=== PATIENT | male | born 1955 | race Caucasian/White ===

== ENCOUNTER → 2022-04-29 13:04 | Outpatient (BNVA) | payer OTHER, SELFPAY | PROVIDERS: Visit Provider Internal Medicine | DX: Z13.89 Encounter for screening for other disorder (principal) ==

== ENCOUNTER 2022-05-13 13:20 | Outpatient (REF) | payer OTHER, SELFPAY ==
[2022-05-13 15:20] LABS: MANUAL DIFF FLAG NO
[2022-05-13 16:04] LABS: Basophils Absolute Auto 0.1 X10*3/uL (0.0-0.2); Basophils Percent Auto 0.8 % (0-2); Eosinophils Absolute Auto 0.8 X10*3/uL (0.0-0.4); Eosinophils Percent Auto 10.5 % (0-4); Hematocrit 36.8 % (42.0-52.0); Hemoglobin 11.8 g/dl (14.0-18.0); Imm Gran Abs Auto 0.02 X10*3/uL (0.00-0.03); Imm Gran Pct Auto 0.3 % (0.0-0.4); Lymphocytes Absolute Auto 2.1 X10*3/uL (1.2-4.9); Lymphocytes Percent Auto 27.4 % (20-40); Mean Corpuscular HGB Conc 32.1 g/dl (31.0-36.0); Mean Corpuscular Hemoglobin 28.4 pg (27.0-33.0); Mean Corpuscular Volume 88.7 fL (80.0-98.0); Mean Platelet Volume 10.5 fL (9.4-12.4); Monocytes Absolute Auto 0.5 X10*3/uL (0.1-1.2); Monocytes Percent Auto 6.6 % (2-11); Neutrophils Absolute Auto 4.2 x10*3/uL (2.0-8.3); Neutrophils Percent Auto 54.4 % (45-73); Platelet Count 251 X10*3/uL (160-400); Red Blood Count 4.15 X10*6/uL (4.60-5.80); Red Cell Distribution Width 13.2 % (11.0-16.0); White Blood Count 7.7 X10*3/uL (4.8-10.8)
[2022-05-13 16:34] LABS: Alanine Aminotransferase 18 U/L (0-40); Albumin Level 4.1 g/dL (3.5-5.0); Alkaline Phosphatase 70 U/L (39-117); Anion Gap 10 (12-20); Aspartate Amino Transferase 17 U/L (5-37); Bilirubin Direct < 0.2 mg/dL (0.0-0.5); Bilirubin Total 0.2 mg/dL (0.0-1.0); Blood Urea Nitrogen 20 mg/dL (9-16); Calcium 9.4 mg/dL (8.4-10.2); Carbon Dioxide 27 mmol/L (22-29); Chloride 107 mmol/L (96-108); Estimated Glomerular Filt Rate 55; Glucose Random 144 mg/dL (60-115); Potassium 5.4 mmol/L (3.3-5.1); Sodium 139 mmol/L (135-145); Total Protein 6.9 g/dL (6.5-8.0)
== END 2022-05-13 13:21 | disposition home or self-care (01) ==
LOC: HO.LAB 13:20
PROVIDERS: PCP Internal Medicine; Visit Provider Internal Medicine
DX: M86.9 Osteomyelitis, unspecified (principal)
CPT/HCPCS: 36415; 80048; 80076; 85025

== ENCOUNTER → 2022-05-27 13:46 | Outpatient (BNVA) | payer OTHER, SELFPAY | PROVIDERS: PCP Internal Medicine; Visit Provider Internal Medicine | DX: Z13.89 Encounter for screening for other disorder (principal) ==

== ENCOUNTER → 2022-06-10 15:54 | Outpatient (RCR) | payer OTHER, SELFPAY ==
[2021-06-26 13:32] LABS: Estimated Average Glucose 246 mg/dL; Hemoglobin A1c % 10.2 %
[2021-08-19 14:59] LABS: MANUAL DIFF FLAG NO
[2021-08-19 15:48] LABS: Basophils Absolute Auto 0.1 X10*3/uL (0.0-0.2); Basophils Percent Auto 0.5 % (0-2); Eosinophils Absolute Auto 0.4 X10*3/uL (0.0-0.4); Eosinophils Percent Auto 3.4 % (0-4); Hematocrit 36.9 % (42.0-52.0); Hemoglobin 12.1 g/dl (14.0-18.0); Imm Gran Abs Auto 0.04 X10*3/uL (0.00-0.03); Imm Gran Pct Auto 0.4 % (0.0-0.4); Lymphocytes Absolute Auto 1.9 X10*3/uL (1.2-4.9); Lymphocytes Percent Auto 18.3 % (20-40); Mean Corpuscular HGB Conc 32.8 g/dl (31.0-36.0); Mean Corpuscular Hemoglobin 28.9 pg (27.0-33.0); Mean Corpuscular Volume 88.3 fL (80.0-98.0); Monocytes Absolute Auto 0.8 X10*3/uL (0.1-1.2); Monocytes Percent Auto 7.7 % (2-11); Neutrophils Absolute Auto 7.3 x10*3/uL (2.0-8.3); Neutrophils Percent Auto 69.7 % (45-73); Platelet Count 322 X10*3/uL (160-400); Red Blood Count 4.18 X10*6/uL (4.60-5.80); Red Cell Distribution Width 12.4 % (11.0-16.0); White Blood Count 10.5 X10*3/uL (4.8-10.8)
[2021-08-19 16:07] LABS: Anion Gap 16 (12-20); Blood Urea Nitrogen 30 mg/dL (9-16); C Reactive Protein 5.42 mg/dL (< or = 0.50); Calcium 10.1 mg/dL (8.4-10.2); Carbon Dioxide 26 mmol/L (22-29); Chloride 102 mmol/L (96-108); Estimated Glomerular Filt Rate 56; Glucose Random 70 mg/dL (60-115); Potassium 4.8 mmol/L (3.3-5.1); Sodium 139 mmol/L (135-145)
[2021-08-19 16:09] LABS: Estimated Average Glucose 249 mg/dL; Hemoglobin A1c % 10.3 %
[2021-08-19 16:33] LABS: Erythrocyte Sedimentation Rate 34 MM/HR (0-15)
[2022-04-29 13:27] LABS: Estimated Average Glucose 163 mg/dL; Hemoglobin A1C 174.6732 umol/L; Hemoglobin A1c % 7.3 %
--- NOTE | ~2022-06-10 | XR_ITS ---
EXAMINATION: XR FOOT, LEFT CLINICAL INFORMATION: Left foot nonhealing wound. COMPARISON: 04/16/2021. TECHNIQUE: AP, lateral, and oblique views of the left foot. FINDINGS: Soft tissue wound in the lateral and plantar surface of the mid foot with overlying densities likely associated with overlying bandages. There are questionable very subtle cortical irregularities and lucencies at the base of the fifth metatarsal bone adjacent to the wound. There is redemonstration of increased sclerosis and deformity of the phalanges of the fifth toe, similar to prior and possibly sequela of remote injury. There is new distortion with a lucent line in the distal phalanx of the first toe, suspicious for fracture. Similar degree of osteoarthritis involving the second through fifth tarsometatarsal joints. XR/XR foot LT min 3V IMPRESSION: 1. Questionable subtle cortical irregularities in the base of the fifth metatarsal bone adjacent to a soft tissue wound in which early osteomyelitis cannot be excluded. Correlate clinically and if indicated consider further correlation with an MR. 2. Interval fracture of the distal phalanx of the first toe. 3. Chronic deformity of the phalanges of the fifth toe.
--- NOTE | ~2022-06-10 | XR_ITS ---
EXAMINATION: XR TOES, LEFT CLINICAL INFORMATION: Nonhealing wound. Question osteomyelitis. COMPARISON: None TECHNIQUE: 3 views of the left toes were obtained. Overlying bandage obscures fine bony detail. FINDINGS: Soft tissue swelling of the first toe. Overlying bandage obscures is bony detail, however, there is no evidence of gross cortical destruction involving the distal first phalanx. The first IP joint is unremarkable. Mild degenerative changes of the first MTP joint. Cortical irregularity of the fifth proximal phalanx is suboptimally visualized although suggestive of an old fracture deformity, likely incompletely healed. XR/XR toe LT min 2V IMPRESSION: -No gross radiographic evidence for osteomyelitis of the first toe. If high clinical suspicion persists, further evaluation can be obtained with MRI imaging. -Cortical irregularity of the fifth proximal phalanx is suboptimally visualized although suggestive of an old fracture deformity, likely incompletely healed. Correlation with point tenderness recommended. Additional radiographs of the fifth toe can be obtained as clinically indicated.
== END | disposition home or self-care (01) ==
LOC: HO.WCC 04-16 08:01
PROVIDERS: Physician Assistant; PCP Family Medicine; Visit Provider Surgery
DX: E11.621 Type 2 diabetes mellitus with foot ulcer (principal); L97.512 Non-pressure chronic ulcer of other part of right foot with fat layer exposed; E11.51 Type 2 diabetes mellitus with diabetic peripheral angiopathy without gangrene; E11.42 Type 2 diabetes mellitus with diabetic polyneuropathy; I10 Essential (primary) hypertension; Z79.84 Long term (current) use of oral hypoglycemic drugs; Z72.0 Tobacco use; Z89.421 Acquired absence of other right toe(s); Z95.1 Presence of aortocoronary bypass graft
CPT/HCPCS: 11042; 11043; 11044; 11045; 36415; 73630; 73660; 80048; 83036; 84134; 85025; 85652; 86140; 87070; 87071; 87077; 87186; 87205; 88304; 88305; 88311; 97597; 99212

== ENCOUNTER 2023-04-21 13:53 | Outpatient (AMB) | payer OTHER, SELFPAY ==
--- NOTE | 2023-04-21 13:59 | A.OFFVIS_ITS ---
Intake Vital Signs 3 04/21/23 14:05 Height 5 ft 10 in Weight 205 lb BMI 29.4 Pulse 100 Pulse Source Pulse Oximeter Temp 98.4 F Temp Source Oral Pulse Oximetry (%) 99 Intake Visit Reasons: Ref.Wound C.osteom.X-Ray done in [facility] Allergies No Known Allergies Allergy (Verified 04/21/23 14:26) HPI Ref.Wound C.osteom.X-Ray done in [facility] 2 HPI0 Details He is referred by Wound Center for left third toe OM ,Pseudomonas aeruginosa cause. I had seen him 05/2022 for Acinetobacter OM and received Bactrim DS as not interested in usp IV treatment. He has had treatment with Doxycycline recently and this caused nausea. He has tolerated Levaquin in past and educated on risk of tendon rupture,cardiac events ,Cdiff and will proceed. [facility] Medical History Osteomyelitis Diabetes mellitus Review of Systems Const All systems reviewed & are unremarkable except as noted in HPI and below Physical Exam Vital Signs: Last Vital Signs Temp 98.4 F 04/21/23 14:05 Pulse 100 04/21/23 14:05 Pulse Ox 99 04/21/23 14:05 BMI result Body Mass Index 29.4 Const Other: General: cooperative Orientation/consciousness: patient oriented x3 HEENT Head: Yes normal to inspection Mouth: Normal oral and palatal mucosa present Eyes General: appearance normal, both eyes and all related structures Pupils: Equal, round and reactive pupils present Resp Effort & Inspection: normal respiratory effort Cardio Rate: regular rate Rhythm: regular rhythm GI Palpation (GI): Soft to palpation and nontender General: Yes no CVA tenderness Back/Spine/Pelvis Back: no CVA tenderness Skin General skin exam: no rashes or lesions noted Neuro General: patient oriented x3 Cranial nerves: Yes CN's II-XII intact bilaterally and Yes Equal, round and reactive pupils present Extrem Other: ulcer tip of toe neuropathy Psych Appearance: grossly normal Assessment & Plan Assessment & Plan (1) Osteomyelitis: Comment: He has recent ulcer,same area I had seen him in past for Code(s): M86.9 - Osteomyelitis, unspecified Plan: Levaquin 4-6 weeks. See in one month. Contact us prn need also Medications: New 2 levofloxacin 750 mg PO DAILY 30 tab-caps 1RF 30 days Discontinued 2 sulfamethoxazole-trimethoprim 800-160 mg (Bactrim DS) Discontinued Reason: None 1 tab PO BID 14 days 28 tabs 0RF Coding Level of Care Code New Pt Level 3 (85576) Diagnoses Osteomyelitis M86.9
[2023-04-21 14:05] VITALS: PULSE 100; TEMP 36.9; O2SAT 99; BMI 29.4
== END 2023-04-21 14:58 | disposition home or self-care (01) ==
PROVIDERS: PCP Internal Medicine; Visit Provider Internal Medicine
DX: M86.9 Osteomyelitis, unspecified (principal)
CPT/HCPCS: 99213

== ENCOUNTER → 2023-04-21 13:53 | Outpatient (BNVA) | payer OTHER, SELFPAY | PROVIDERS: PCP Internal Medicine; Visit Provider Internal Medicine ==

== ENCOUNTER 2023-05-19 13:27 | Outpatient (AMB) | payer OTHER, SELFPAY ==
[2023-05-19 13:43] VITALS: PULSE 87; O2SAT 99; BMI 29.8
--- NOTE | 2023-05-19 13:43 | MHC.OFFVIS ---
Intake Vital Signs 05/19/23 13:43 Height 5 ft 10 in Weight 208 lb BMI 29.8 Pulse 87 Pulse Source Pulse Oximeter Pulse Oximetry (%) 99 Intake Visit Reasons: 1 month levaquin follow up Allergies No Known Allergies Allergy (Verified 05/19/23 13:46) HPI 1 month levaquin follow up HPI Details He is doing well and has no complaints [facility] Medical History Osteomyelitis Diabetes mellitus Review of Systems Const All systems reviewed & are unremarkable except as noted in HPI and below Physical Exam Vital Signs: Last Vital Signs Pulse 87 05/19/23 13:43 Pulse Ox 99 05/19/23 13:43 BMI result Body Mass Index 29.8 Const General: cooperative Orientation/consciousness: patient oriented x3 HEENT Head: Yes normal to inspection Mouth: Normal oral and palatal mucosa present Eyes General: appearance normal, both eyes and all related structures Pupils: Equal, round and reactive pupils present Resp Effort & Inspection: normal respiratory effort Cardio Rate: regular rate Rhythm: regular rhythm GI Palpation (GI): Soft to palpation and nontender General: Yes no CVA tenderness Back/Spine/Pelvis Back: no CVA tenderness Skin General skin exam: no rashes or lesions noted Neuro General: patient oriented x3 Cranial nerves: Yes CN's II-XII intact bilaterally and Yes Equal, round and reactive pupils present Extrem General: Yes normal to inspection Psych Appearance: grossly normal Assessment & Plan Assessment & Plan (1) Osteomyelitis: Comment: He has no complaints Code(s): M86.9 - Osteomyelitis, unspecified Plan: Finish antibiotics Coding Level of Care Code Est Pt Level 3 (12047) Diagnoses Osteomyelitis M86.9
== END 2023-05-19 14:21 | disposition home or self-care (01) ==
LOC: HO.HID 13:27
PROVIDERS: PCP Internal Medicine; Visit Provider Internal Medicine
DX: M86.9 Osteomyelitis, unspecified (principal)
CPT/HCPCS: 99213

== ENCOUNTER → 2023-05-19 13:27 | Outpatient (BNVA) | payer OTHER, SELFPAY | PROVIDERS: PCP Internal Medicine; Visit Provider Internal Medicine ==

== ENCOUNTER 2024-01-05 16:17 | Outpatient (AMB) | payer OTHER, SELFPAY ==
--- NOTE | 2024-01-05 15:53 | A.OFFVIS_ITS ---
Intake Visit Reasons: DM on a pump/CONFIRMED Intake Note: NEW Patient presents today to establish treatment for Type Diabetes Mellitus with insulin pump: Last Diabetic eye exam was on: DUE Last Podiatry exam was on: Does not see a Band Tier Most recent HbA1c: DUE Random Glucose- ___ mg/dL, Today Allergies No Known Allergies Allergy (Verified 05/19/23 13:46) [facility] Medical History (Updated 01/05/24 @ 16:03 by MAGNOLIA Ramey) Tubular adenoma of colon Screening for colorectal cancer Reflux esophagitis [place] (myocardial infarction) Obstructive sleep apnea Obesity due to excess calories Migraine LV dysfunction Hypercholesteremia HTN (hypertension) Hearing aid worn Diabetic foot ulcer CAD (coronary artery disease) Abdominal pain Osteomyelitis Diabetes mellitus Surgical History (Updated 01/05/24 @ 16:03 by MAGNOLIA Ramey) History of vasectomy Hx of colonoscopy S/P CABG x 3 Family History (Updated 01/05/24 @ 16:04 by MAGNOLIA Ramey) Father No problems noted. Mother No problems noted. Social History (Updated 01/05/24 @ 16:04 by MAGNOLIA Ramey) Alcohol intake: current Alcohol intake frequency: holidays/special occasions only Patient Tobacco Use Status: Never used Tobacco Coding
--- NOTE | 2024-01-05 15:57 | A.OFFVIS_ITS ---
Vital Signs 01/05/24 16:21 Height 5 ft 10 in Weight 198 lb 6.656 oz BMI 28.5 BP 128/78 Blood Pressure Location Rt brachial Position Sitting Pulse 95 Pulse Source Pulse Oximeter Intake Visit Reasons: DM on a pump/CONFIRMED Intake Note: NEW Patient presents today to establish treatment for Type 2 Diabetes Mellitus with insulin pump: Last Diabetic eye exam was on: Next Month for injections Last Podiatry exam was on: Does not see a Software Engineer Kernel Most recent HbA1c: 8.3%, 01/05/2024 Random Glucose- 193 mg/dL, Today Administrative Services Director Required: No Accompanied by: Self / Same As Patient Allergies No Known Allergies Allergy (Verified 01/05/24 16:33) HPI Comments Details: 68 YO male who is seen in consultation for T2DM at the request of PCP. A1C today in the office 8.3%, A1C 7.3% several months ago. He is on a tandem insulin pump but does not enter carbohydrates into his pump Initially diagnosed with T2DM 1998. Was initially started on treatment with metformin and glyburide Current regimen: T slim X 2 insulin pump Lispro(admelog) Metformin 1000 mg b.i.d. Trulicity 3 mg weekly Farxiga 10 mg daily There is only 5 hours of sensor data as patient just started on a new tandem pump. Started off at 300 and is now down to 210 Pump Settings: Basal 12AM 1.13 units/hour Sensitivity 12 AM 31 Insulin to carb ratio 12 AM 9.5 BG target 12AM 110 mg/dL Reports low sugars none Treats lows with something sweet. Family history of T2DM in maternal grandfather Has eyes checked yearly, last eye exam: October 2023 sees retinal specialist Has retinopathy has amd [place] [facility] [facility] [place] small foot ulcer on left foot great toe, has Charcot arthropathy has had a 2 toes amputated right foot, partial amputation left toe previously was followed by Podiatry a + nephropathy, on LUIS. eGFR 55 03/2022 Has HLD, on statin. Last LDL [] as measured on []. Labs not available today Has CAD. 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 [facility] Medical History (Updated 01/05/24 @ 16:03 by MAGNOLIA Ramey) Tubular adenoma of colon Screening for colorectal cancer Reflux esophagitis [place] (myocardial infarction) Obstructive sleep apnea Obesity due to excess calories Migraine LV dysfunction Hypercholesteremia HTN (hypertension) Hearing aid worn Diabetic foot ulcer CAD (coronary artery disease) Abdominal pain Osteomyelitis Diabetes mellitus Surgical History (Updated 01/05/24 @ 16:03 by MAGNOLIA Ramey) History of vasectomy Hx of colonoscopy S/P CABG x 3 Family History (Updated 01/05/24 @ 16:04 by MAGNOLIA Ramey) Father No problems noted. Mother No problems noted. Social History (Updated 01/05/24 @ 16:04 by MAGNOLIA Ramey) Alcohol intake: current Alcohol intake frequency: holidays/special occasions only Patient Tobacco Use Status: Never used Tobacco Physical Exam Vital Signs: Last Vital Signs Pulse 95 01/05/24 16:21 BP 128/78 01/05/24 16:21 BMI result Body Mass Index 28.5 Absence of Cushingoid features. Absence of acromegalic features. Neck exam reveals nl size thyroid about 15 gms. No thyroid nodules palpable. No carotid bruits present. Lungs CTA. Heart S1 S2, Reg R/R. No M/R/ G. Skin exam reveals absence of vitiligo or acanthosis nigricans. Abdominal exam reveals Soft NT/ND with NA BS. No organomegaly present. Const Other: Absence of Cushingoid features. Absence of acromegalic features. Neck exam reveals nl size thyroid about 15 gms. No thyroid nodules palpable. Heart S1 S2, Reg R/R. No M/R G. Skin exam reveals absence of vitiligo or acanthosis nigricans. No edema. Visual exam of foot performed. Small ulcer covered right great toe, inter digit maceration/fissuring left foot onychomycosisof nail bed, well trimmed, no callouses. charcot foot deformity bilateral with dropped arch, bunions Neck Other: . Extrem Other: Visual exam of foot performed. No ulcerations or open lesions. No onchomycosis, no callouses.Pulses 2 + distally Sensation intact to monofilament exam. Vibratory sensation sensed is intact with 128 Hz tuning fork Results AMB Hemoglobin A1c AMB Hemoglobin A1c 8.3 % Last Edit by MAGNOLIA Ramey on 01/05/24 16:43 Assessment & Plan Assessment & Plan (1) Diabetes mellitus: Code(s): E11.9 - Type 2 diabetes mellitus without complications Category: Medical Plan: 68-year-old type 2 diabetic here today for new consult. He is on a tandem T slim X 2 insulin pump, Farxiga, metformin and Trulicity. A1c in the office today is 8.3%. He has not been entering carbs into his pump and today we rev iewed the fact that 40% of his insulin should be to cover meals. He has agreed to count carbs and to add these to his pump and was shown how before the start of each meal. I will see him back in 2 weeks to review his pump download. He should continue to follow with his dot net architect, retinal specialist, automotive leasing sales representative, vascular MD and forest resource specialist and he will be given a referral to Podiatry. Prescription sent today for Trulicity, Farxiga, metformin, insulin for pump, ketone test strips, glucose tablets. Backup Lantus will not be sent today until we have an idea of how much basal insulin he is using. Orders: Orders AMB Hemoglobin A1c Today E11.9 - Type 2 diabetes mellitus without complications Patient Instructions: The patient was counseled to achieve a target A1C of 7% (154 avg). Fasting blood sugars should be 90-130 in the morning and less than 180 two hours after meals. Reviewed the relationship between poor diabetic control and the development of complications. Briefly reviewed the need for ketone testing with higher sugars. Patient has unfamiliar with content and we will schedule him to see both the Lidia Perez RD and high school french teacher Coding Level of Care Code New Pt Level 5 (63959) Complex EM visit Add On G2211 Diagnoses Diabetes mellitus E11.9 Time Spent (min) 50 Comment Time spent reviewing labs/provider notes, face to face, chart doc
[2024-01-05 16:21] VITALS: BP 128/78; PULSE 95; BMI 28.5
[2024-01-05 16:37] LABS: Glucose, Whole Blood 193 mg/dL (60-115)
== END 2024-01-07 10:31 | disposition home or self-care (01) ==
PROVIDERS: PCP Internal Medicine; Visit Provider Nurse Practitioner Adult Health
DX: E11.9 Type 2 diabetes mellitus without complications (principal); Z79.4 Long term (current) use of insulin
CPT/HCPCS: 99204; G2211

== ENCOUNTER → 2024-01-05 16:17 | Outpatient (BNVA) | payer OTHER, SELFPAY | PROVIDERS: PCP Internal Medicine; Visit Provider Nurse Practitioner Adult Health | DX: E11.9 Type 2 diabetes mellitus without complications (principal); Z96.41 Presence of insulin pump (external) (internal) | CPT/HCPCS: 82947; 83036 ==

== ENCOUNTER 2024-01-26 11:02 | Outpatient (AMB) | payer OTHER, SELFPAY ==
--- NOTE | 2024-01-26 09:18 | A.OFFVIS_ITS ---
Vital Signs 01/26/24 11:06 Height 5 ft 10 in Weight 198 lb 6.656 oz BMI 28.5 BP 134/80 Blood Pressure Location Rt brachial Position Sitting Pulse 85 Pulse Source Pulse Oximeter Intake Visit Reasons: DM/LVM Intake Note: Patient presents today for a follow-up on Type 2 Diabetes Mellitus/ Insulin Pump: Last Diabetic eye exam was on: Next Month for injections Last Podiatry exam was on: Does not see a Intellectual Property Paralegal Most recent HbA1c: 8.3%, 01/05/2024 Random Glucose- 112 mg/dL, Today Fast Food Fry Cook Required: No Accompanied by: Self / Same As Patient Allergies No Known Allergies Allergy (Verified 01/05/24 16:33) HPI Comments Details: 68 YO male who is seen in f/u for T2DM. He was seen as an initial consult several weeks ago at which time he was counseled to start entering carbohydrate grams into his pump which he has started to do. A1C 01/05/24 8.3%, previous A1C 7.3%. He is on a tandem insulin pump. [place] [facility] [place] which he reports is improving. He has been referred also to Dr. Sanchez. Initially diagnosed with T2DM 1998. Was initially started on treatment with metformin and glyburide Current regimen: T slim X 2 insulin pump Lispro(admelog) Metformin 1000 mg b.i.d. Trulicity 3 mg weekly Farxiga 10 mg daily Dexcom average glucose: 178 14 day continuous glucose monitor report reviewed Glucose Managment indicator 7.6 % Days with CGM data [ ] % TIme in ranges: 30% very high (above 250) 11 % high ?(181-250) 56 % in range ?(70-180] 0% low (69-55) 0 % ?very low (below 54) Interpretation [ baseline 20 points over target with postprandial elevations] Pump Settings: Basal 12AM 1.13 units/hour Sensitivity 12 AM 31 Insulin to carb ratio 12 AM 9.5 NEW 8.5 BG target 12AM 110 mg/dL Reports low sugars none Treats lows with something sweet. Family history of T2DM in maternal grandfather Has eyes checked yearly, last eye exam: October 2023 sees retinal specialist Has retinopathy has amd [place] [facility] [place] small foot ulcer on left foot great toe, has Charcot arthropathy has had a 2 toes amputated right foot, partial amputation left toe previously was followed by Podiatry a + nephropathy, on LUIS. eGFR 55 03/2022 Has HLD, on statin. Last LDL [] as measured on []. Labs not available today Has CAD. 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 COUNT INCLUDES THE [facility] Medical History (Updated 01/05/24 @ 16:03 by MAGNOLIA Ramey) Tubular adenoma of colon Screening for colorectal cancer Reflux esophagitis [place] (myocardial infarction) Obstructive sleep apnea Obesity due to excess calories Migraine LV dysfunction Hypercholesteremia HTN (hypertension) Hearing aid worn Diabetic foot ulcer CAD (coronary artery disease) Abdominal pain Osteomyelitis Diabetes mellitus Surgical History (Updated 01/05/24 @ 16:03 by MAGNOLIA Ramey) History of vasectomy Hx of colonoscopy S/P CABG x 3 Family History (Updated 01/05/24 @ 16:04 by MAGNOLIA Ramey) Father No problems noted. Mother No problems noted. Social History (Updated 01/05/24 @ 16:04 by MAGNOLIA Ramey) Alcohol intake: current Alcohol intake frequency: holidays/special occasions only Patient Tobacco Use Status: Never used Tobacco Physical Exam Vital Signs: Last Vital Signs Pulse 85 01/26/24 11:06 BP 134/80 01/26/24 11:06 BMI result Body Mass Index 28.5 Const Other: Absence of Cushingoid features. Absence of acromegalic features. Neck exam reveals nl size thyroid about 15 gms. No thyroid nodules palpable. Heart S1 S2, Reg R/R. No M/R G. Skin exam reveals absence of vitiligo or acanthosis nigricans. Office Procedures Glucose Monitoring Details Details: See [facility] [address] - Glucose monitoring, continuous-physician I&R Procedure code (CPT) selection complete Assessment & Plan Assessment & Plan (1) Diabetes mellitus: Code(s): E11.9 - Type 2 diabetes mellitus without complications Category: Medical Plan: 68-year-old type 2 diabetic on a tandem insulin pump with macro/macrovascular complications of CAD, Charcot foot, retinopathy, nephropathy and neuropathy with recent A1c of 8.3%. GME my on current pump download for the past 2 weeks is 7.6% with some postprandial bumps upward. Insulin carb ratio adjusted to 1: 8.5 to give more pre-prandial insulin and he was advised to bolus 10 minutes before the meals. If his average is not 154 he can reduce the insulin to carb ratio further 1: 7.5. The patient made the setting changed today in the clinic which was confirmed by provider. Would like to get his A1c in the 7% range to prevent progression of diabetic complications and promote better wound healing of his foot ulcer. He has picked up ketone test strips and we again reviewed protocol today for DKA prevention and treatment. I will see him back in 4 weeks to relook at his pump download. The patient had an opportunity to ask questions regarding treatment plan. The patient expressed understanding and agreement with the above treatment plan. The patient is aware they should contact our office by phone for worsening glucose readings or for any low blood sugars which may warrant a change in diabetes medication. Compliance is encouraged with medications and any followup testing/consults which may have been ordered. Orders: Orders AMB Glucose Monitoring Today E11.9 - Type 2 diabetes mellitus without complications Medications: New acetone (urine) test (Ketone Urine Test strips) P.r.n. t.i.d. glucose over 250, nausea, vomiting or illness 25 ea 1RF dapagliflozin propanediol (Farxiga) 10 mg PO DAILY 90 days 90 tabs 3RF dulaglutide (Trulicity) 3 mg (0.5 mL) subcut QWEEK 84 days 6 mL 3RF lisinopril 40 mg PO DAILY 90 days 90 tabs 3RF metformin 1,000 mg PO BID 90 days 180 tabs 3RF glucagon 3 mg/actuation (Baqsimi) 3 mg intranasal ONCE 30 days PRN 2 ea 1RF Unresponsive hypoglycemia may repeat in 15min Patient Instructions: The patient was counseled to achieve a target A1C of 7% (154 avg). Fasting blood sugars should be 90-130 in the morning and less than 180 two hours after meals. Reviewed the relationship between poor diabetic control and the development of complications. Troubleshooting after starting new pod or inserting new insulin set: Occlusion, adhesive tape sensitivity, redness Check BG 2 hours after site change Safety information: Importance of a backup plan, for manual injections, proper prescriptions and emergency supplies ketone strips, and rules for testing for ketones Symptoms of DKA (diabetic ketoacidosis): early: frequent urination, dry mouth, fatigue, feeling ill, severe symptoms: ketones in the urine, abdominal pain, nausea, vomiting and weakness. It is important to hydrate with sugar free liquids every 15-30 minutes and bring the sugars down to normal levels. If you are moderate or severe with ketones or unable to bring glucose to less than 200, go to the emergency room. Wear closed toe shoes, never walk barefooted and inspect the feet daily. For any signs of infection or open wound patient you should notify your PCP or go to urgent care/ER. Coding Level of Care Code Tele Est Pt Level 3 (23908) Diagnoses Diabetes mellitus E11.9 CPT Codes Details - CPT: 48265 - Glucose monitoring, continuous-physician I&R ([id number]) Time Spent (min) 30 Comment Reviewing labs/provider notes, glucose sensor/pump reports, face to face, chart doc
[2024-01-26 11:06] VITALS: BP 134/80; PULSE 85; BMI 28.5
[2024-01-26 11:19] LABS: Glucose, Whole Blood 112 mg/dL (60-115)
== END 2024-01-26 11:33 | disposition home or self-care (01) ==
LOC: HO.ENCR 11:02
PROVIDERS: PCP Internal Medicine; Visit Provider Nurse Practitioner Adult Health
DX: E11.9 Type 2 diabetes mellitus without complications (principal)
CPT/HCPCS: 95251; 99213

== ENCOUNTER → 2024-01-26 11:02 | Outpatient (BNVA) | payer OTHER, SELFPAY | PROVIDERS: PCP Internal Medicine; Visit Provider Nurse Practitioner Adult Health | DX: E11.610 Type 2 diabetes mellitus with diabetic neuropathic arthropathy (principal); E11.319 Type 2 diabetes mellitus with unspecified diabetic retinopathy without macular edema; E11.21 Type 2 diabetes mellitus with diabetic nephropathy; E11.40 Type 2 diabetes mellitus with diabetic neuropathy, unspecified; Z96.41 Presence of insulin pump (external) (internal) | CPT/HCPCS: 82947 ==

== ENCOUNTER 2024-02-16 14:36 | Outpatient (RCR) | payer OTHER, SELFPAY | END 2024-03-14 12:41 | disposition home or self-care (01) | LOC: HO.WCC 14:36 | PROVIDERS: Visit Provider Surgery | DX: E11.621 Type 2 diabetes mellitus with foot ulcer (principal); L97.512 Non-pressure chronic ulcer of other part of right foot with fat layer exposed; Z79.4 Long term (current) use of insulin; Z79.85 Long-term (current) use of injectable non-insulin antidiabetic drugs; Z79.84 Long term (current) use of oral hypoglycemic drugs; Z79.82 Long term (current) use of aspirin; Z79.899 Other long term (current) drug therapy | CPT/HCPCS: 11042; 11043; 11044; 11730; 87070; 87073; 87077; 87186; 87205; 97597; 99212; 99213 ==

== ENCOUNTER 2024-02-23 10:30 | Outpatient (AMB) | payer OTHER, SELFPAY ==
--- NOTE | 2024-02-23 07:50 | A.OFFVIS_ITS ---
Vital Signs 02/23/24 10:36 Height 5 ft 10 in Weight 198 lb 6.656 oz BMI 28.5 BP 120/78 Blood Pressure Location Rt brachial Position Sitting Pulse 79 Pulse Source Pulse Oximeter Intake Visit Reasons: DM/CONF Intake Note: Patient presents today for a follow-up on Type 2 Diabetes Mellitus/ Insulin Pump: Last Diabetic eye exam was on: February for injections Last Podiatry exam was on: Does not see a Brick Handler Most recent HbA1c: 8.3%, 01/05/2024 Random Glucose- 110 mg/dL, Today Junior Analyst Required: No Accompanied by: Self / Same As Patient Allergies No Known Allergies Allergy (Verified 01/05/24 16:33) HPI Comments Details: 68 YO male who is seen in f/u for T2DM on a Tandem insulin pump. A1C 01/05/24 8.3%, previous A1C 7.3%. He was seen as an initial consult 01/05/2024 and he has been working on entering all of his carbohydrates into his pump additionally, his carb ratio was adjusted in January to give him more preprandial insulin. He is followed by wound clinic at [facility] for a foot ulcer which he reports is improving. He has been referred also to Dr. Sanchez. He has a Charcot foot. Initially diagnosed with T2DM 1998. Was initially started on treatment with metformin and glyburide Current regimen: T slim X 2 insulin pump Lispro(admelog) Metformin 1000 mg b.i.d. Trulicity 3 mg weekly Farxiga 10 mg daily Dexcom average glucose: 153 I 14 day continuous glucose monitor report reviewed Glucose Managment indicator [ ] % Days with CGM data 70 % TIme in ranges: 5.9 % very high (above 250) 23 % high ?(181-250) 71 % in range ?(70-180] 0 % low (69-55) 0 % ?very low (below 54) 35 % coefficient of variation desired less than 36% Interpretation [ numbers in excellent control without hypoglycemia] Total daily dose 36 units 65% basal 23 units Bolus 35% 12.6 Pump Settings: Basal 12AM 1.13 units/hour Sensitivity 12 AM 31 Insulin to carb ratio 12 AM 8.5 BG target 12AM 110 mg/dL Reports low sugars none Treats lows with something sweet. Family history of T2DM in maternal grandfather Has eyes checked yearly, last eye exam: October 2023 sees retinal specialist Has retinopathy has amd Followed by Wound Care Clinic at [facility]: Has small foot ulcer on left foot great toe, has Charcot arthropathy has had a 2 toes amputated right foot, partial amputation left toe previously was followed by Podiatry a + nephropathy, on LUIS. eGFR 55 03/2022 Has HLD, on statin. Last LDL [] as measured on []. Labs not available today Has CAD. 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 [facility] Medical History Tubular adenoma of colon Screening for colorectal cancer Reflux esophagitis Old [place] (myocardial infarction) Obstructive sleep apnea Obesity due to excess calories Migraine LV dysfunction Hypercholesteremia HTN (hypertension) Hearing aid worn Diabetic foot ulcer CAD (coronary artery disease) Abdominal pain Osteomyelitis Diabetes mellitus Surgical History History of vasectomy Hx of colonoscopy S/P CABG x 3 Family History Father No problems noted. Mother No problems noted. Social History Alcohol intake: current Alcohol intake frequency: holidays/special occasions only Patient Tobacco Use Status: Never used Tobacco Physical Exam Vital Signs: Last Vital Signs Pulse 79 02/23/24 10:36 BP 120/78 02/23/24 10:36 BMI result Body Mass Index 28.5 Const Other: Absence of Cushingoid features. Absence of acromegalic features. Neck exam reveals nl size thyroid about 15 gms. No thyroid nodules palpable. Heart S1 S2, Reg R/R. No M/R G. Skin exam reveals absence of vitiligo or acanthosis nigricans. Visual exam of foot performed. Charcot foot with several toe amputation No ulcerations or open lesions. mild inter digit or fissuring. nails thickened and yellowing, well trimmed, no callouses. Sensation intact to monofilament exam. Office Procedures Glucose Monitoring Details Details: see [facility] [id number] - Glucose monitoring, continuous-physician I&R Procedure code (CPT) selection complete Results Reviewed Results Reviewed: Laboratory Last Values Glucose (Clinic) 110 mg/dL (60-115) 02/23/24 10:42 Assessment & Plan Assessment & Plan (1) Diabetes mellitus: Code(s): E11.9 - Type 2 diabetes mellitus without complications Category: Medical Plan: 68-year-old type 2 diabetic with Charcot foot, foot ulcer followed by wound clinic, cardiac comorbidities, nephropathy, retinopathy and neuropathy with improved glycemic control. Recent pump download shows an average of 153. He is still struggling to enter his carbs prior to his sugars rising and was encouraged to do so. He is no longer followed by the wound center and has an MRI scheduled as he has a prior history of osteomyelitis and has follow up with Dr. Sanchez The patient had an opportunity to ask questions regarding treatment plan. The patient expressed understanding and agreement with the above treatment plan. The patient is aware they should contact our office by phone for worsening glucose readings or for any low blood sugars which may warrant a change in diabetes medication. Compliance is encouraged with medications and any followup testing/consults which may have been ordered. Orders: Orders AMB Glucose Monitoring Today E11.9 - Type 2 diabetes mellitus without complications Medications: New insulin glargine (Lantus Solostar U-100 Insulin) 25 units (0.25 mL) subcut DAILY PRN 6 mL 1RF prn pump failure Patient Instructions: Symptoms of DKA (diabetic ketoacidosis): early: frequent urination, dry mouth, fatigue, feeling ill, severe symptoms: ketones in the urine, abdominal pain, nausea, vomiting and weakness. It is important to hydrate with sugar free liquids every 15-30 minutes and bring the sugars down to normal levels. If you are moderate or severe with ketones or unable to bring glucose to less than 200, go to the emergency room. Troubleshooting after starting new pod or inserting new insulin set: Occlusion, adhesive tape sensitivity, redness Check BG 2 hours after site change Safety information: Importance of a backup plan, for manual injections, proper prescriptions and emergency supplies ketone strips, and rules for testing for ketones The patient was counseled to always carry a source of sugar and on the rule of 15's: Take 3 glucose tablets and repeat again in 15 minutes if blood sugar is not in normal range. Continue to repeat every 15 minutes until blood sugar is normal. The patient was counseled to achieve a target A1C of 7% (154 avg). Fasting blood sugars should be 90-130 in the morning and less than 180 two hours after meals. Reviewed the relationship between poor diabetic control and the development of complications. Check your feet daily looking for any signs of infection, ulceration and seek medical attention if this occurs. Break in shoes gradually and do not wear open-toed shoes or walk barefooted. Coding Level of Care Code Est Pt Level 4 (58543) Diagnoses Diabetes mellitus E11.9 CPT Codes Details - CPT: 24149 - Glucose monitoring, continuous-physician I&R ([id number]) Time Spent (min) 30 Comment Reviewing labs/provider notes, glucose sensor/pump reports, face to face, chart doc
[2024-02-23 10:36] VITALS: BP 120/78; PULSE 79; BMI 28.5
[2024-02-23 10:47] LABS: Glucose, Whole Blood 110 mg/dL (60-115)
--- OUTSIDE RECORDS SUMMARY | 2024-02-29 17:41 | XMS_ITS | Data Portability ---
Author Organization [facility], [facility] Address [address] [place] [address] Assessment Encounter Date Assessment Date Assessment LastModified by Organization Details LastModified Time 06/30/2023 06/30/2023 Assessment: Right ring trigger finger, initial evaluation Plan: Right ring finger flexor tendon sheath cortisone injection is performed in the usual fashion. Follow-up for this problem be on a as needed basis. He understands the option for surgery if this fails to respond to conservative treatment. nas Not available 06/30/2023 17:05:18 Plan of Treatment Reminders Order Date Submit Date Provider Last Modified By Organization Details Last Modified Time Details Appointments None record ed. Lab None record ed. Referral None record ed. Procedures None record ed. Surgeries None record ed. Imaging None record ed. Medication Orders None record ed. Patient TargetsNo targets recorded. Patient InstructionsNo instructions recorded. Reason for Referral None Reported. Procedures Surgical History Date Name Laterality Status Provider Name and Address Organization Details Recorded Time Trigger Finger Kenalog Injection completed Olivia Carvajal MD [address] [facility] [address], [place], [address], [facility]] [facility] 06/30/2023 17:04:27 Imaging Results None recorded. Procedure Notes None recorded. Medical Equipment None Reported. Allergies No known drug allergies Medications Name Sig Start Date Stop Date Status Note LastModified by Organization Details LastModified Time chlorthalidone 25 mg tablet active Not Available Not Available No t Available sulfamethoxazole 800 mg-trimethoprim 160 mg tablet active Not Available Not Availabl e Not Available dextroamphetamine- amphetamine 30 mg tablet active Not Available Not Available Not Available nifedipine ER 60 mg tablet,extended release 24 hr active Not Available Not Availabl e Not Available nifedipine ER 90 mg tablet,extended release 24 hr active Not Available Not Availabl e Not Available metformin 1,000 mg tablet active Not Available Not Available Not Available dextroamphetamine- amphetamine 15 mg tablet active Not Available Not Available Not Available insulin lispro (U-100) 100 unit/mL subcutaneous solution active Not Available Not Available Not Available levofloxacin 750 mg tablet active Not Available Not Available No t Available lisinopril 40 mg tablet active Not Available Not Available Not Available doxycycline hyclate 100 mg tablet active Not Available Not Available Not Available amoxicillin 875 mg-potassium clavulanate 125 mg tablet active Not Available Not Available Not Available oxycodone 5 mg tablet active Not Available Not Available Not Available rosuvastatin 40 mg tablet active Not Available Not Available Not Available tadalafil 5 mg tablet active Not Available Not Available Not Available metoprolol tartrate 25 mg tablet active Not Available Not Available Not Available Farxiga 10 mg tablet active Not Available Not Available Not Available AutoSoft XC Infusion Set 23 active Not Available Not Avail able Not Available t:slim X2 subcutaneous cartridge active Not Available Not Available No t Available Trulicity 3 mg/0.5 mL subcutaneous pen injector active Not Available Not Available Not Available Vitals Date Recorded Body height Body mass index (BMI) Body weight Provider Name and Address Organization Details Last Updated DateTime 06/30/2023 177.8 cm 29.1 kg/m2 92544.25 g JOLLY HOANG [place] - [place] [facility] 06/30/2023 15:23:01 Social History None recorded. Functional Status None recorded. Mental Status None recorded. Family History Nothing Reported. Medical History No medical history recorded. Past Encounters Encounter ID Performer Location Encounter Start Date Encounter Closed Date Diagnosis/Indication Diagnosis SNOMED-CT Code Diagnosis ICD10 Code [id number] MD Juliet Vyas [address] [place] [address] 06/30/2023 14:38:02 07/26/2023 09:24:09 Trigger finger of right hand [id number] M65.341 Health Concerns Section Related Observation LastModified by Organization Detai ls LastModified Time None Recorded Concern Status LastModified by Organization Details LastModified Time None Recorded Advance Directives Directive None Recorded Payers Encounter Date Sequence Insurance Name Policy Number Policy Russ Covered Member ID Russ Member ID Guarantor Name 06/30/2023 1 [facility] [id number] Eran Wren [id number] Eran Wren Notes Date Note Type Note Provider Name and Address Organization Details Recorded Time 06/30/2023 text/html Patient is a pleasant 68-year-old ujwyp-pygl-ajwrd ant male who has a prior history of right long trigger finger, reports the finger is no longer locking but he does have a bit of a PIP flexion contracture due to the chronicity of the problem, here today mainly to discuss complaints of painful locking in the right ring finger. He has had no cortisone injections to the ring finger in the past. He is very good friends with Jolly. Olivia Carvajal MD [address] [place] [address] [address], [place], [address], [facility] [place] [facility] 06/30/2023 17:05:43
--- OUTSIDE RECORDS SUMMARY | 2024-02-29 17:41 | XMS_ITS | Continuity of Care Document ---
Author Organization [facility] Address [address] [place] [address]- Care Team Providers Care Supervisor Pipe Joints Name Role Phone Ino YI, Traci Primary Care Physici an Encounter [facility] Date(s): 01/24/24 - 02/23/24 [facility] [address] [place], [place] [address] Encounter Type: Triage Allergies, Adverse Reactions, Alerts No Known Allergies Immunizations Given and Recorded Vaccine Date Status Refusal Reason influenza virus vaccine, inactivated 03/26/21 Robbie rded influenza virus vaccine, inactivated 01/14/17 Robbie rded influenza virus vaccine, inactivated 03/28/13 Orbbie rded influenza virus vaccine, inactivated 12/19/11 Robbie rded influenza virus vaccine, inactivated 1 12/31/09 Gi mickie influenza virus vaccine, inactivated 2 09/19/09 Gi mickie influenza virus vaccine, inactivated 3 12/20/08 Gi mickie SARS-CoV-2 (COVID-19) mRNA-1273 vaccine 02/21/21 R ecorded pneumococcal 23-valent vaccine 09/04/14 Given influ virus vac, H1N1, inactive(oldterm) 4 09/19/09 Given Hepatitis B Vaccine (old term) 5 09/19/09 Given Hepatitis B Vaccine (old term) 6 09/19/09 Given Hepatitis B Vaccine (old term) 7 09/19/09 Given Pneumococcal Poly (PPV23) (oldterm) 05/19/07 Given diphtheria-tetanus toxoids (DT) 05/08/00 Given 1Admin Note: given on 12-[facility]-09 at [facility] 2Admin Note: [facility] states done at [facility] dosent Know exact date. 3Admin Note: vis sheet 10/30/08 given 4Admin Note: done at work [facility] not sure of date 2009 5Admin Note: Done at [facility] #3 08/22/09 6Admin Note: Done at [facility] #2 02/17/09 7Admin Note: Done at the work Connection at [facility] Problem List Condition Confirmation Course Effective Dates Status Health Status Informant Abdominal aortic atherosclerosis Confirmed Active CAD (coronary artery disease) Confirmed Active Diabetes mellitus with complication Confirmed Active Diabetic foot ulcers Confirmed Active Diarrhea Confirmed Active Hearing aid worn Confirmed Active S/P CABG x 3 Confirmed Active Hypercholesterolemia Confirmed Active HTN (hypertension) Confirmed Active Insulin pump status Confirmed Active LV dysfunction Confirmed Active Migraine Confirmed Active Obesity due to excess calories Confirmed Active Obstructive sleep apnea Confirmed Active [place] (myocardial infarction) Confirmed Active Reflux esophagitis Confirmed Active Tubular adenoma of colon Confirmed Active Social History Social History Type Response Smoking Status Former smoker, quit more than 30 days ago; Type: Cigarettes; Tobacco use times per day: <1 pack a day; Started at age: 22; Stopped at age: 27; entered on: 10/22/21 Sex Sex Representation Male (finding) Patient Care team information Care Team Personnel Name: Devon Parikh RN Position: [facility] RN Member Role: Primary Care Nurse Name: Noy Harkins RN Position: [facility] RN Member Role: Primary Care Nurse Name: Liliana Elam Position: [facility] Outreach Member Role: Lifetime Consulting Physician Name: Marjorie Chávez Position: [facility] Outreach Member Role: Lifetime Consulting Physician Name: Traci Mckinnon MD Position: [facility] Physician - Primary Care Member Role: PCP Address: [address] [place] [address] [address] [place] [address]- Telecom: Name: Sanchez SAENZ, Van Crisostomo Position: [facility] RN Member Role: Primary Care Nurse Name: Adiel Echeverria MD Position: [facility] Renal MD Member Role: Lifetime Consulting Physician Address: [address] [place] [address] [address] [facility] [place] [address]- Telecom: Name: Olu Romero RN Position: [facility] RN Member Role: Primary Care Nurse Name: Ed Villela Position: [facility] RN Member Role: Primary Care Nurse Care Team Related Persons Name: JUAN LEE Insurance Providers Guarantor name: HAIM LEE Pending [facility] Information #: 1 Payer: [facility] Member Number: NA Policy Number: NA Group Number: NA
--- OUTSIDE RECORDS SUMMARY | 2024-02-29 17:41 | XMS_ITS | Continuity of Care Document ---
Author Organization [facility] Address [address] [place] [address]- Care Team Providers Care Circular Sawyer Helper Name Role Phone Ino YI, Traci Primary Care Physici an Encounter [facility] Date(s): 12/24/23 - 02/11/24 [facility] [address] [place] [id number] Attending Physician: Janett Severino MD Admitting Physician: Janett Severino MD Referring Physician: Traci Mckinnon MD Encounter Type: Pre-OutPatient One Time Allergies, Adverse Reactions, Alerts No Known Allergies Immunizations Given and Recorded Vaccine Date Status Refusal Reason influenza virus vaccine, inactivated 03/26/21 Robbie rded influenza virus vaccine, inactivated 01/14/17 Robbie rded influenza virus vaccine, inactivated 03/28/13 Robbie rded influenza virus vaccine, inactivated 12/19/11 Robbie [...] of date 2009 5Admin Note: Done at [facility]3 08/22/09 6Admin Note: Done at [facility] #2 02/17/09 7Admin Note: Done at the work Connection at [facility] # Problem List Condition Confirmation Course Effective Dates [...] Active Obstructive sleep apnea Confirmed Active Old [place] (myocardial infarction) Confirmed Active Reflux esophagitis Confirmed [...] Team Personnel Name: Devon Parikh RN Position: [facility] RN Member Role: Primary Care Nurse Name: Noy Harkins RN Position: [facility] RN Member Role: Primary Care Nurse Name: Liliana Elam Position: [facility] Outreach Member Role: Lifetime Consulting Physician Name: Traci Mckinnon MD Position: [facility] Physician - Hospital Medicine Member Role: PCP Address: [address] [place] [address] [address] [place] [address]- [place] Telecom: Name: Van Bradford RN Position: [facility] RN Member Role: Primary Care Nurse Name: Adiel Echeverria MD Position: [facility] Renal MD Member Role: Lifetime Consulting Physician Address: [address] [facility] [address] [facility] [place] [address]- [place] Telecom: Name: Olu Romero RN Position: [facility] RN Member Role: Primary Care Nurse Name: Ed Villela Position: S RN Member Role: Primary Care Nurse Care Team Related Persons Name: JUAN LEE Insurance Providers Guarantor name: HAIM ROSA [facility] Information #: 1 Payer: [employer] H[employer] Member Number: [id number] Policy Number: NA Group Number: [id number] Health Plan Information #: 2 Payer: [employer] Member Number: [id number] Policy Number: NA Group Number: NA
--- OUTSIDE RECORDS SUMMARY | 2024-02-29 17:41 | XMS_ITS | Continuity of Care Document ---
Author Organization [facility] Address [address] [place] [address]- Care Team Providers Care Classification Inspector Name Role Phone Ino YI, Traci Primary Care Physici an [place] [facility] Date(s): 01/12/24 - 02/11/24 [facility] [address] [place] [address] Attending Physician: Carrie Rodriguez Admitting Physician: AdmtrCarrie Referring Physician: Admtr ArPriti Encounter Type: Triage Allergies, Adverse Reactions, Alerts [...] Given 1Admin Note: given on 12-30-09 at [facility] 2Admin Note: Pt states done at [employer] [facility] dosent Know exact date. 3Admin Note: vis sheet 10/30/08 given 4Admin Note: done at work [facility] not sure of date 2009 5Admin Note: Done at [facility] #3 08/22/09 6Admin Note: Done at [facility] #2 02/17/09 7Admin Note: Done at the work Connection at [facility] # Problem List Condition Confirmation Course [...] Active Obstructive sleep apnea Confirmed Active Old [place] (myocardial infarction) Confirmed Active Reflux esophagitis Confirmed [...] Team Personnel Name: Devon Parikh RN Position: [facility] RN Member Role: Primary Care Nurse Name: Noy Harkins RN Position: [facility] RN Member Role: Primary Care Nurse Name: Liliana Elam Position: [facility] Outreach Member Role: Lifetime Consulting Physician Name: Traci Mckinnon MD Position: [facility] Physician - Hospital Medicine Member Role: PCP Address: [address] [place] [address] [address] [place] [address]- [place] Telecom: Name: Van Bradford RN Position: [facility] RN Member Role: Primary Care Nurse Name: Adiel Echeverria MD Position: [facility] Renal MD Member Role: Lifetime Consulting Physician Address: [address] [facility] [address] [facility] [place] [address]- [place] Telecom: Name: Olu Romero RN Position: [facility] RN Member Role: Primary Care Nurse Name: Ed Villela Position: S RN Member Role: Primary Care Nurse Care Team Related Persons Name: JUAN LEE Insurance Providers Guarantor name: HAIM LEE [facility] Information #: 1 Payer: [facility] H61 Member Number: NA Policy Number: NA Group Number: NA
--- OUTSIDE RECORDS SUMMARY | 2024-02-29 17:41 | XMS_ITS | Continuity of Care Document ---
Author Organization [facility] [address] [place] [address] Phone [phone] Care Team Providers Care American History Teacher Name Role Phone James Obdulia SANDHU Care Team Information Drum Printer [phone] Rabia Nick M.D. Care Team Information Drum Printer [phone] Problems Active Problems Provider Date Coronary atherosclerosis Raman Camacho M.D. Onset: 05/13/2022 Chronic kidney disease Raman Camacho M.D. O nset: 05/13/2022 Adjust hearing aid settings Manjula Charles Onset: 05/13/2022 Essential hypertension Raman Camacho M.D. O nset: 05/13/2022 Hypercholesterolemia Raman Camacho M.D. Ons et: 05/13/2022 Obese class I Raman Camacho M.D. Onset: 0 05/13/2022 Obstructive sleep apnea syndrome Raman peterson M.D. Onset: 05/13/2022 Coronary artery bypass grafts x 3 Raman galindo M.D. Onset: 05/13/2022 Type 2 diabetes mellitus Raman Camacho M.D. Onset: 07/29/2022 Social History Type Date Description Comments Sex Unknown ETOH Use Occasionally consumes alcoho l Tobacco Use Start: Unknown End: Unknown Patient is a former smoker Allergies and adverse reactions Description No Known Drug Allergies Medications Active Medications SIG Qnty Indications Order ing Provider Date Metoprolol Zqtquxbw06jw Tablets take 1 tablet by mouth twice a day Unknown Sulfamethoxazole/Tr imethoprim RU036-538on Tablets take 1 tablet by mouth twice daily for 14 days 14tabs Lori Taylor MD T:Slim X2 3ML Laszehlkh9TT Cart Misc Rabia Nick M.D. Tfswlliojt57xw Tablets 1 by mouth every day 90tabs Unknown 000 Amphetamine-Dextroa cotrixhlpf81yw Tablets Rabia Nick M.D. Xtixscxjo6np/0.5ML Solution Pen-Inject 1 injection subcutaneously every week 12ml Unknown Fmzpgkzox9uo Tablets one daily as needed Rabia Nick M.D. Bbqmkbb19xp Tablets 1 by mouth every day 90tabs Unknown Insulin Koofjt108Mzvl/ML Solution use in pump 6ml Rabia Nick M.D. Rosuvastatin Mgttbys03cd Tablets 1 by mouth every day Unknown Vital Signs Date Vital Result Comment 05/13/2022 9:34am BP Systolic 152 mmHg BP Diastolic 70 mmHg Heart Rate 72 /min Height 70 inches 5'10 Weight 209.00 lb BMI (Body Mass Index) 30.0 kg/m2 Results Test Acquired Date Facility Test Result H/L Range [place] Laboratory test finding 05/13/2022 Inhouse Glucose Fingerstick 142 Hemoglobin A1c 8.3% Procedures Date Code Description Status 05/13/2022 61092 Glucose Monitoring Interpeta tion And Report Completed Medical Devices Description No Information Available Encounters Type Date Location Provider Dx Diagnosis Office Visit 05/13/2022 9:30a Main Office Raman Camacho M.D. E11.9 Type 2 diabetes mellitus without complications E78.5 Hyperlipidemia, unsp ecified I25.10 Athscl heart disease of [place] coronary artery w/o ang pctrs E11.40 Type 2 diabetes kiersten itus with diabetic neuropathy, unsp Assessments Date Code Description Provider 05/13/2022 E11.9 Type 2 diabetes mellitus without complications Raman Camacho M.D. 05/13/2022 E78.5 Hyperlipidemia Raman haskins M.D. 05/13/2022 I25.10 Coronary atherosclerosis Gladis Camacho M.D. 05/13/2022 E11.40 Diabetic peripheral neuropat hy Raman Camacho M.D. Plan of Treatment No Information Available Functional Status Description No Information Available Mental Status Description No Information Available Referrals Description No Information Available
== END 2024-02-23 10:58 | disposition home or self-care (01) ==
PROVIDERS: PCP Internal Medicine; Visit Provider Nurse Practitioner Adult Health
DX: E11.9 Type 2 diabetes mellitus without complications (principal)
CPT/HCPCS: 95251; 99214

== ENCOUNTER → 2024-02-23 10:30 | Outpatient (BNVA) | payer OTHER, SELFPAY | PROVIDERS: PCP Internal Medicine; Visit Provider Nurse Practitioner Adult Health | DX: E11.610 Type 2 diabetes mellitus with diabetic neuropathic arthropathy (principal); E11.621 Type 2 diabetes mellitus with foot ulcer; L97.529 Non-pressure chronic ulcer of other part of left foot with unspecified severity; Z96.41 Presence of insulin pump (external) (internal); Z79.4 Long term (current) use of insulin; Z89.421 Acquired absence of other right toe(s) | CPT/HCPCS: 82947 ==

== ENCOUNTER 2024-03-01 10:02 | Outpatient (AMB) | payer OTHER, SELFPAY ==
--- NOTE | 2024-03-01 10:43 | A.OFFVIS_ITS ---
Intake Intake Visit Reasons: DM Addresser Required: No Accompanied by: Self / Same As Patient Allergies No Known Allergies Allergy (Verified 01/05/24 16:33) HPI Comprehensive Diabetes Asmnt Most Recent Diabetes Results: No Data to Display [facility] Medical History Tubular adenoma of colon Screening for colorectal cancer Reflux esophagitis [place] (myocardial infarction) Obstructive sleep apnea Obesity due to excess calories Migraine LV dysfunction Hypercholesteremia HTN (hypertension) Hearing aid worn Diabetic foot ulcer CAD (coronary artery disease) Abdominal pain Osteomyelitis Diabetes mellitus Surgical History History of vasectomy Hx of colonoscopy S/P CABG x 3 Family History Father No problems noted. Mother No problems noted. Social History Alcohol intake: current Alcohol intake frequency: holidays/special occasions only Patient Tobacco Use Status: Never used Tobacco Assessment & Plan Assessment & Plan (1) Diabetes mellitus: Code(s): E11.9 - Type 2 diabetes mellitus without complications Plan: Patient presents for pump training for T-Total Boox X2 pump and CGM training today. The following topics were reviewed today: -Pump therapy basic concepts: Basal/bolus, insulin to carb ratio, correction factor, insulin on board -Device settings: Bluetooth/mobile connection (if applicable), correct date and time, sound volume -CGM settings CGM alerts and alarms ??? High Alert: 200 mg/dL ??? Low Alert: 80 mg/dL CGM data: Above Target: 48% At target:52% Below target:0% Patient's average glucose for the past 14 days 178 mg/dL TDD:50 units Set up patient's sleep schedule, instructed patient best practice is to change insulin infusion set every 72 hours, patient has been changing on average every 5 days. Discussed with patient the importance of manually bolusing when experiencing hyperglycemia, letting pump do micro boluses only gives you 60% of recommended bolus Demonstrated to patient how to change sound levels on alerts and alarms, how to correct and give boluses from T connect andres Encourage patient to manually bolus for hypoglycemia, bolus 15 minutes prior to meals, change insulin delivery set every 72 hours Patient is interested in transitioning to Dexcom G7 from Dexcom G6 sensor, message sent to provider to send new prescription for Dexcom G7 sensor Patient understands the basic concepts of pump therapy, how to give insulin for meals and snacks, how to troubleshoot for hyper and hypoglycemia. Setting verified by [facility] Basal rate(s) (units/hour) : 12 AM to 12 AM? 1.31 units / hr Bolus setting Insulin Carbohydrate Ratio (s) 12 AM to 12 AM? 1:8.5 Correction Factor / Sensitivity Factor 12 AM to 12 AM? 1:31 Active Insulin Time:? 5 hours Target(s): 12 AM to 12 AM? 110 mg/dL Patient will follow up with [facility] as instructed Patient will contact [facility] with questions or concerns, patient given IT number to support in any technical issues related to insulin pump Portions of this note were created using voice recognition software, please excuse any words or phrases that may have been misinterpreted. Medications: Discontinued blood-glucose sensor (Dexcom G6 Sensor device) Discontinued Reason: Doctor's Order As directed change every 10 days 9 ea 1RF Patient Instructions: Work on behavior changes discussed at today's visit Follow-up with patient educator in 6 weeks Coding Level of Care Code Est Pt Level 1 (57974) Diagnoses Diabetes mellitus E11.9
--- OUTSIDE RECORDS SUMMARY | 2024-03-02 | XMS_ITS | Data Portability ---
Author Organization [facility] Address [address] [place] [address] Assessment Encounter Date Assessment Date Assessment LastModified [...] Kenalog Injection completed Olivia Carvajal MD [address] [facility] [address], [place], [address], [facility] 06/30/2023 17:04:27 Imaging Results [...] Updated DateTime 06/30/2023 177.8 cm 29.1 kg/m2 66329.25 g JOLLY HOANG [place] - [facility] 06/30/2023 15:23:01 Social History None recorded. Functional Status None recorded. Mental Status None recorded. Family History Nothing Reported. Medical History No medical history recorded. Past Encounters Encounter ID Performer Location Encounter Start Date Encounter Closed Date Diagnosis/Indication Diagnosis SNOMED-CT Code Diagnosis ICD10 Code [id number] MD Juliet Vyas [address] [place] [address] 06/30/2023 14:38:02 07/26/2023 09:24:09 Trigger finger of right hand [id number] M65.341 Health Concerns Section Related Observation LastModified by Organization Detai ls LastModified Time None Recorded Concern Status LastModified by Organization Details LastModified Time None Recorded Advance Directives Directive None Recorded Payers Encounter Date Sequence Insurance Name Policy Number Policy Russ Covered Member ID Russ Member ID Guarantor Name 06/30/2023 1 [facility] [id number] Eran Wren [id number] Eran Wren Notes Date Note Type Note Provider Name and Address Organization Details Recorded Time 06/30/2023 text/html Patient is a pleasant 68-year-old sxsom-kvkb-qiicp ant male who has a prior history [...] good friends with Jolly. Olivia Carvajal MD [address] [place] [address] [address], [place], [address], [facility] 06/30/2023 17:05:43
--- OUTSIDE RECORDS SUMMARY | 2024-03-02 | XMS_ITS | Continuity of Care Document ---
Author Organization [facility] [address] [place] [address] Phone [phone] Care Team Providers Care Clinical Nurse Specialist Name Role Phone James Obdulia SANDHU Care Team Information Director Retail Brand Development [phone] Rabia Nick M.D. Care Team Information Director Retail Brand Development [phone] Problems Active Problems Provider Date Coronary atherosclerosis [...] Qnty Indications Order ing Provider Date Metoprolol Axovpdxs59bh Tablets take 1 tablet by mouth twice a day Unknown Sulfamethoxazole/Tr imethoprim NC465-320bp Tablets take 1 tablet by mouth twice daily for 14 days 14tabs Lori Taylor MD T:Slim X2 3ML Sybapakpy9XC Cart Misc Rabia Nick M.D. Woygqjcqoc24wo Tablets 1 by mouth every day 90tabs Unknown 000 Amphetamine-Dextroa aizaatplyk67iz Tablets Rabia Nick M.D. Xxkspjolo9qz/0.5ML Solution Pen-Inject 1 injection subcutaneously every week 12ml Unknown Jlwciilay3ie Tablets one daily as needed Rabia Nick M.D. Hpfmoaw68nj Tablets 1 by mouth every day 90tabs Unknown Insulin Iwxidw158Suys/ML Solution use in pump 6ml Rabia Nick M.D. Rosuvastatin Amuntuj03vb Tablets 1 by mouth every day Unknown [...] 8.3% Procedures Date Code Description Status 05/13/2022 91031 Glucose Monitoring Interpeta tion And Report Completed Medical Devices Description No Information Available Encounters Type Date Location Provider Dx Diagnosis Office Visit 05/13/2022 9:30a Main Office Raman Camacho M.D. E11.9 Type 2 diabetes mellitus without complications E78.5 Hyperlipidemia, unsp ecified I25.10 Athscl heart disease of [place] coronary artery w/o ang pctrs E11.40 Type [...]
== END 2024-03-01 10:49 | disposition home or self-care (01) ==
PROVIDERS: PCP Internal Medicine; Visit Provider Registered Nurse Diabetes Educator
DX: E11.9 Type 2 diabetes mellitus without complications (principal)

== ENCOUNTER → 2024-03-01 10:02 | Outpatient (BNVA) | payer OTHER, SELFPAY | PROVIDERS: PCP Internal Medicine; Visit Provider Registered Nurse Diabetes Educator | DX: E11.9 Type 2 diabetes mellitus without complications (principal); Z79.4 Long term (current) use of insulin; Z96.41 Presence of insulin pump (external) (internal); Z71.3 Dietary counseling and surveillance; Z46.81 Encounter for fitting and adjustment of insulin pump | CPT/HCPCS: 97802; 99211 ==

== ENCOUNTER → 2024-03-01 10:02 | Outpatient (AMB) | payer OTHER, SELFPAY ==
[2024-03-01 09:49] VITALS: BMI 28.4
--- NOTE | 2024-03-01 11:09 | A.OFFVIS_ITS ---
VS Expanded 03/01/24 09:49 Height 5 ft 10 in Weight 198 lb 2.3 oz BMI 28.4 Intake Visit Reasons: T2DM/Confirmed Allergies No Known Allergies Allergy (Verified 01/05/24 16:33) Nutrition Presentation Details: Pt presents for MNT for T2DM Pt is currently on Admelog via Tslim x2 insulin pump therapy with G7 sensor. Pt reports doing well, has questions regarding estimation of consumption of carbohydrates when eating out food frequency fruits: 2-3/d ve serving/d dairy 3-5 /day fish 0-1/wk starches> 25 /d fluids: water, juices, sodas etoh/smoking -- physical activity: daily life activities BS Monitoring Most Recent Diabetes Results: No Data to Display DGT-Mkhzbdi-Kw.Jeor Equation Height: 5 ft 10 in Weight: 198 lb Resting Metabolic Rate: 1688.74 Calculated Activity Level: Mild Activity Calories Needed to Maintain Weight: 2322.02 Diagnosis Nutrition problem #1: food nutri know defi As related to (etiology) #1: diagnosis As evidenced by (sign/symptom) #1: knowledge deficit of diet (needs review on estimation of carbs and relationship of fat to BG) PFSH Medical History Tubular adenoma of colon Screening for colorectal cancer Reflux esophagitis [place] (myocardial infarction) Obstructive sleep apnea Obesity due to excess calories Migraine LV dysfunction Hypercholesteremia HTN (hypertension) Hearing aid worn Diabetic foot ulcer CAD (coronary artery disease) Abdominal pain Osteomyelitis Diabetes mellitus Surgical History History of vasectomy Hx of colonoscopy S/P CABG x 3 Family History Father No problems noted. Mother No problems noted. Social History Alcohol intake: current Alcohol intake frequency: holidays/special occasions only Patient Tobacco Use Status: Never used Tobacco Assessment & Plan Assessment & Plan (1) Diabetes mellitus: Code(s): E11.9 - Type 2 diabetes mellitus without complications Category: Medical Plan: Wt: 90 Kg ( 03/14 ) Est kcal needs as per MSJ: 2300 (40% carb, 30% protein/fat) Est fluid needs as per 25-30 ml/d: 2700 Est prot per day as per 1 g/kg bw: 90 Recommend fiber intake : 8-10 g per day and gradually increase to 25-28 g per day for women and 35-38 g for men or as tolerated Recommend sodium intake per day : less than 2300 mg Educated patient on: ( R = reviewed V = verbalizes understanding N/R = needs review N/A = not applicable * Food sources of carbohydrate, adequate serving sizes and its role in various health conditions: R V * Differences between complex carbohydrates a simple carbohydrates, role of fiber in diet: R V * Lean protein sources of foods: R V * Differences between types of fats and role in diet (mono on saturated fat fatty acids, saturated fatty acids, trans fats): R V N/R * Food sources of sodium in salt and healthy modifications for heart health in kidney health: R V R/V * Vitamins and minerals: R V N/R * Healthy plate method concept: R V * Physical activity: Benefits a precaution: R V N/R * Hypoglycemia protocol (rule of 15): R V N/R * Dietary prevention of Hyperglycemia: R Medications: Discontinued blood-glucose sensor (Dexcom G6 Sensor device) Discontinued Reason: Doctor's Order As directed change every 10 days 9 ea 1RF Patient Instructions: Choose lower fat food option when eating out (baked vs fried as example, removing batters, gravies/sauces on the side as example) Use list of foods and carbs to help you with estimation of carb intake Recommend 80 -100 g carb per meal , 3 meals/day following healthy plate method Coding Level of Care Code Nutr Indiv Intake (49906) Diagnoses Diabetes mellitus E11.9 Time Spent (min) 30
--- OUTSIDE RECORDS SUMMARY | 2024-03-02 | XMS_ITS | Continuity of Care Document ---
Author Organization [facility] [address] [place] [address] Phone [phone] Care Team Providers Care Patient Educator Name Role Phone James Obdulia SANDHU Care Team Information Business Center Attendant [phone] Rabia Nick M.D. Care Team Information Business Center Attendant [phone] Problems Active Problems Provider Date Coronary atherosclerosis [...] Qnty Indications Order ing Provider Date Metoprolol Kmhiwyuh59dg Tablets take 1 tablet by mouth twice a day Unknown Sulfamethoxazole/Tr imethoprim NT366-786di Tablets take 1 tablet by mouth twice daily for 14 days 14tabs Lori Taylor MD T:Slim X2 3ML Euxxlwmsd3KL Cart Misc Rabia Nick M.D. Yskbhgbxgb95ee Tablets 1 by mouth every day 90tabs Unknown 000 Amphetamine-Dextroa vzpdfxaavy57zx Tablets Rabia Nick M.D. Xyexaands9so/0.5ML Solution Pen-Inject 1 injection subcutaneously every week 12ml Unknown Vztcyfwor8pe Tablets one daily as needed Rabia Nick M.D. Iszpofj83gd Tablets 1 by mouth every day 90tabs Unknown Insulin Euzpad731Myby/ML Solution use in pump 6ml Rabia Nick M.D. Rosuvastatin Vyanpab94tb Tablets 1 by mouth every day Unknown [...] 8.3% Procedures Date Code Description Status 05/13/2022 00715 Glucose Monitoring Interpeta tion And Report Completed Medical Devices Description No Information Available Encounters Type Date Location Provider Dx Diagnosis Office Visit 05/13/2022 9:30a Main Office Raman Camacho M.D. E11.9 Type 2 diabetes mellitus without complications E78.5 Hyperlipidemia, unsp ecified I25.10 Athscl heart disease of [place] coronary artery w/o ang pctrs E11.40 Type [...]
[2024-03-06 09:56] VITALS: BMI 28.4
== END ==
PROVIDERS: PCP Internal Medicine; Visit Provider Dietitian, Registered
DX: E11.9 Type 2 diabetes mellitus without complications (principal)

== ENCOUNTER 2024-07-19 08:22 | Outpatient (AMB) | payer OTHER, SELFPAY ==
[2024-07-19 08:28] VITALS: BP 120/72; PULSE 81; O2SAT 96; BMI 28.7
--- NOTE | 2024-07-19 08:28 | A.OFFVIS_ITS ---
Vital Signs 07/19/24 08:28 Height 5 ft 10 in Weight 200 lb BMI 28.7 BP 120/72 Blood Pressure Location Rt brachial Position Sitting Pulse 81 Pulse Source Pulse Oximeter Pulse Oximetry (%) 96 Oxygen Delivery Method Room Air Intake Visit Reasons: T2DM Intake Note: Patient presents today for a follow-up on Type 2 Diabetes Mellitus/Insulin Pump: Last Diabetic eye exam was on: February, Eye Injections Last Podiatry exam was on: Does not see a Shingle Carrier Most recent HbA1c: 7.5%, 07/19/2024 Random Glucose- 96 mg/dL, Today Junior Net Developer Required: No Accompanied by: Self / Same As Patient Allergies No Known Allergies Allergy (Verified 07/19/24 08:29) HPI Comments Details: 69 YO male who is seen in f/u for T2DM on a Tandem t slim insulin pump. A1C 01/05/24 8.3%, previous A1C 7.3%. He was seen as an initial consult 01/05/2024 and he has been working on entering all of his carbohydrates into his pump additionally, his carb ratio was adjusted in January to give him more preprandial insulin. He is followed by wound clinic at [facility] for a foot ulcer which he reports is improving. He has been referred also to Dr. Sanchez. He has a Charcot foot. A1C today in the office:7.5%. Was diagnosed with osteomyelitis in March and had great toe and second toe right side amputation. Was on antibiotics. Followed by vascular. Was at [facility]. When he was in the hospital they were not giving him Lantus for the 1st 9 days and he was off his pump. He was seen by vascular last week and has follow up both vascular and Podiatry Initially diagnosed with T2DM 1998. Was initially started on treatment with metformin andl glyburide Current regimen: T slim X 2 insulin pump Lispro(admelog) Metformin 1000 mg b.i.d. Trulicity 3 mg weekly Farxiga 10 mg daily Dexcom average glucose:148 14 day continuous glucose monitor report reviewed Days with CGM data [80 ] % TIme in ranges: 6 % very high (above 250) 15 % high ?(181-250) 76 % in range ?(70-180] 3 % low (69-55) 0 % ?very low (below 54) [nterpretation: Last 2 weeks average is 148 prior to that it was 160. I suspect he is not entering in all of his carbs as he is entering in an only 65. He works as a pharmacist in during the daytime often has trouble entering his carbs prior to the meal. Pump Settings: Basal 12AM 1.13 units/hour Sensitivity 12 AM 31 Insulin to carb ratio 12 AM 8.5 BG target 12AM 110 mg/dL Reports low sugars none Treats lows with something sweet. Family history of T2DM in maternal grandfather Has eyes checked yearly, last eye exam: October 2023 sees retinal specialist Has retinopathy has amd Followed by Wound Care Clinic at [facility]: Has small foot ulcer on left foot great toe, has Charcot arthropathy has had 5 amputated right foot, partial amputation left toe previously was followed by Podiatry Now sees Dr. Sanchez. Sees regulalry + nephropathy, on LUIS. eGFR 55 03/2022 Has HLD, on statin. Last LDL [] as measured on []. Labs not available today ordered Has CAD. Status post CABG x3 history of prior SC, LVD Sees cardiology at [facility] Has marginal sleep apnea does not use cpap He is followed by a guzzler builder at [facility] in a vascular specialist at [facility] Diet:eats healthy Weight:down 35 pounds per patient Exercise: none with exception at work on feet all day works as pharmacist Seen by Usha CHAUDHRY in February. ON LICENSE OF [facility] Medical History Tubular adenoma of colon Screening for colorectal cancer Reflux esophagitis Old SC (myocardial infarction) Obstructive sleep apnea Obesity due to excess calories Migraine LV dysfunction Hypercholesteremia HTN (hypertension) Hearing aid worn Diabetic foot ulcer CAD (coronary artery disease) Abdominal pain Osteomyelitis Diabetes mellitus Surgical History History of vasectomy Hx of colonoscopy S/P CABG x 3 Family History Father No problems noted. Mother No problems noted. Social History Alcohol intake: current Alcohol intake frequency: holidays/special occasions only Patient Tobacco Use Status: Never used Tobacco Physical Exam Vital Signs: Oxygen Delivery Method Room Air 07/19/24 08:28 Const Other: Absence of Cushingoid features. Absence of acromegalic features. Neck exam reveals nl size thyroid about 15 gms. No thyroid nodules palpable. Heart S1 S2, Reg R/R. No M/R G. Skin exam reveals absence of vitiligo or acanthosis nigricans. Visual exam of foot performed. No ulcerations or open lesions. fissuring between several toes left , no callouses. Charcot foot. Right foot all toes amputated. There is a small amount of purulent drainage was slight odor. Left foot 2nd nail bed removed. Results AMB Hemoglobin A1c AMB Hemoglobin A1c 7.5 % Last Edit by MAGNOLIA Ramey on 07/19/24 08:57 Assessment & Plan Assessment & Plan (1) Diabetes mellitus: Code(s): E11.9 - Type 2 diabetes mellitus without complications Category: Medical Plan 69-year-old type 2 diabetic with CAD followed by Cardiology, status post right great and 2nd toe amputation in March with osteomyelitis followed by both vascular and Dr. Sanchez, retinopathy and nephropathy. A1c today 7.5%. No pump setting changes were made today and he was asked to enter all carbs and to attempt to try to get those in 15-20 minutes before the meal so he is not chasing higher glucose. He was asked to contact vascular and to get in as soon as possible so that they may look at his wound. He has follow up with Podiatry. He was asked if he is hospitalized again to request an endocrinology consult inpatient. The patient had an opportunity to ask questions regarding treatment plan. The patient expressed understanding and agreement with the above treatment plan. The patient is aware they should contact our office by phone for worsening glucose readings or for any low blood sugars which may warrant a change in diabetes medication. Compliance is encouraged with medications and any followup testing/consults which may have been ordered. Orders: Orders Creatinine Urine Today E11.9 - Type 2 diabetes mellitus without complications Comprehensive Met. Panel Today E11.9 - Type 2 diabetes mellitus without complications Lipid Panel Today E11.9 - Type 2 diabetes mellitus without complications Microalbumin, Random (w Creat) Today E11.9 - Type 2 diabetes mellitus without complications AMB Hemoglobin A1c Today E11.9 - Type 2 diabetes mellitus without complications Medications: Discontinued levofloxacin Discontinued Reason: Doctor's Order 750 mg PO DAILY 30 days 30 tab-caps 1RF Patient Instructions: The patient was counseled to achieve a target A1C of 7% (154 avg). Fasting blood sugars should be 90-130 in the morning and less than 180 two hours after meals. Reviewed the relationship between poor diabetic control and the development of complications. Check your feet daily looking for any signs of infection, drainage, redness, ulceration and seek medical attention if this occurs. Break in shoes gradually and do not wear open-toed shoes or walk stocking footed or barefooted. Symptoms of DKA (diabetic ketoacidosis): early: frequent urination, dry mouth, fatigue, feeling ill, severe symptoms: ketones in the urine, abdominal pain, nausea, vomiting and weakness. It is important to hydrate with sugar free liquids every 15-30 minutes and bring the sugars down to normal levels. If you are moderate or severe with ketones or unable to bring glucose to less than 200, go to the emergency room. Troubleshooting after starting new pod or inserting new insulin set: Occlusion, adhesive tape sensitivity, redness Check BG 2 hours after site change Safety information: Importance of a backup plan, for manual injections, proper prescriptions and emergency supplies ketone strips, and rules for testing for ketones DKA handout reviewed. Patient does have ketone test strips. Coding Level of Care Code Est Pt Level 4 (94526) Complex EM visit Add On G2211 Diagnoses Diabetes mellitus E11.9 Time Spent (min) 30 Comment Reviewing labs/provider notes, glucose sensor/pump reports, face to face, chart doc
--- OUTSIDE RECORDS SUMMARY | 2024-07-19 08:36 | XMS_ITS | Continuity of Care Document ---
Author Organization [facility] [address] [place] [address] Phone [phone] Care Team Providers Care Hostler Helper Name Role Phone James Obdulia SANDHU Care Team Information Residential Sales Associate [phone] Rabia Nick M.D. Care Team Information Residential Sales Associate [phone] Problems Active Problems Provider Date Coronary atherosclerosis [...] Qnty Indications Order ing Provider Date Metoprolol [id number] Tablets take 1 tablet by mouth twice a day Unknown Sulfamethoxazole/Tr imethoprim [id number] Tablets take 1 tablet by mouth twice daily for 14 days 14tabs Lori Taylor MD T:Slim X2 3ML [id number] Cart Misc Rabia Nick M.D. Cxjqyhbdly75bq Tablets 1 by mouth every day 90tabs Unknown 000 Amphetamine-Dextroa spbwxputhg60mf Tablets Rabia Nick M.D. Wqhduwnih2hz/0.5ML Solution Pen-Inject 1 injection subcutaneously every week 12ml Unknown Kjioxjfjf8yt Tablets one daily as needed Rabia Nick M.D. Qohmmbf64ng Tablets 1 by mouth every day 90tabs Unknown Insulin Jhtgzn165Qwba/ML Solution use in pump 6ml Rabia Nick M.D. Rosuvastatin Eexlopu45uz Tablets 1 by mouth every day Unknown Vital Signs Date Vital Result Comment 05/13/2022 9:34am BP Systolic 152 mmHg BP Diastolic 70 mmHg Heart Rate 72 /min Height 70 inches 5'10 Weight 209.00 lb BMI (Body Mass Index) 30.0 kg/m2 Results Test Acquired Date Facility Test Result H/L Range N ote Glucose Fingerstick 05/13/2022 Inhouse Glucose Fingerstick 142 Hemoglobin A1c 05/13/2022 Inhouse Hemoglobin A1c 8.3% Procedures Date Code Description Status 05/13/2022 51022 Glucose Monitoring Interpeta tion And Report Completed Medical Devices Description No Information Available Encounters Type Date Location Provider Dx Diagnosis Office Visit 05/13/2022 9:30a Main Office Raman Camacho M.D. E11.9 Type 2 diabetes mellitus without complications E78.5 Hyperlipidemia, unsp ecified I25.10 [facility] heart disease [place] coronary artery w/o ang pctrs E11.40 Type [...]
--- OUTSIDE RECORDS SUMMARY | 2024-07-19 08:36 | XMS_ITS | Clinical Summary ---
Author Organization 175 [facility] Address [address] [place] [address] Phone Care Team Providers Care Starch Crab Name Role Phone Traci Mckinnon MD Primary Care Provide r Allergies Active Allergy Reactions Criticality Noted Date Comments Sulfamethoxazole-Trimethop rim Other 06/15/2024 Sts when takes penis gets red and itchy Medications aspirin 81 mg EC tablet Take 1 tablet (81 mg total) by mouth 1 (one) time each day. Active glucose blood (Easy Touch Test Strip) test strip 1 Strip by Does not apply route 4 times daily. 10/31/19 16 Active insulin glargine (LANTUS SoloStar) 100 unit/mL (3 mL) injection pen 25 Units 1 (one) time each day if needed (hyperglycemia or pump failure). 05/04/19 20 Active insulin lispro (HumaLOG KwikPen Insulin) 200 unit/mL (3 mL) CONCENTRATED injection pen 05/04/19 20 Active pen needle, diabetic 31 gauge x 3/16 needle Insulin Pen Needle (EASY TOUCH PEN NEEDLES) 31G X 5 MM Misc Use 4x a day w/ insulin 12/06/19 19 Active insulin syringe-needle U-100 0.5 mL 30 gauge x 1/2 syringe Insulin Syringe-Needle U-100 (B-D INS SYR ULTRAFINE .5CC/30G) 30G X 1/2 0.5 ML MISC 1 Syringe by Does not apply route daily. 10/05/19 14 Active metFORMIN (GLUCOPHAGE) 1,000 mg tablet Take 1 tablet (1,000 mg total) by mouth 2 (two) times a day with meals. 06/19/19 21 Active rosuvastatin (CRESTOR) 40 mg tablet Take 1 tablet (40 mg total) by mouth 1 (one) time each day. 02/07/20 19 Active sildenafiL (VIAGRA) 100 mg tablet 1 tablet as needed 30-60 minutes before intercourse. Max is 100mg in 24 hours. 05/04/19 Active metoprolol tartrate (LOPRESSOR) 25 mg tablet Take 1 tablet (25 mg total) by mouth 2 (two) times a day. 60 each 04/19/19 Active oxyCODONE (ROXICODONE) 5 mg immediate release tablet Take 1 tablet (5 mg total) by mouth every 6 (six) hours if needed for severe pain. Take 1/2 tablet(2.5 mg total) by mouth every 6 hours if needed for moderate pain Max Daily Amount: 20 mg 15 tablet 04/19/19 Active Additional Information Patient not taking.Reported on 06/15/2024 polyethylene glycol (Golytely) 236-22.74-6.74 -5.86 gram solution Take 4L by mouth once for one dose. May substitue any PEG. Starting at 6PM the night before your procedure drink 1 8oz glasses at your own pace until you complete half of the gallon. Finish 2nd half of the gallon 5 hours before your procedure. 4000 mL 05/17/19 Active bisacodyL (DULCOLAX) 5 mg EC tablet Take 2 tablets by mouth right before beginning bowel prep. See instructions provided by the office 2 tablet 05/17/19 Active Additional Information Patient not taking.Reported on 06/15/2024 insulin lispro (HumaLOG) 100 UNIT/ML patient supplied pump 1 EA by continuous sub-Q infusn (via wearable injector) route continuously. Active dapagliflozin propanediol (Farxiga) 10 mg tablet Take 1 tablet (10 mg total) by mouth 1 (one) time each day. Active NIFEdipine XL (PROCARDIA XL) 60 mg 24 hr tablet Take 2 tablets (120 mg total) by mouth 1 (one) time each day before breakfast. Do not crush, chew, or split. Active amphetamine-dext roamphetamine XR (ADDERALL XR) 30 mg 24 hr capsule Take 1 capsule (30 mg total) by mouth 2 (two) times a day if needed. Do not crush or chew. Active famotidine (PEPCID) 20 mg tablet Take 1 tablet (20 mg total) by mouth 1 (one) time each day if needed for heartburn. Active diphenhydrAMINE (BENADRYL) 25 mg capsule Take 1 capsule (25 mg total) by mouth every 6 (six) hours if needed for allergies. Active lisinopril (PRINIVIL,ZESTRI L) 40 mg tablet Take 1 tablet (40 mg total) by mouth 1 (one) time each day. Active amoxicillin-clav ulanate (AUGMENTIN) 875-125 mg per tablet Take 1 tablet by mouth 2 (two) times a day for 7 days. 14 each 06/20/19 25 025 Active Problems Patient Care Coordination No te Formatting of this note migh t be different from the original. No accepting VNA services, Option care for IV abx. Problem Noted Date Diagnosed Date Diabetic foot infection ([facility] V24, [facility] V2 8) 06/15/2024 Osteomyelitis ([facility] V24, [facility] V28) 025 Osteomyelitis of great toe o f right foot ([facility] V24, [facility] V28) 04/10/2024 Type 2 diabetes mellitus wit h diabetic neuropathy, with long-term current use of insulin ([facility] V24, [facility] V28) 01/27/2024 CAD (coronary artery disease) 03/01/2017 Overview (01/27/2024): CABG 2014 Obesity (BMI 30.0-34.9) 03/01/2017 Diabetic ulcer of left fifth toe ([facility] V24, [facility] V28) 02/16/2017 Osteomyelitis of toe of left foot ([facility] V24, [facility] V28) 12/14/2016 Old RI (myocardial infarction) 10/05/2014 Overview (01/27/2024): nstemi Type II diabetes mellitus wi th renal manifestations ([facility] V24, [facility] V28) 11/26/2011 Hyperlipidemia 04/02/2011 Hypertension 04/02/2011 Encounters Date Type Department Care Team Description 07/13/2024 8:30 AM EDT Office Visit Vascular Surgery - [address] [phone] Abimbola Zacarias PA Amputation of left great toe ([facility] V24) (Primary Dx); History of transmetatarsal amputation of right foot ([facility] V24, [facility] V28); Skin ulcer of second toe of left foot with fat layer exposed ([facility] V24, [facility] V28) 06/21/2024 Telephone Vascular Surgery [address] [phone] Otto Trejo MD Provider Call Back; Wound Care 06/16/2024 11:05 AM EDT - 06/16/2024 12:05 PM EDT Surgery [facility] OR [address] [place] [phone] Otto Trejo MD RIGHT 2ND & 3RD TOE AMPUTATION 06/16/2024 10:32 AM EDT Anesthesia Event [facility] OR [address] [place] [phone] Richardson Chandra MD Pierce, Trudy A, CRNA 06/15/2024 3:18 PM EDT - 06/19/2024 6:01 PM EDT Hospital Encounter [facility] [address] [place] [phone] Guido Arce MD Flores, Carlos M, MD Japaridze, Anna, MD Kela, Kashyap Devendrabhai, MD Alam, Aroosa, MD Diabetic foot infection ([facility] V24, [facility] V28) (Primary Dx); Gangrene ([facility] V24, [facility] V28) Discharge Disposition: Home or Self Care 06/15/2024 1:00 PM EDT Office Visit Vascular Surgery [address] [phone] Abimbola Zacarias PA Diabetic foot infection ([facility] V24, [facility] V28) (Primary Dx); Other acute osteomyelitis of right foot ([facility] V24, [facility] V28) 05/31/2024 1:14 PM EDT Anesthesia Event [facility] [address] [place] [phone] Shahzad Wills MD 05/31/2024 12:20 PM EDT - 05/31/2024 11:59 PM EDT Hospital Encounter [facility] [address] [place] [phone] Katrina Dewitt MD Steele, Matthew G, CRNA Chang, Daniel J, MD Chronic diarrhea Discharge Disposition: Home or Self Care 05/15/2024 Billing Patient Not Present Vascular Surgery [facility] [address] [facility] [address] [place] [phone] Otto Trejo MD Type 2 diabetes mellitus with diabetic neuropathy, unspecified whether jail insulin use ([facility] V24, [facility] V28) (Primary Dx); Type 2 diabetes mellitus with foot ulcer, unspecified whether jail insulin use ([facility] V24, [facility] V28); Acquired absence of right great toe ([facility] V24); Other acute osteomyelitis, other site ([facility] V24, [facility] V28); Athscl heart disease of [place] coronary artery w/o ang pctrs; Obstructive sleep apnea (adult) (pediatric) 05/11/2024 8:30 AM EST Office Visit Vascular Surgery - [place] [address] [facility] [address] [place] [phone] Teresa Vazquez MD Osteomyelitis of great toe of right foot ([facility] V24, [facility] V28) (Primary Dx) 05/10/2024 4:00 PM EST Office Visit Infectious Disease - [place] [address] [facility] [address] [place] [phone] Pennie Barksdale MD Diabetic foot infection ([facility] V24, [facility] V28) (Primary Dx); Other acute osteomyelitis of foot, unspecified laterality ([facility] V24, [facility] V28) 05/05/2024 Telephone Vascular Surgery - [place] [address] [facility] [address] [place] [phone] Otto Trejo MD Forms/questionnaires 04/26/2024 [place] V[facility] Surgery - [place] [address] [facility] [address] [place] [phone] Teresa Vazquez MD Letter for School/Work 04/25/2024 [place] Vascular Surgery [facility] [address] [facility] [address] [place] [phone] Otto Trejo MD Return to Work from Last 3 Months Immunizations Name Administration Dates Next Due Influenza trivalent, with pr eservative (Fluzone; Afluria) 6mo and older 01/14/2017,03/28/2013,12/19/2011 Surgical History Surgery Date Site/Laterality Comments APPENDECTOMY 1971 PROCEDURE: HISTORICAL APPENDECTOMY BACK SURGERY 1990 PROCEDURE: HISTORICAL BACK SURGERY; COMMENT: L4-5 fusion CARDIAC SURGERY PROCEDURE:CARDIAC SURGERY;COMMENT:double bypass COLONOSCOPY ESOPHAGOGASTRODUODENOSCOPY Medical History Medical History Date Comments Osteomyelitis of toe of left foot ([facility] V24, [facility] V28) 12/14/2016 DX:Osteomyelitis of toe of left foot ([facility]) Diabetic ulcer of left fifth toe ([facility] V24, [facility] V28) 02/16/2017 DX:Diabetic ulcer of left f ifth toe ([facility]) Type 2 diabetes mellitus wit h diabetic neuropathy, with long-term current use of insulin ([facility] V24, [facility] V28) 02/22/2017 DX:Type 2 diabet es mellitus with diabetic neuropathy, with long-term current use of insulin ([facility]) Diabetes mellitus ([facility] V 24, [facility] V28) DX:Diabetes mellitus ([facility]) Hypertension DX:Hypertension GERD (gastroesophageal reflux disease) Chronic kidney disease Family History Medical History Relation Name Comments Heart attack Father Lung cancer Mother Relation Name Status Comments Father Mother Social History Tobacco Use Types Packs/Day Years Used Date Smoking Tobacco: Former Cigarettes Q uit: 03/22/1982 Smokeless Tobacco: Never Alcohol Use Standard Drinks/Week Comments Yes 0 (1 standard drink = 0.6 oz pur e alcohol) Interpersonal Safety Answer Date Record ed Physical Abuse 05/31/2024 Verbal Abuse 05/31/2024 Sex and Gender Information Value Date Recorded Sex Assigned at Male 04/10/2024 8:57 PM EST Legal Sex Male 9:56 AM EST Gender Identity Male 04/10/2024 8:57 PM EST Sexual Orientation Straight 04/10/2024 8: 57 PM EST Obstetrics History Last Filed Vital Signs Vital Sign Reading Time Taken Comments Blood Pressure 123/65 07/13/2024 8:23 AM EDT Pulse 74 07/13/2024 8:23 AM EDT Temperature 36.6 ??C (97.9 ??F) 06/19/2024 7:24 AM ED T Respiratory Rate 18 06/19/2024 7:24 AM EDT Oxygen Saturation 96% 06/19/2024 7:24 AM EDT Inhaled Oxygen Concentration - - Weight 100 kg (220 lb 6.4 oz) 07/13/2024 8:23 AM EDT Height 177.8 cm (5' 10 ) 07/13/2024 8:23 AM EDT Body Mass Index 31.62 07/13/2024 8:23 AM EDT Plan of Treatment Health Maintenance Due Date Last Done Comments Diabetes: Annual Foot Exam 06/11/1967 Diabetes: Annual Retina Eye Exam 06/11/1967 Zoster Vaccines (1 of 2) 06/11/2007 Hepatitis B Vaccines (2 of 3 - 19+ 3-dose series) 10/17/2009 09/19/2009 Pneumococcal Vaccine: 50+ Years (2 of 2 - PCV) 09/05/2015 09/04/2014, 05/19/2007 RSV Immunization Adult Patients (1 - Risk 60-74 years 1-dose series) 2017 COVID-19 Vaccine (2 - Moderna risk series) 03/21/2021 02/21/2021 Abdominal Aortic Aneurysm (AAA) Screen 01/26/2024 Cholesterol Screening (Lipid Panel) 01/26/2024 11/30/2018 Colorectal Cancer Screening: Stool Based Tests (FOBT/FIT) 01/26/2024 Depression Screening 01/26/2024 Social Influencers of Health Screening 01/26/2024 Influenza Vaccine (Season Ended) 2024 03/26/2021, 01/14/2017, 03/28/2013, Additional history exists Diabetes: Blood Sugar Control Test (HGBA1C) 12/16/2024 06/15/2024, 11/18/2022, 11/27/2020, Additional history exists Diabetes: Annual Urine Albumin-Creatinine Ratio (uACR) 03/02/2025 03/02/2024, 11/27/2020, 11/30/2018 Diabetes: Annual GFR (Glomerular Filtration Rate) 06/19/2025 06/19/2024, 06/18/2024, 06/16/2024, Additional history exists Falls Risk Assessment 06/19/2025 06/19/2024 Hypertension/CHF/CAD Annual BMP Blood Test 06/19/2025 06/19/2024, 06/18/2024, 06/16/2024, Additional history exists DTaP,Tdap,and Td Vaccines (3 - Td or Tdap) 12/16/2028 12/16/2018, 05/08/2000 Hepatitis C Screening Completed 12/16/2018, 017 Colorectal Cancer Screening: Colonoscopy Discontinued 05/31/2024 HIB Vaccines Aged Out No longer eligi ble based on patient's age to complete this topic HPV Vaccines Aged Out No longer eligi ble based on patient's age to complete this topic Hepatitis A Vaccines Aged Out No long er eligible based on patient's age to complete this topic IPV Vaccines Aged Out No longer eligi ble based on patient's age to complete this topic MMR Vaccines Aged Out No longer eligi ble based on patient's age to complete this topic Meningococcal ACWY Vaccine Aged Out N o longer eligible based on patient's age to complete this topic Meningococcal B Vaccine Aged Out No l onger eligible based on patient's age to complete this topic RSV Immunization Patients Under 20 months Aged Out No longer eligible based on patient's age to complete this topic Varicella Vaccines Aged Out No longer eligible based on patient's age to complete this topic Procedures Procedure Name Priority Date/Time Associated Diagnosis Comments POCT GLUCOSE BLOOD Routine 06/19/2024 4: 07 PM EDT POCT GLUCOSE BLOOD Routine 06/19/2024 11 :16 AM EDT POCT GLUCOSE BLOOD Routine 06/19/2024 8: 00 AM EDT CBC WITH AUTO DIFFERENTIAL Routine 06/19/2024 6:31 AM EDT CBC AND DIFFERENTIAL Routine 06/19/2024 6:31 AM EDT BASIC METABOLIC PANEL Routine 06/19/2024 6:31 AM EDT POCT GLUCOSE BLOOD Routine 06/18/2024 4: 45 PM EDT MRSA PCR Routine 06/18/2024 12:20 PM EDT POCT GLUCOSE BLOOD Routine 06/18/2024 10 :58 AM EDT VANCOMYCIN, TROUGH Timed 06/18/2024 8: 23 AM EDT CBC WITH AUTO DIFFERENTIAL Routine 06/18/2024 8:23 AM EDT BASIC METABOLIC PANEL Routine 06/18/2024 8:23 AM EDT CBC AND DIFFERENTIAL Routine 06/18/2024 8:23 AM EDT POCT GLUCOSE BLOOD Routine 06/18/2024 8: 09 AM EDT POCT GLUCOSE BLOOD Routine 06/17/2024 3: 20 PM EDT POCT GLUCOSE BLOOD Routine 06/17/2024 11 :15 AM EDT POCT GLUCOSE BLOOD Routine 06/17/2024 8: 19 AM EDT VANCOMYCIN, TROUGH Timed 06/17/2024 4: 36 AM EDT POCT GLUCOSE BLOOD Routine 06/16/2024 9: 06 PM EDT POCT GLUCOSE BLOOD Routine 06/16/2024 5: 05 PM EDT POCT GLUCOSE BLOOD Routine 06/16/2024 1: 54 PM EDT CULTURE BONE Routine 06/16/2024 11:07 AM EDT Gangrene ([facility] V24, [facility] V28) CULTURE BONE Routine 06/16/2024 11:04 AM EDT Gangrene ([facility] V24, [facility] V28) TISSUE EXAM Routine 06/16/2024 11:00 AM EDT Gangrene ([facility] V24, [facility] V28) AMPUTATION TOE 06/16/2024 10:31 AM EDT POCT GLUCOSE BLOOD Routine 06/16/2024 8: 14 AM EDT CBC WITH AUTO DIFFERENTIAL Routine 06/16/2024 6:40 AM EDT CBC AND DIFFERENTIAL Routine 06/16/2024 6:40 AM EDT MAGNESIUM Routine 06/16/2024 6:40 AM EDT BASIC METABOLIC PANEL Routine 06/16/2024 6:40 AM EDT POCT GLUCOSE BLOOD Routine 06/15/2024 8: 29 PM EDT CULTURE BLOOD STAT 06/15/2024 4:35 PM EDT CULTURE BLOOD STAT 06/15/2024 4:30 PM EDT XR FOOT 3+ VIEWS RIGHT STAT 06/15/2024 4:14 PM EDT HEMOGLOBIN A1C Add-On 06/15/2024 2:46 PM EDT CBC WITH AUTO DIFFERENTIAL STAT 06/15/2024 2:46 PM EDT LACTATE STAT 06/15/2024 2:46 PM EDT BASIC METABOLIC PANEL STAT 06/15/2024 2:46 PM EDT CBC AND DIFFERENTIAL STAT 06/15/2024 2:46 PM EDT CULTURE BLOOD STAT 06/15/2024 2:46 PM EDT COLONOSCOPY Routine 05/31/2024 1:33 PM EDT Chronic diarrhea HM URINE ALBUMIN CREATININE RATIO Routine 11/30/2018 LIPID PANEL Routine 11/30/2018 HM HEPATITIS C SCREENING Routine 10/19/2016 from Last 3 Months or Most Recently Relevant to Health Maintenance Results * (ABNORMAL) POCT Glucose, blood (06/19/2024 4:07 PM EDT) Only the most recent of14 resultswithin the time period is included. Glucose POCT 309(H) 70 - 100 mg/dL 06/19/2024 4:08 PM EDT [facility] Blood Capillary blood specimen / Unknown 06/19/2024 4:07 PM EDT 06/19/2024 4:09 PM EDT Miah Brennan MD LAB POINT OF CARE TE ST DOCKED DEVICE UNSOLICITED RESULTS Final Result [facility] [address] [place] [address], [place] [phone] * (ABNORMAL) CBC auto differential (06/19/2024 6:31 AM EDT) Only the most recent of4 resultswithin the time period is included. WBC 8.6 4.8 - 10.8 K/mcL LAB HEMETOLOGY METHOD 06/19/2024 6:54 AM EDT [facility] RBC 4.00(L) 4.50 - 5.50 M/mcL LAB HEMETOLOGY METHOD 06/19/2024 6:54 AM EDT [facility] Hemoglobin 11.3(L) 13.5 - 17.5 g/dL LAB HEMETOLOGY METHOD 06/19/2024 6:54 AM T [facility] Hematocrit 35.4(L) 42.0 - 54.0 % LAB HEMETOLOGY METHOD 06/19/2024 6:54 AM [facility] MCV 89.2 79.0 - 98.0 FL LAB HEMETOLOGY METHOD 06/19/2024 6:54 AM EDT [facility] MCH 28.5 27.0 - 32.0 pcg LAB HEMETOLOGY METHOD 06/19/2024 6:54 AM [facility] MCHC 31.9(L) 32.0 - 37.0 g/dL LAB HEMETOLOGY METHOD 06/19/2024 6:54 AM [facility] RDW 12.3 11.0 - 15.0 % LAB HEMETOLOGY METHOD 06/19/2024 6:54 AM [facility] Platelets 364 130 - 400 K/mcL LAB HEMETOLOGY METHOD 06/19/2024 6:54 AM [facility] MPV 9.6 7.0 - 11.0 FL LAB HEMETOLOGY METHOD 06/19/2024 6:54 AM [facility] NRBC 0.0 <1.0 % LAB HEMETOLOGY METHOD 06/19/2024 6:54 AM [facility] NRBC Absolute 0.00 <0.10 K/mcL LAB HEMETOLOGY METHOD 06/19/2024 6:54 AM [facility] Neutrophils Relative 57.7 % LAB HEMETOLOGY METHOD 06/19/2024 6:54 AM [facility] Lymphocytes Relative 23.9 % LAB HEMETOLOGY METHOD 06/19/2024 6:54 AM [facility] Monocytes Relative 7.0 % LAB HEMETOLOGY METHOD 06/19/2024 6:54 AM EDT [facility] Eosinophils Relative 9.8 % LAB HEMETOLOGY METHOD 06/19/2024 6:54 AM EDT [facility] Basophils Relative 0.9 % LAB HEMETOLOGY METHOD 06/19/2024 6:54 AM EDT [facility] Immature Granulocytes Relative 0.7 % LAB HEMETOLOGY METHOD 06/19/2024 6:54 AM EDT [facility] Neutrophils Absolute 4.98 1.50 - 7.00 K/mcL LAB HEMETOLOGY METHOD 06/19/2024 6:54 AM EDT [facility] Lymphocytes Absolute 2.06 1.00 - 5.00 K/mcL LAB HEMETOLOGY METHOD 06/19/2024 6:54 AM EDT [facility] Monocytes Absolute 0.60 0.20 - 1.00 K/mcL LAB HEMETOLOGY METHOD 06/19/2024 6:54 AM EDT [facility] Eosinophils Absolute 0.85(H) 0.00 - 0.50 K/mcL LAB HEMETOLOGY METHOD 06/19/2024 6:54 AM EDT [facility] Basophils Absolute 0.08 0.00 - 0.20 K/mcL LAB HEMETOLOGY METHOD 06/19/2024 6:54 AM EDT [facility] Immature Granulocytes Absolute 0.06(H) 0.00 - 0.03 K/mcL LAB HEMETOLOGY METHOD 06/19/2024 6:54 AM EDT [facility] Blood Venous blood specimen / Unknown Venipuncture / Unknown 06/19/2024 6:31 AM EDT 06/19/2024 6:40 AM EDT us Oksana Thacker MD LAB BLOOD ORDERABLES Final Res ult [facility] [address] [place] [address], [place] [phone] * (ABNORMAL) Basic metabolic panel (06/19/2024 6:31 AM EDT) Only the most recent of4 resultswithin the time period is included. Sodium 135 133 - 145 mmol/L LAB CHEMISTRY METHOD 06/19/2024 7:31 AM [facility] Potassium 4.0 3.5 - 5.5 mmol/L LAB CHEMISTRY METHOD 06/19/2024 7:31 AM [facility] Chloride 103 96 - 110 mmol/L LAB CHEMISTRY METHOD 06/19/2024 7:31 AM [facility] CO2 27 21 - 32 mmol/L LAB CHEMISTRY METHOD 06/19/2024 7:31 AM [facility] Anion Gap 5 3 - 11 LAB CHEMISTRY METHOD 06/19/2024 7:31 AM [facility] Glucose 190(H) 70 - 100 mg/dL LAB CHEMISTRY METHOD 06/19/2024 7:31 AM [facility] BUN 19 5 - 25 mg/dL LAB CHEMISTRY METHOD 06/19/2024 7:31 AM [facility] Creatinine 1.24 0.70 - 1.30 mg/dL LAB CHEMISTRY METHOD 06/19/2024 7:31 AM [facility] eGFR 64 >=60 mL/min/1. 73m2 LAB CHEMISTRY METHOD 06/19/2024 7:31 AM [facility] Comment:Calculation based on the??Chronic Kidney Disease Epidemiology Collaboration (CKD-EPI) equation refit??without adjustment for race. BUN/Creatinine Ratio 15.3 LAB CHEMISTRY METHOD 06/19/2024 7:31 AM [facility] Calcium 8.5 8.5 - 10.5 mg/dL LAB CHEMISTRY METHOD 06/19/2024 7:31 AM [facility] Blood Venous blood specimen / Unknown Venipuncture / Unknown 06/19/2024 6:31 AM EDT 06/19/2024 6:40 AM EDT Oksana Thacker MD LAB BLOOD ORDERABLES Final Res ult Performing Organization Address [facility]/ZIP Co de Phone Number [facility] [address] [place] [address], * MRSA molecular study (06/18/2024 12:20 PM EDT) [facility] MRSA Screen PCR Not Detected Not Detected LAB MICROBIOLOGY METHOD 06/18/2024 1:39 PM EDT [facility] Swab Both anterior nares / Unknown Non-blood Collection / Unknown 06/18/2024 12:20 PM EDT 06/18/2024 12:27 PM EDT Oksana Thacker MD LAB MICROBIOLOGY - GENERAL ORD ERABLES Final Result Performing Organization Address [facility] de Phone Number [facility] [address] [place] [address], [place] [phone] * Vancomycin, trough Please draw prior to 0900 dose (06/18/2024 8:23 AM EDT) Only the most recent of2 resultswithin the time period is included. [facility] [facility] Vancom[facility] Trough 18.7 10.0 - 20.0 mcg/mL LAB CHEMISTRY METHOD 06/18/2024 9:10 AM EDT [facility] Blood Venous blood specimen / Unknown Venipuncture / Unknown 06/18/2024 8:23 AM EDT 06/18/2024 8:29 AM EDT Shayla Bledsoe NP LAB BLOOD ORDERABLES Final Res ult Performing Organization Address [facility]/ZIP Co de Phone Number [facility] [address] [place] [address], [place] [phone] * Culture bone (06/16/2024 11:07 AM EDT) Only the most recent of2 resultswithin the time period is included. Culture, Bone No growth aerobically and anaerobically at 5 days. 06/21/2024 7:35 AM EDT [facility] Gram Stain Result No polymorphonuclear leukocytes, No epithelial cells, and No organisms noted 06/21/2024 7:35 AM EDT [facility] Bone Structure of right foot / Unknown 06/16/2024 11:07 AM EDT 06/16/2024 11:43 AM EDT us Otto Trejo MD LAB MICROBIOLOGY - [facility] XAVIER Final Result [facility] [address] [place] [address], * Tissue exam (06/16/2024 11:00 AM EDT) Final Diagnosis A. Second toe, right foot, amputation: - Gangrenous necrosis of skin and soft tissue associated with acute inflammation that extends to involve underlying bone (osteomyelitis). - Focal acute inflammation is present at the inked soft tissue margin. - The bony margin appears uninvolved by acute inflammation. B. Third toe, right foot, amputation: - Gangrenous necrosis of skin and soft tissue associated with acute inflammation that extends to involve underlying bone (osteomyelitis) distally. - The inked tissue edge is negative for acute inflammation. C. Second metatarsal margin, right foot, excision: - Bone and articular cartilage; no acute osteomyelitis identified. D. Third metatarsal margin, right foot, excision: - Bone and articular cartilage; no acute osteomyelitis identified. 5:11 PM EDT [facility] Gross Description A. Foot, Right, second toe: Labeled ID: 1, right foot backspace foot R . Received in formalin is a 5.2 x 2.8 x 2.6 cm lower extremity digit disarticulated at the metatarsophalangeal joint. The tip displays a 2.4 x 1.8 cm necrotic and gangrenous ulcerating lesion which involves the underlying bone and comes to 1 cm of the grossly viable soft tissue margin. The soft tissue margin is inked blue. The toenail is absent. Belt Sander Stone sections are submitted following decalcification and as follows: 1, tip with underlying bone, one piece 2, soft tissue and bone margin, one piece B. Foot, Right, third toe: Labeled ID: 2, right lena foot R . Received in formalin is a 4.4 x 2.6 x 2.2 cm lower extremity digit disarticulated at the metatarsal phalangeal joint. The tip displays a 1.7 x 0.9 cm ulcerating lesion, located 1.8 cm from the grossly viable soft tissue margin, and involving the underlying bone. The uninvolved skin is calderon-white and wrinkled. The toenail is absent. The margin is inked green. Belt Sander Stone sections are submitted into cassettes following decalcification and as follows: 1, tip with underlying bone, one piece 2, soft tissue and bone margin, one piece C. Foot, Right, second metatarsal margin: Labeled ID: 3 right lena foot R . Received in formalin is a 1.6 x 1.3 x 1 cm convex articular bone fragment. The cartilage covered articular surface is calderon-yellow, smooth and glistening. The trabecular bone is calderon-yellow and unremarkable. The specimen is quadrisected and entirely submitted in one cassette following decalcification, four pieces. D. Foot, Right, third metatarsal margin: Labeled ID: 4, right lena, foot R . Received in formalin is a 1.3 x 1 x 0.6 cm contact disrupted articular bone fragments. The cartilage covered are*nuclear surface is calderon-white, smooth and glistening. The trabecular bone is pink-yellow and unremarkable. The specimen is trisected and entirely submitted in one cassette following decalcification, three pieces. BESSIE 5 5:11 PM [facility] Disclaimer Unless otherwise specified, all tissue is 10% NB formalin fixed and paraffin embedded. 5 5:11 PM [facility] Tissue Structure of right foot / Unknown 06/16/2024 11:00 AM EDT 06/16/2024 12:28 PM EDT Tissue specimen (specimen) Structure of right foot / Unknown 06/16/2024 11:01 AM EDT 06/16/2024 12:28 PM EDT Specimen from bone (specimen) Structure of right foot / Unknown 06/16/2024 11:03 AM EDT 06/16/2024 12:28 PM EDT Specimen from bone (specimen) Structure of right foot / Unknown 06/16/2024 11:07 AM EDT 06/16/2024 12:28 PM EDT Otot Trejo MD LAB PATHOLOGY ORDERABLES Final Result [facility] [address] [place] [address], [place] [phone] * Magnesium (06/16/2024 6:40 AM EDT) Magnesium 2.1 1.9 - 2.6 mg/dL LAB CHEMISTRY METHOD 06/16/2024 7:56 AM EDT [facility] Blood Venous blood specimen / Unknown Venipuncture / Unknown 06/16/2024 6:40 AM EDT 06/16/2024 7:05 AM EDT Christofer Parker MD LAB BLOOD ORDERABLES Final Re sult [facility] [address] [place] [address], [place] [phone] * Culture blood (06/15/2024 4:35 PM EDT) Only the most recent of3 resultswithin the time period is included. Culture, Blood No growth at 5 days 06/20/2024 5:01 PM EDT [facility] Blood Venous blood specimen / Unknown Venipuncture / Unknown 06/15/2024 4:35 PM EDT 06/15/2024 4:48 PM EDT us Guido Arce MD LAB MICROBIOLOGY - GENERAL [facility] XAVIER Final Result [facility] [address] [place] [address], [place] [phone] * XR Foot 3+ Views Right (06/15/2024 4:14 PM EDT) Anatomical Region Laterality Modality Lower Extremities, Foot Right Radiogra phic Imaging 06/15/2024 5:25 PM EDT Impressions 06/15/2024 5:28 PM EDT Interval bony loss along the residual proximal aspect of the first metatarsal with adjacent new bone formation may represent interval postoperative change with apparent is not typical for acute osteomyelitis. Clinical is recommended with MRI as indicated. -------- FINAL REPORT -------- Dictated By: Kenneth Rich Dictated Date: 06/15/2024 17:25 ET Assigned Physician: Kenneth Rich Reviewed and Electronically Signed By: Kenneth Rich Signed Date: 06/15/2024 17:28 ET Workstation ID: [id number] Transcribed By: Self Edit Transcribed Date: 06/15/2024 17:25 ET Narrative 06/15/2024 5:28 PM EDT INDICATION: Foot pain FINDINGS: 3 views of the right foot were obtained. Compared to multiple prior studies most recent from April 14, 2024. Postoperative changes noted along the first, fourth and fifth toes. Interval further bone loss along the residual proximal aspect of the first metatarsal with adjacent new bone formation. No soft tissue gas are foreign body. Procedure Note Kenneth Rich MD - 06/15/2024 INDICATION: Foot pain FINDINGS: 3 views of the right foot were obtained. Compared to multipleprior studies most recent from April 14, 2024. Postoperative changes noted along the first, fourth and fifth toes.Interval further bone loss along the residual proximal aspect of the firstmetatarsal with adjacent new bone formation. No soft tissue gas are foreign body. IMPRESSION: Interval bony loss along the residual proximal aspect of the firstmetatarsal with adjacent new bone formation may represent intervalpostoperative change with apparent is not typical for acute osteomyelitis.Clinical is recommended with MRI as indicated. -------- FINAL REPORT -------- Dictated By: Kenneth Rich Dictated Date: 06/15/2024 17:25 ET Assigned Physician: Kenneth Rich Reviewed and Electronically Signed By: Kenneth Rich Signed Date: 06/15/2024 17:28 ET Workstation ID: [id number] Transcribed By: Self Edit Transcribed Date: 06/15/2024 17:25 ET Abdirahman Streeter DO IMG XR PROCEDURES Final Result * Lactate (06/15/2024 2:46 PM EDT) [facility] Lactate 1.5 0.4 - 2.0 mmol/L LAB CHEMISTRY METHOD 06/15/2024 3:51 PM EDT [facility] Blood Venous blood specimen / Unknown Venipuncture / Unknown 06/15/2024 2:46 PM EDT 06/15/2024 3:01 PM EDT Abdirahman Streeter DO LAB BLOOD ORDERABLES Final Res ult [facility] [address] [place] [address], [place] [phone] * (ABNORMAL) Hemoglobin A1c (06/15/2024 2:46 PM EDT) [facility] Hemoglobin A1C 7.2(H) <6.5 % LAB CHEMISTRY METHOD 06/15/2024 9:24 PM EDT [facility] Mean Bld Glu Estim. 160 mg/dL LAB CHEMISTRY METHOD 06/15/2024 9:24 PM EDT [facility] Blood Venous blood specimen / Unknown Venipuncture / Unknown 06/15/2024 2:46 PM EDT 06/15/2024 3:04 PM EDT us Shayla Bledsoe BAND TEACHER LAB BLOOD ORDERABLES Final Res ult [facility] [address] [place] [address], * COLONOSCOPY Anesthesia - MAC; [facility] ENDOSCOPY (05/31/2024 1:33 PM EDT) Anatomical Region Laterality Modality Endoscopy 05/31/2024 1:15 PM EDT Impressions 05/31/2024 1:36 PM EDT - Diverticulosis in the sigmoid colon and in the ? descending colon. ? - Internal hemorrhoids. ? - No specimens collected. Recommendation: ?- No repeat colonoscopy due to current age (68 years ? or older). ? - Use original regular Metamucil one teaspoon PO BID. Narrative 05/31/2024 1:36 PM EDT [facility] GI Patient Name: Eran Wren Procedure Date: 05/31/2024 1:15 PM Date of : 1955 Age: 68 Gender: Male Note Status: Finalized Attending MD: Katrina Dewitt MD, Procedure Date No Time: 05/31/2024 Procedure: ? Colonoscopy Indications: ? Change in bowel habits Providers: ? Katrina Dewitt MD Referring MD: ?Traci Mckinnon MD Medicines: ? Monitored Anesthesia Care Complications: ? No immediate complications. Estimated blood loss: None. Estimated Blood Loss: ? Estimated blood loss: none. Procedure: ? Pre-Anesthesia Assessment: ? - Prior to the procedure, a History and Physical was ? performed, and patient medications and allergies were ? reviewed. The patient is competent. The risks and ? benefits of the procedure and the sedation options and ? risks were discussed with the patient. All questions ? were answered and informed consent was obtained. ? Patient identification and proposed procedure were ? verified by the physician, the nurse, the network operations manager ? and the bone density technician in the pre-procedure area in the ? endoscopy suite. Mental Status Examination: alert and ? oriented. Airway Examination: normal oropharyngeal ? airway and neck mobility. Respiratory Examination: ? clear to auscultation. CV Examination: normal. ? Prophylactic Antibiotics: The patient does not require ? prophylactic antibiotics. Prior Anticoagulants: The ? patient has taken no anticoagulant or antiplatelet ? agents. ASA Grade Assessment: III - A patient with ? severe systemic disease. After reviewing the risks and ? benefits, the patient was deemed in satisfactory ? condition to undergo the procedure. The anesthesia ? plan was to use monitored anesthesia care (MAC). ? Immediately prior to administration of medications, ? the patient was re-assessed for adequacy to receive ? sedatives. The heart rate, respiratory rate, oxygen ? saturations, blood pressure, adequacy of pulmonary ? ventilation, and response to care were monitored ? throughout the procedure. The physical status of the ? patient was re-assessed after the procedure. ? After I obtained informed consent, the scope was ? passed under direct vision. Throughout the procedure, ? the patient's blood pressure, pulse, and oxygen ? saturations were monitored continuously. The Olympus ? Colonoscope was introduced through the anus and ? advanced to the cecum, identified by appendiceal ? orifice and ileocecal valve. The colonoscopy was ? performed without difficulty. The patient tolerated ? the procedure well. The quality of the bowel ? preparation was good. Findings: ?The perianal and digital rectal examinations were ? normal. ? Multiple small and large-mouthed diverticula were ? found in the sigmoid colon and descending colon. ? Internal hemorrhoids were found during retroflexion. ? The hemorrhoids were Grade II (internal hemorrhoids ? that prolapse but reduce spontaneously). Procedure Code(s): ? --- Professional --- ? 37341, Colonoscopy, flexible; diagnostic, including ? collection of specimen(s) by brushing or washing, when ? performed (separate procedure) Diagnosis Code(s): ? --- Professional --- ? R19.4, Change in bowel habit CPT copyright 2020 [employer]. All rights reserved. The codes documented in this report are preliminary and upon effervescent salts compounder review may be revised to meet current compliance requirements. Katrina Dewitt MD 05/31/2024 1:36:28 PM This report has been signed electronically.Katrina Dewitt MD Number of Addenda: 0 Note Initiated On: 05/31/2024 1:15 PM Scope Withdrawal Time: 0 hours 8 minutes 12 seconds Scope In: 1:22:11 PM Scope Out: 1:33:23 PM ? Endoscopy Department at [facility] - [address] [place] [address], ? [place] [address] Procedure Note Katrina Dewitt MD - 05/31/2024 [facility] GI Patient Name: Eran Wren Procedure Date: 05/31/2024 1:15 PM Date of : 1955 Age: 68 Gender: Male Note Status: Finalized Attending MD: Katrina Dewitt MD, Procedure Date No Time: 05/31/2024 Procedure: Colonoscopy Indications: Change in bowel habits Providers: Katrina Dewitt MD Referring MD: Traci Mckinnon MD Medicines: Monitored Anesthesia Care Complications: No immediate complications. Estimated blood loss:None. Estimated Blood Loss: Estimated blood loss: none. Procedure: Pre-Anesthesia Assessment: - Prior to the procedure, a History and Physicalwas performed, and patient medications and allergieswere reviewed. The patient is competent. The risks and benefits of the procedure and the sedation optionsand risks were discussed with the patient. Allquestions were answered and informed consent was obtained. Patient identification and proposed procedure were verified by the physician, the nurse, theanesthetist and the bone density technician in the pre-procedure area in the endoscopy suite. Mental Status Examination: alertand oriented. Airway Examination: normal oropharyngeal airway and neck mobility. Respiratory Examination: clear to auscultation. CV Examination: normal. Prophylactic Antibiotics: The patient does notrequire prophylactic antibiotics. Prior Anticoagulants: The patient has taken no anticoagulant or antiplatelet agents. ASA Grade Assessment: III - A patient with severe systemic disease. After reviewing the risksand benefits, the patient was deemed in satisfactory condition to undergo the procedure. The anesthesia plan was to use monitored anesthesia care (MAC). Immediately prior to administration of medications, the patient was re-assessed for adequacy to receive sedatives. The heart rate, respiratory rate, oxygen saturations, blood pressure, adequacy of pulmonary ventilation, and response to care were monitored throughout the procedure. The physical status ofthe patient was re-assessed after the procedure. After I obtained informed consent, the scope was passed under direct vision. Throughout theprocedure, the patient's blood pressure, pulse, and oxygen saturations were monitored continuously. TheOlympus Colonoscope was introduced through the anus and advanced to the cecum, identified by appendiceal orifice and ileocecal valve. The colonoscopy was performed without difficulty. The patient tolerated the procedure well. The quality of the bowel preparation was good. Findings: The perianal and digital rectal examinations were normal. Multiple small and large-mouthed diverticula were found in the sigmoid colon and descending colon. Internal hemorrhoids were found duringretroflexion. The hemorrhoids were Grade II (internal hemorrhoids that prolapse but reduce spontaneously). Procedure Code(s): --- Professional --- 89422, Colonoscopy, flexible; diagnostic, including collection of specimen(s) by brushing or washing,when performed (separate procedure) Diagnosis Code(s): --- Professional --- R19.4, Change in bowel habit CPT copyright 2020 [employer]. All rights reserved. The codes documented in this report are preliminary and upon effervescent salts compounder reviewmay be revised to meet current compliance requirements. Katrina Dewitt MD 05/31/2024 1:36:28 PM This report has been signed electronically.Katrina Dewitt MD Number of Addenda: 0 Note Initiated On: 05/31/2024 1:15 PM Scope Withdrawal Time: 0 hours 8 minutes 12 seconds Scope In: 1:22:11 PM Scope Out: 1:33:23 PM Endoscopy Department at [address] [id number] IMPRESSION: - Diverticulosis in the sigmoid colon and in the descending colon. - Internal hemorrhoids. - No specimens collected. Recommendation: - No repeat colonoscopy due to current age (66years or older). - Use original regular Metamucil one teaspoon POBID. Katrina Dewitt MD GI~PROCEDURE ORDERABLES Fin al Result * Urine Albumin Creatinine Ratio (11/30/2018) Pathologist [facility] Urine Albumin Creatinine Ratio Abstracted Historical Provider HEALTH MAINTENANCE Final Result * (ABNORMAL) Lipid panel (11/30/2018) Pathologist [facility] LDL/HDL Ratio 4 0 - 4 Triglycerides 82 0 - 150 mg/dL Cholesterol 154 0 - 200 mg/dL HDL 39(A) >=40 mg/dL LDL Cholesterol 99 0 - 100 mg/dL Blood Venous blood specimen / Unknown Historical Provider LAB BLOOD ORDERABLES Allegra l Result * Hepatitis C Screening (10/19/2016) Pathologist [facility] Hepatitis C Screening Abstracted Historical Provider HEALTH MAINTENANCE Final Result from Last 3 Months or Most Recently Relevant to Health Maintenance Insurance [facility] Advance Directives * Full Code - Default (Latest Code Status on File) Date Activated Date Inactivated Comments 06/15/2024 4:46 PM 06/19/2024 8:06 PM This is orde r is used when code status has not been discussed with the patient, or code status is otherwise unknown/unconfirmed To update the patient's code status, place a code status order. Do not modify or discontinue any currently active code status orders. * Full Code - Default Date Activated Date Inactivated Comments 04/10/2024 9:37 PM 04/19/2024 7:54 PM This is orde r is used when code status has not been discussed with the patient, or code status is otherwise unknown/unconfirmed To update the patient's code status, place a code status order. Do not modify or discontinue any currently active code status orders. Healthcare Agents on File Name Relationship Healthcare Agent Relationshi p Communication Nancy White Spouse Health Care Agent Care Teams Starch Crab Relationship Specialty Start Date End Date Traci Mckinnon MD [address] [place] [address] PCP - General Internal Medicine 02/10/24
--- OUTSIDE RECORDS SUMMARY | 2024-07-19 08:36 | XMS_ITS | Clinical Summary ---
Author Organization [facility] Address [address] [place] [address] Care Team Providers Care Tool Crib Manager Name Role Phone Manfred De La Cruz MD Primary Care Provider Allergies No known active allergies Medications Medication Sig Dispensed Refills Start Date End Date Status metFORMIN (GLUCOPHAGE) tablet 500 mg Take 1,000 mg by mouth 2 (two) times a day with meals. 0 Active amLODIPine (NORVASC) tablet 5 mg Take 5 mg by mouth daily. 0 Active lisinopril (PRINIVIL,ZESTRIL) tablet 20 mg Take 40 mg by mouth daily. 0 Active rosuvastatin (CRESTOR) tablet 40 mg Take 40 mg by mouth daily. 0 Active metoprolol tartrate (LOPRESSOR) 50 MG tablet Take 50 mg by mouth 2 (two) times a day. 0 Active aspirin EC 81 MG tablet Take 81 mg by mouth daily. 0 Active insulin glargine (LANTUS) injection 100 units/mL Inject 80 Units under the skin every night at bedtime. 0 Active insulin lispro (HumaLOG) injection 100 units/mLIndications:sl iding scale Inject under the skin 3 (three) times a day before meals. 0 Active Immunizations Name Administration Dates Next Due Adacel (Tdap) 12/16/2018 Social History Tobacco Use Types Packs/Day Years Used Date Smoking Tobacco: Former Smokeless Tobacco: Never Alcohol Use Standard Drinks/Week Comments Yes 0 (1 standard drink = 0.6 oz pur e alcohol) rare Sex and Gender Information Value Date Recorded Sex Assigned at Male 12/16/2018 3:46 PM EDT Gender Identity Not on file Sexual Orientation Not on file Last Filed Vital Signs Vital Sign Reading Time Taken Comments Blood Pressure 149/77 12/16/2018 3:13 PM EDT Pulse 74 12/16/2018 3:13 PM EDT Temperature 36.8 ??C (98.2 ??F) 12/16/2018 3:13 PM ED T Respiratory Rate 18 12/16/2018 3:13 PM EDT Oxygen Saturation 100% 12/16/2018 3:13 PM EDT Inhaled Oxygen Concentration - - Weight 103.9 kg (229 lb) 12/16/2018 3:13 PM EDT Height 177.8 cm (5' 10 ) 12/16/2018 3:13 PM EDT Body Mass Index 32.86 12/16/2018 3:13 PM EDT Plan of Treatment Not on file Care Teams Tool Crib Manager Relationship Specialty Start Date End Date Manfred De La Cruz MD PCP - General Internal Medicine 12/16/18
--- OUTSIDE RECORDS SUMMARY | 2024-07-19 08:36 | XMS_ITS | Clinical Summary ---
Author Organization [facility]. Address [address] [address] Phone Care Team Providers Care Ultrasonic Cleaner Name Role Phone Traci Mckinnon MD Primary Care Provide r Allergies No known active allergies Medications aspirin (ST PARDEEP) 81 MG EC tablet Take 81 mg by mouth 1 (one) time each day Active insulin lispro (HumaLOG) 100 UNIT/ML injection Inject under the skin 3 (three) times a day before meals Active Easy Touch Pen [place] 31G X 5 MM misc TEST 4 TIMES A DAY WITH INSULIN 200 each 2 Active rosuvastatin (CRESTOR) 40 MG tablet Take 1 tablet (40 mg total) by mouth 1 (one) time each day 90 tablet 3 3 Active metoprolol tartrate 25 MG tablet Take 1 tablet (25 mg total) by mouth in the morning and 1 tablet (25 mg total) in the evening. 180 tablet 2 3 Active metFORMIN (GLUCOPHAGE) 1000 MG tablet TAKE ONE TABLET BY MOUTH TWICE A DAY 180 tablet 3 Active metFORMIN (GLUCOPHAGE) 1000 MG tablet Take 1 tablet (1,000 mg total) by mouth in the morning and 1 tablet (1,000 mg total) in the evening. Take with meals. 180 tablet 3 Active Farxiga 10 MG tablet TAKE ONE TABLET BY MOUTH EVERY MORNING 90 tablet 3 4 Active lisinopril 40 MG tablet TAKE 1 TABLET (40 MG) BY MOUTH ONCE DAILY 90 tablet 5 4 Active NIFEdipine CC (ADALAT CC) 60 MG 24 hr tablet Take 120 mg by mouth 1 (one) time each day before breakfast Do not crush, chew, or split. Active insulin glargine (LANTUS) 100 UNIT/ML injection Inject 70 Units as directed at bedtime. 0 Active chlorthalidone 25 MG tablet Take 1.5 tablets (37.5 mg total) by mouth 1 (one) time each day 45 tablet 11 4 03/08/20 25 Active Cholecalciferol (Vitamin D3) 50 MCG (1999 UT) tabletIndicatio ns:Chronic kidney disease, stage 2 (mild),Vitamin D deficiency, not otherwise specified Take 2,000 Units by mouth 1 (one) time each day 90 tablet 3 4 03/08/20 25 Active Active Problems Problem Noted Date Diagnosed Date Vitamin D deficiency, not otherwise specified Proteinuria, not otherwise specified 01/12/2024 Other chronic osteomyelitis, right ankle and lena t 09/01/2021 Coronary artery disease due to lipid rich plaque 11/08/2020 Chronic kidney disease 11/08/2020 Diabetes mellitus 11/08/2020 History of diabetic foot ulcer 11/08/2020 Hypertension 11/08/2020 Hyperlipidemia 11/08/2020 Left ventricular systolic dysfunction 11/08/2020 Migraine 11/08/2020 Old myocardial infarction 11/08/2020 Gastroesophageal reflux disease 11/08/2020 Obesity 11/08/2020 Coronary artery bypass graft occlusion Tubular adenoma of colon 11/08/2020 Type 2 diabetes mellitus with diabetic nephropat hy 11/08/2020 Stage 3a chronic kidney disease 11/08/2020 Essential (primary) hypertension 11/08/2020 Family History Medical History Relation Comments Heart disease Father Hypertension Father Cancer Mother Hypertension Mother Relation Status Comments Father Mother Social History Tobacco Use Types Packs/Day Years Used Date Smoking Tobacco: Former Smokeless Tobacco: Former Tobacco Cessation:Counseling Given: Not Answered Alcohol Use Standard Drinks/Week Comments Yes 0 (1 standard drink = 0.6 oz pur e alcohol) Sex and Gender Information Value Date Recorded Sex Assigned at Not on file Legal Sex Male 1:10 PM EDT Gender Identity Not on file Sexual Orientation Not on file Last Filed Vital Signs Vital Sign Reading Time Taken Comments Blood Pressure 132/70 03/08/2024 8:43 AM EST Pulse 82 03/08/2024 8:22 AM EST Temperature - - Respiratory Rate - - Oxygen Saturation 97% 03/08/2024 8:22 AM EST Inhaled Oxygen Concentration - - Weight 89.8 kg (198 lb) 03/08/2024 8:22 AM EST Height 177.8 cm (5' 10 ) 01/12/2024 8:21 AM EDT Body Mass Index 28.41 01/12/2024 8:21 AM EDT Plan of Treatment Upcoming Encounters Date Type Department Care Team (Late st Contact Info) Description 09/20/2024 8:45 AM EDT Office Visit [facility] [place] [address] [address] Shabnam Preciado ARNP [address] [address] Health Maintenance Due Date Last Done Comments Colorectal Cancer Screening: Annual FOBT 2006 Colorectal Cancer Screening: Colonoscopy 2006 Colorectal Cancer Screening: Sigmoidoscopy 2006 Pneumococcal Vaccine: 50+ Years (3 of 3 - PCV) 09/05/2015 09/04/2014, 05/19/2007 Diabetes: Ophthalmology Exam 11/08/2020 Diabetes: Pedal Pulse Checked 11/08/2020 Diabetes: Sensory Foot Exam 11/08/2020 Diabetes: Visual Foot Exam 11/08/2020 Diabetes: Hemoglobin A1C 09/15/202406/15/2 025, 11/18/2022, 09/01/2021, Additional history exists Influenza Vaccine (Season Ended) 2024 01/14/2017, 03/28/2013, 12/19/2011 Hepatitis B Vaccine Aged Out 09/19/2009 No longe r eligible based on patient's age to complete this topic Pneumococcal Vaccine: Peds (0 to 5 Years) and At-Risk Patients (6 to 49 Years) Discontinued 09/04/2014, 05/19/2007 Procedures Procedure Name Priority Date/Time Associated Diagnosis Comments HEMOGLOBIN A1C Routine 11/18/2022 9:54 AM EDT Type 2 diabetes mellitus with diabetic nephropathy (HCC) Other chronic osteomyelitis, right ankle and foot (HCC) Stage 3a chronic kidney disease (HCC) Essential (primary) hypertension from Last 3 Months or Most Recently Relevant to Health Maintenance Results * (ABNORMAL) Hemoglobin A1c (11/18/2022 9:54 AM EDT) Hemoglobin A1C 8.1(H) (4.0-5.6) % [facility] Comment: MONITORING: In known diabetic patients, hemoglobin A1c targets should be discussed with health care provider. DIAGNOSTIC USE: ??The [place] Diabetes Association (ADA) and the World Health Organization (WHO) recommend the use of HbA1c to diagnose diabetes using a threshold of 6.5%. Patients who have an HbA1c between 5.7% and 6.4% are considered at increased risk for developing diabetes in the future. CAUTION: Falsely low HbA1c results may be observed in patients with hemolytic anemia, homozygous forms of abnormal hemoglobin (e.g. SS, CC, SC), , recent blood loss or hemoglobin F greater than 7%. Fructosamine may be used as an alternate test in these cases. REFERENCE: ADA: Standards of Medical Care in Diabetes 2020, The Journal of Clinical and Applied Research and Education Volume 43, Supplement 1 Testing performed or reported by [facility], a Service of [facility], [address] [place] [address] Doni Vickers MD, Charge Rn [facility]# [id number] Blood (Blood, Venous) 11/18/2022 9:54 AM EDT 11/18/2022 9:57 AM EDT Adiel Echeverria MD LAB BLOOD ORDERABLES Allegra dodd Result [facility] from Last 3 Months or Most Recently Relevant to Health Maintenance Insurance [facility] Care Teams Ultrasonic Cleaner Relationship Specialty Start Date End Date Traci Mckinnon MD [address] [place] [id number] PCP - General Internal Medicine 01/12/24
[2024-07-19 08:41] LABS: Glucose, Whole Blood 96 mg/dL (60-115)
== END 2024-07-19 09:03 | disposition home or self-care (01) ==
LOC: HO.ENCR 08:22
PROVIDERS: PCP Internal Medicine; Visit Provider Nurse Practitioner Adult Health
DX: E11.9 Type 2 diabetes mellitus without complications (principal)
CPT/HCPCS: 99214; G2211

== ENCOUNTER → 2024-07-19 08:22 | Outpatient (BNVA) | payer OTHER, SELFPAY | PROVIDERS: PCP Internal Medicine; Visit Provider Nurse Practitioner Adult Health | DX: Z46.81 Encounter for fitting and adjustment of insulin pump (principal); E11.9 Type 2 diabetes mellitus without complications | CPT/HCPCS: 82947; 83036 ==

== ENCOUNTER 2024-12-06 13:03 | Outpatient (AMB) | payer OTHER, SELFPAY ==
--- NOTE | 2024-12-06 13:05 | MHC.OFFVIS ---
Vital Signs 12/06/24 13:08 Height 5 ft 10 in Weight 203 lb 4.259 oz BMI 29.2 BP 122/76 Blood Pressure Location Rt brachial Position Sitting Pulse 85 Pulse Source Pulse Oximeter Pulse Oximetry (%) 97 Oxygen Delivery Method Room Air Intake Visit Reasons: T2DM Intake Note: Patient present today to follow up on Type 2 Diabetes Mellitus. Patient receives Dexcom G7 sensor through: [facility] Patient receives T-slim through: [facility] Rx Last Diabetic Eye exam: February 2024 Last Podiatry Visit: September 2024 for bone cleaning on the right foot, Dr. Sanchez, next appointment is in February. Random Glucose: 340 mg/dl Hgb A1C: 6.5% 12/06/2024 Communications Manager Required: No Accompanied by: Self / Same As Patient Allergies No Known Allergies Allergy (Verified 12/06/24 13:11) Medication List - Last Reconciled 12/06/24 by Max Saunders MD acetone (urine) test (Ketone Urine Test strips) P.r.n. t.i.d. glucose over 250, nausea, vomiting or illness blood-glucose sensor (Dexcom G7 Sensor device) As directed change every 10 days chlorthalidone 25 mg PO DAILY dapagliflozin propanediol (Farxiga) 10 mg PO DAILY 90 days dulaglutide (Trulicity) 3 mg (0.5 mL) subcut QWEEK 84 days glucagon 3 mg/actuation (Baqsimi) 3 mg intranasal ONCE PRN 30 days glucose (Dex4 Glucose) 16 grams (4 x 4 gram) PO Q15M PRN 30 days MDD 16 tablets infusion set for insulin pump (AutoSoft XC Infusion Set 23 ) every 3 days insulin glargine (Lantus Solostar U-100 Insulin) 25 units (0.25 mL) subcut DAILY PRN insulin lispro (Admelog U-100 Insulin lispro) up to 90 units per day via pump subcutaneously use as directed; 90 days insulin pump cartridge (t:slim X2 subcutaneous cartridge) As directed every 3 days lisinopril 40 mg PO DAILY 90 days metformin 1,000 mg PO BID 90 days nifedipine ER 120 mg PO .QD rosuvastatin 40 mg PO DAILY tadalafil 5 mg PO DAILY tadalafil 10 mg PO ONCE PRN HPI Comments Details: 69 YO male who is seen in f/u for T2DM on a Tandem t slim insulin pump. . He was last seen by Rebecca Vazquez NP on 07/19/24 and he has been working on entering all of his carbohydrates into his pump additionally, his carb ratio was adjusted in January to give him more preprandial insulin. He is followed by wound clinic at [facility] for a foot ulcer which he reports is improving. He has been referred also to Dr. Sanchez. He has a Charcot foot. Was diagnosed with osteomyelitis in March and had great toe and second toe right side amputation. Was on antibiotics. Followed by vascular. Was at [facility]. When he was in the hospital they were not giving him Lantus for the 1st 9 days and he was off his pump. He was seen by vascular last week and has follow up both vascular and Podiatry Initially diagnosed with T2DM 1998. Was initially started on treatment with metformin andl glyburide Current regimen: T slim X 2 insulin pump Lispro(admelog) Metformin 1000 mg b.i.d. Trulicity 3 mg weekly Farxiga 10 mg daily Dexcom average glucose:148 14 day continuous glucose monitor report reviewed Days with CGM data [80 ] % TIme in ranges: 10 % very high (above 250) 26 % high ?(181-250) 64 % in range ?(70-180] 0 % low (69-55) 0 % ?very low (below 54) [nterpretation: Sensor pen shows normal glucose is throughout the day with a spike post-dinner. However, patient is not entering carbs prior to dinner Pump Settings: Basal 12AM 1.13 units/hour Sensitivity 12 AM 31 Insulin to carb ratio 12 AM 8.5 BG target 12AM 110 mg/dL Reports low sugars none Treats lows with something sweet. Rare hypoglycemia Family history of T2DM in maternal grandfather Has eyes checked yearly, last eye exam: has appt next wk sees retinal specialist Has retinopathy has amd Followed by Wound Care Clinic at [facility]: Has small foot ulcer on left foot great toe, has Charcot arthropathy has had 5 amputated right foot, partial amputation left toe previously was followed by Podiatry Now sees Dr. Sanchez. Sees regulalry + nephropathy, on LUIS. eGFR 55 03/2022 Has HLD, on statin. Last LDL [] as measured on []. Labs not available today ordered Has CAD. 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 [facility] Medical History Tubular adenoma of colon Screening for colorectal cancer Reflux esophagitis Old [place] (myocardial infarction) Obstructive sleep apnea Obesity due to excess calories Migraine LV dysfunction Hypercholesteremia HTN (hypertension) Hearing aid worn Diabetic foot ulcer CAD (coronary artery disease) Abdominal pain Osteomyelitis Diabetes mellitus Surgical History History of surgery History of vasectomy Hx of colonoscopy S/P CABG x 3 Family History Father No problems noted. Mother No problems noted. Social History Alcohol intake: current Alcohol intake frequency: holidays/special occasions only Patient Tobacco Use Status: Never used Tobacco Physical Exam Vital Signs: BMI result Body Mass Index 29.2 Const Other: Absence of Cushingoid features. Absence of acromegalic features. Neck exam reveals nl size thyroid about 15 gms. No thyroid nodules palpable. Heart S1 S2, Reg R/R. No M/R G. Skin exam reveals absence of vitiligo or acanthosis nigricans. Visual exam of foot performed. No ulcerations or open lesions. fissuring between several toes left , no callouses. Charcot foot. Right foot all toes amputated. Results AMB Hemoglobin A1c AMB Hemoglobin A1c 6.5 % Last Edit by MAGNOLIA Mari on 12/06/24 13:38 Assessment & Plan Assessment & Plan (1) Diabetes mellitus: Code(s): E11.9 - Type 2 diabetes mellitus without complications Category: Medical Plan: This is a 69-year-old white male with a history of type 2 diabetes treated with metformin, Trulicity, Farxiga and tandem insulin pump with fair glycemic control and known microvascular macrovascular complications namely Charcot neuropathy, nephropathy and CAD . The plan is to have the patient enter carbs and bolus before dinner. If this does not result in lower post-dinner blood sugars, could consider titrating the insulin: Carbohydrate before dinner. We will have patient follow up with special educator in the next couple of weeks to make that adjustment if necessary. We will have patient check lipid profile microalbumin to creatinine ratio. Orders: Orders Lipid Panel Today E11.9 - Type 2 diabetes mellitus without complications Microalbumin, Random (w Creat) Today E11.9 - Type 2 diabetes mellitus without complications AMB Hemoglobin A1c Today E11.9 - Type 2 diabetes mellitus without complications Medications: Refilled dapagliflozin propanediol (Farxiga) 10 mg PO DAILY 90 tabs 3RF 90 days metformin 1,000 mg PO BID 180 tabs 3RF 90 days insulin lispro (Admelog U-100 Insulin lispro) up to 90 units per day via pump subcutaneously use as directed; 90 mL 3RF 90 days dulaglutide (Trulicity) 3 mg (0.5 mL) subcut QWEEK 6 mL 3RF 84 days Coding Level of Care Code Est Pt Level 4 (86320) Complex EM visit Add On G2211 Diagnoses Diabetes mellitus E11.9
[2024-12-06 13:08] VITALS: BP 122/76; PULSE 85; O2SAT 97; BMI 29.2
[2024-12-06 13:25] LABS: Glucose, Whole Blood 340 mg/dL (60-115)
--- OUTSIDE RECORDS SUMMARY | 2024-12-06 16:32 | XMS_ITS ---
Author Name [facility] Organization Unknown History of Medication Use Medication Directions Dispensed Refills Start Date End Date Stat foam bandage (Mepilex) 4 X 4 bandage Apply 1 EA topically every other day. 08/29/2024 active bisacodyL (DULCOLAX) 5 mg EC tablet Take 2 tablets by mouth right before beginning bowel prep. See instructions provided by the office 05/17/2024 active polyethylene glycol (Golytely) 236-22.74-6.74 -5.86 gram solution Take 4L by mouth once for one dose. May substitue any PEG. Starting at 6PM the night before your procedure drink 1 8oz glasses at your own pace until you complete half of the gallon. Finish 2nd half of the gallon 5 hours before your procedure. 05/17/2024 active metoprolol tartrate (LOPRESSOR) 25 mg tablet Take 1 tablet (25 mg total) by mouth 2 (two) times a day. 04/19/2024 active oxyCODONE (ROXICODONE) 5 mg immediate release tablet Take 1 tablet (5 mg total) by mouth every 6 (six) hours if needed for severe pain. Take 1/2 tablet(2.5 mg total) by mouth every 6 hours if needed for moderate pain Max Daily Amount: 20 mg 04/19/2024 active metFORMIN (GLUCOPHAGE) 1,000 mg tablet Take 1 tablet (1,000 mg total) by mouth 2 (two) times a day with meals. 06/18/2020 active insulin glargine (LANTUS SoloStar) 100 unit/mL (3 mL) injection pen 25 Units 1 (one) time each day if needed (hyperglycemia or pump failure). 05/04/2019 active insulin lispro (HumaLOG KwikPen Insulin) 200 unit/mL (3 mL) CONCENTRATED injection pen 05/04/2019 active sildenafiL (VIAGRA) 100 mg tablet 05/04/2019 active rosuvastatin (CRESTOR) 40 mg tablet Take 1 tablet (40 mg total) by mouth 1 (one) time each day. 02/06/2019 active pen needle, diabetic 31 gauge x 3/16 needle Insulin Pen Needle (EASY TOUCH PEN NEEDLES) 31G X 5 MM Misc Use 4x a day w/ insulin 10/04/2013 active amphetamine-dextroamph etamine XR (ADDERALL XR) 30 mg 24 hr capsule Take 1 capsule (30 mg total) by mouth 2 (two) times a day if needed. Do not crush or chew. active aspirin 81 mg EC tablet Take 1 tablet (81 mg total) by mouth 1 (one) time each day. active carvediloL (COREG) 12.5 mg tablet Take by mouth 2 (two) times a day with meals. active chlorthalidone (HYGROTON) 25 mg tablet Take 1.5 tablets (37.5 mg total) by mouth 1 (one) time each day. active dapagliflozin propanediol (Farxiga) 10 mg tablet Take 1 tablet (10 mg total) by mouth 1 (one) time each day. active diphenhydrAMINE (BENADRYL) 25 mg capsule Take 1 capsule (25 mg total) by mouth every 6 (six) hours if needed for allergies. active famotidine (PEPCID) 20 mg tablet Take 1 tablet (20 mg total) by mouth 1 (one) time each day if needed for heartburn. active insulin lispro (HumaLOG) 100 UNIT/ML patient supplied pump 1 EA by continuous sub-Q infusn (via wearable injector) route continuously. active lisinopril (PRINIVIL,ZESTRIL) 40 mg tablet Take 1 tablet (40 mg total) by mouth 1 (one) time each day. active NIFEdipine XL (PROCARDIA XL) 60 mg 24 hr tablet Take 2 tablets (120 mg total) by mouth 1 (one) time each day before breakfast. Do not crush, chew, or split. active Allergies Allergen Reaction Severity Comment Documented Date Source Statu s SULFAMETHOXAZOLE- TRIMETHOPRIM OTHER Sts when takes penis gets red and itchy 06/15/2024 [facility] active Problems Problem Status Onset Date Problem Type Date of Resoluti on Source Type 2 diabetes mellitus with peripheral neuropathy (CMS/HCC V24, CMS/HCC V28) active 2024-09-20 ProblemAct [facility] CAD (coronary artery disease) active 2017-03-01 ProblemAct [facility] Hypertension active 2011-04-02 ProblemAct [facility] Obesity (BMI 30.0-34.9) active 2017-03-01 ProblemAct [facility] Diabetic ulcer of left fifth toe ([facility] V24, [facility] V28) active 2017-02-16 ProblemAct [facility] [place] (myocardial infarction) active 2014-10-05 ProblemAct [facility] Osteomyelitis of second toe of left foot ([facility] V24, [facility] V28) active 2024-07-13 ProblemAct [facility] Hyperlipidemia active 2011-04-02 ProblemAct [facility] Skin ulcer of second toe of left foot with fat layer exposed ([facility] V24, [facility] V28) active 2024-07-13 ProblemAct [facility] Diabetic foot infection ([facility] [place] V24, [facility] V28) active 2024-06-15 ProblemAct [facility] Non-pressure chronic ulcer of other part of right foot with bone involvement without evidence of necrosis ([facility] V24, [facility] V28) active 2024-09-20 ProblemAct [facility] Type 2 diabetes mellitus with diabetic neuropathy, with long-term current use of insulin ([facility] [place] V24, [facility] V28) active 2024-01-27 ProblemAct [facility] Type II diabetes mellitus with renal manifestations ([facility] [place] V24, [facility] V28) active 2011-11-26 ProblemAct [facility] Immunizations Vaccine Date Source Lot Number Status Influenza trivalent, with pr eservative (Fluzone; Afluria) 6mo and older 01/14/2017 [facility] UNK completed Influenza trivalent, with pr eservative (Fluzone; Afluria) 6mo and older 03/28/2013 [facility] UNK completed Influenza trivalent, with pr eservative (Fluzone; Afluria) 6mo and older 12/19/2011 [facility] UNK completed
--- OUTSIDE RECORDS SUMMARY | 2024-12-06 16:32 | XMS_ITS | Continuity of Care Document ---
Author Organization [facility] [address] [place] [address] Phone [phone] Care Team Providers Care Finance Analyst Name Role Phone James Obdulia SANDHU Care Team Information Residential Treatment Counselor [phone] Rabia Nick M.D. Care Team Information Residential Treatment Counselor [phone] Problems Active Problems Provider Date Coronary atherosclerosis [...] Social History Type Date Description Comments Sex Male Sex Unknown ETOH Use Occasionally consumes alcoho l Tobacco Use Start: Unknown End: Unknown Patient is a former smoker Allergies and adverse reactions Description No Known Drug Allergies Medications Active Medications SIG Qnty Indications Order ing Provider Date Metoprolol [id number] Tablets take 1 tablet by mouth twice a day Unknown Sulfamethoxazole/Tr imethoprim [id number] Tablets take 1 tablet by mouth twice daily for 14 days 14tabs Lori Taylor MD T:Slim X2 3ML [id number] Cart Misc Rabia Nick M.D. Syzthnenvn48lj Tablets 1 by mouth every day 90tabs Unknown 000 Amphetamine-Dextroa [id number] Tablets Rabia Nick M.D. Jadankmey8jf/0.5ML Solution Pen-Inject 1 injection subcutaneously every week 12ml Unknown Qjqwwsxle0lm Tablets one daily as needed Rabia Nick M.D. Nufsxad74fx Tablets 1 by mouth every day 90tabs Unknown Insulin Sojeht113Vpku/ML Solution use in pump 6ml Rabia Nick M.D. Rosuvastatin Rrclsih75px Tablets 1 by mouth every day Unknown [...] 8.3% Procedures Date Code Description Status 05/13/2022 58589 Glucose Monitoring Interpeta tion And Report Completed Medical Devices Description No Information Available Encounters Type Date Location Provider Dx Diagnosis Office Visit 05/13/2022 9:30a Main Office Raman Camacho M.D. E11.9 Type 2 diabetes mellitus without complications E78.5 Hyperlipidemia, unsp ecified I25.10 Athscl heart disease of mechoop[place] coronary artery w/o ang pctrs E11.40 Type [...]
--- OUTSIDE RECORDS SUMMARY | 2024-12-06 16:32 | XMS_ITS | Clinical Summary ---
Author Organization [facility] Address [address] [id number] Phone Care Team Providers Care Counting Machine Operator Name Role Phone Traci Mckinnon MD Primary Care Provide r Allergies No known active allergies Medications aspirin (ST PARDEEP) 81 MG EC tablet Take 81 mg by mouth 1 (one) time each day Active insulin lispro (HumaLOG) 100 UNIT/ML injection Inject under the skin 3 (three) times a day before meals Active Easy Touch Pen Hendricks 31G X 5 MM misc TEST 4 [...] TWICE A DAY 180 tablet 3 Active Farxiga 10 MG [...] 25 Active Cholecalciferol (Vitamin D3) 50 MCG (1999) tabletIndicatio ns:Chronic kidney disease, stage 2 (mild),Vitamin [...] 01/12/2024 8:21 AM EDT Plan of Treatment Health Maintenance Due Date Last Done Comments Colorectal Cancer Screening: Annual FOBT 2006 Colorectal Cancer Screening: Colonoscopy 2006 Colorectal Cancer Screening: Sigmoidoscopy 2006 Pneumococcal Vaccine: 50+ Years (3 of 3 - PCV) 09/05/2015 09/04/2014, 05/19/2007 Diabetes: Ophthalmology Exam 11/08/2020 Diabetes: Pedal Pulse Checked 11/08/2020 Diabetes: Sensory Foot Exam 11/08/2020 Diabetes: Visual Foot Exam 11/08/2020 Influenza Vaccine (#1) 2024 7, 03/28/2013, 12/19/2011 Diabetes: Hemoglobin A1C 12/28/2024 025, 06/15/2024, 11/18/2022, Additional history exists Hepatitis B Vaccine Aged Out 09/19/2009 No [...] AM EDT) Hemoglobin A1C 8.1(H) (4.0-5.6) % [facility] Comment: MONITORING: In known diabetic patients, hemoglobin A1c targets should be discussed with health care provider. DIAGNOSTIC USE: The [place] [employer] (ADA) and the World Health [...] Supplement 1 Testing performed or reported by [facility], a Service of [facility], [address] [place] [address] Doni Vickers MD, Consulting Services Manager [facility]# [id number] Blood specimen (specimen) Venous blood / Unknown 11/18/2022 9:54 AM EDT 11/18/2022 9:57 AM EDT Adiel Echeverria MD LAB BLOOD ORDERABLES Allegra dodd Result [facility] from Last 3 Months or Most Recently Relevant to Health Maintenance Insurance [facility] Care Teams Counting Machine Operator Relationship Specialty Start Date End Date Traci Mckinnon MD [address] [place] [id number] PCP - General Internal Medicine 01/12/24
--- OUTSIDE RECORDS SUMMARY | 2024-12-06 16:32 | XMS_ITS | Clinical Summary ---
Author Organization [facility] Address [address] [place] [address] Care Team Providers Care Education Managers Name Role Phone Manfred De La Cruz MD Primary Care Provider [phone] Allergies No known active allergies Medications Medication [...] 74 12/16/2018 3:13 PM EDT Temperature 36.8 C (98.2 F) 12/16/2018 3:13 PM EDT Respiratory Rate 18 12/16/2018 3:13 PM EDT Oxygen Saturation 100% 12/16/2018 3:13 PM EDT Inhaled Oxygen Concentration - - Weight 103.9 kg (229 lb) 12/16/2018 3:13 PM EDT Height 177.8 cm (5' 10 ) 12/16/2018 3:13 PM EDT Body Mass Index 32.86 12/16/2018 3:13 PM EDT Plan of Treatment Not on file Care Teams Education Managers Relationship Specialty Start Date End Date Manfred De La Cruz MD PCP - General Internal Medicine 12/16/18
--- OUTSIDE RECORDS SUMMARY | 2024-12-06 16:32 | XMS_ITS | Clinical Summary ---
Author Organization 175 [facility] Address [address] [place] [address] Phone Care Team Providers Care Warper Tender Name Role Phone Traci Mckinnon MD Primary Care Provide r Allergies Active Allergy Reactions Criticality Noted Date Comments Sulfamethoxazole-Trimethop rim Other Low 06/15/2024 Sts when takes penis gets red and itchy Medications aspirin 81 mg EC tablet Take 1 tablet (81 mg total) by mouth 1 (one) time each day. Active glucose blood (Easy Touch Test Strip) test strip 1 Strip by Does not apply route 4 times daily. 6 Active insulin glargine (LANTUS SoloStar) 100 unit/mL (3 mL) injection pen 25 Units 1 (one) time each day if needed (hyperglycemia or pump failure). 0 Active insulin lispro (HumaLOG KwikPen Insulin) 200 unit/mL (3 mL) CONCENTRATED injection pen 0 Active pen needle, diabetic 31 gauge x 3/16 needle Insulin Pen Needle (EASY TOUCH PEN NEEDLES) 31G X 5 MM Misc Use 4x a day w/ insulin 9 Active insulin syringe-needle U-100 0.5 mL 30 gauge x 1/2 syringe Insulin Syringe-Needle U-100 (B-D INS SYR ULTRAFINE .5CC/30G) 30G X 1/2 0.5 ML MISC 1 Syringe by Does not apply route daily. 4 Active metFORMIN (GLUCOPHAGE) 1,000 mg tablet Take 1 tablet (1,000 mg total) by mouth 2 (two) times a day with meals. 1 Active rosuvastatin (CRESTOR) 40 mg tablet Take 1 tablet (40 mg total) by mouth 1 (one) time each day. 9 Active sildenafiL (VIAGRA) 100 mg tablet 0 Active oxyCODONE (ROXICODONE) 5 mg immediate release tablet Take 1 tablet (5 mg total) by mouth every 6 (six) hours if needed for severe pain. Take 1/2 tablet(2.5 mg total) by mouth every 6 hours if needed for moderate pain Max Daily Amount: 20 mg 15 tablet 5 Active polyethylene glycol (Golytely) 236-22.74-6.74 -5.86 gram solution Take 4L by mouth once for one dose. May substitue any PEG. Starting at 6PM the night before your procedure drink 1 8oz glasses at your own pace until you complete half of the gallon. Finish 2nd half of the gallon 5 hours before your procedure. 4000 mL 5 Active bisacodyL (DULCOLAX) 5 mg EC tablet Take 2 tablets by mouth right before beginning bowel prep. See instructions provided by the office 2 tablet 5 Active insulin lispro (HumaLOG) 100 UNIT/ML patient supplied [...] Do not crush, chew, or split. Active famotidine (PEPCID) 20 mg tablet Take [...] mouth 1 (one) time each day. Active carvediloL (COREG) 12.5 mg tablet Take by mouth 2 (two) times a day with meals. Active chlorthalidone (HYGROTON) 25 mg tablet Take 1.5 tablets (37.5 mg total) by mouth 1 (one) time each day. Active Active Problems Patient Care Coordination No te Formatting of this note migh t be different from the original. No accepting VNA services, Option care for IV abx. 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 without evidence of necrosis ([facility] V24, [facility] V28) 09/20/2024 Type 2 diabetes mellitus wit h peripheral neuropathy ([facility] V24, [facility] V28) 09/20/2024 Skin ulcer of second toe of left foot with fat layer exposed ([facility] V24, [facility] V28) 07/13/2024 Osteomyelitis of second toe of left foot [place] [place] [facility] V28) 07/13/2024 Diabetic foot infection ([facility] V24, [facility] V2 8) 06/15/2024 Osteomyelitis ([facility] V24, [facility] V28) 025 Osteomyelitis of great toe o f right foot ([facility] V24, [facility] V28) 04/10/2024 Type 2 diabetes mellitus wit h diabetic neuropathy, with long-term current use of insulin ([facility] V24, [facility] V28) 01/27/2024 CAD (coronary artery disease) 03/01/2017 Overview (01/27/2024): CABG 2014 Obesity (BMI 30.0-34.9) 03/01/2017 Diabetic ulcer of left fifth toe ([facility] V24, C CT/[facility] V28) 02/16/2017 Osteomyelitis of toe of left foot [place] [place], [facility] V28) 12/14/2016 Old OK (myocardial infarction) 10/05/2014 Overview (01/27/2024): nstemi Type II diabetes mellitus wi th renal manifestations ([facility] V24, [facility] V28) 11/26/2011 Hyperlipidemia 04/02/2011 Hypertension 04/02/2011 Encounters Date Type Department Care Team Description 11/22/2024 10:45 AM EDT Office Visit Orthopedic Surgery [place] [phone] [phone] Salazar Sanchez DPM Ingrowing nail (Primary Dx); Dermatophytosis of nail; Blister of left foot, initial encounter; Postoperative examination 11/22/2024 Telephone Orthopedic Surgery [place] [address] [phone] Salazar Sanchez DPM 10/25/2024 3:30 PM EDT Office Visit Orthopedic Surgery [facility] [address] [phone] Salazar Sanchez DPM Blister of left foot, initial encounter (Primary Dx); Dermatophytosis of nail; Pain in toe of left foot; Ulcer of toe of right foot, with fat layer exposed [place] [place], [facility] V28); Diabetic mononeuropathy simplex [place] [place], [facility] [place]28) 10/11/2024 3:30 PM EDT Office Visit Orthopedic [facility] [address] [phone] Salazar Sanchez DPM Post-operative state (Primary Dx); History of transmetatarsal amputation of right foot ([facility] [place], [facility] V28) 09/29/2024 12:52 PM EDT Anesthesia Event [facility] OR [address] [place] [phone] Rosendo Pizano MD 09/29/2024 12:46 PM EDT - 09/29/2024 2:16 PM EDT Surgery [facility] OR [address] [place] [phone] Salazar Sanchez DPM EXCISION METATARSAL HEAD RIGHT [39634 (CPT )] 09/27/2024 2:12 PM EDT - 10/04/2024 5:54 PM EDT Hospital Encounter [facility] [address] [place] [address] Aristeo Lawson MD Flores, Carlos M, MD Japaridze, Anna, MD Seralathan, Manikandan, MD Zipagan, James T, MD Santoyo-Pacheco, Erik Means MD Osteomyelitis of right foot, unspecified type ([facility] [place], [facility] V28) (Primary Dx) Discharge Disposition: Home or Self Care 09/26/2024 Telephone Infectious Disease - [place] [address] [place] [address] John Decker LPN 09/20/2024 12:45 PM EDT Consult [facility] [address] [place] [address] Isra King PA Type 2 diabetes mellitus with peripheral neuropathy ([facility] [place], [facility] V28) (Primary Dx); Type 2 diabetes mellitus with foot ulcer (CODE) ([facility] [place], [facility] [place]28); Non-pressure chronic ulcer of other part of right foot with bone involvement without evidence of necrosis ([facility] [place], [facility] [place]) 09/19/2024 9:30 AM EDT Consult Orthopedic Surgery - [place] 250 175 [facility] [address] [place] [address] Jensen Faust, CHIDI Controlled type 2 diabetes with neuropathy ([facility] [place], [facility] V28) (Primary Dx); Chronic osteomyelitis of hindfoot, right ([facility] [place], [facility] V28); History of transmetatarsal amputation of right foot ([facility] [place], [facility] V28); Midfoot ulcer with necrosis of bone, right ([facility] [place], [facility] V28) 09/05/2024 Telephone Vascular Surgery - [place] [address] [place] [address] Otto Trejo MD from Last 3 Months Immunizations Name Administration Dates Next Due Influenza trivalent, with pr eservative (Fluzone; Afluria) 6mo and older 01/14/2017,03/28/2013,12/19/2011 Surgical History Surgery Date Site/Laterality Comments APPENDECTOMY 1971 PROCEDURE: HISTORICAL APPENDECTOMY BACK SURGERY 1990 PROCEDURE: HISTORICAL BACK SURGERY; COMMENT: L4-5 fusion CARDIAC SURGERY PROCEDURE:CARDIAC SURGERY;COMMENT:double bypass COLONOSCOPY ESOPHAGOGASTRODUODENOSCOPY LUMBAR FUSION CORONARY ARTERY BYPASS GRAFT AMPUTATION Bilateral Medical History Medical History Date Comments Osteomyelitis of toe of left foot ([facility] [place], [facility] V28) 12/14/2016 DX:Osteomyelitis of toe of left foot ([facility]) Diabetic ulcer of left fifth toe ([facility] V24, [facility] V28) 02/16/2017 DX:Diabetic ulcer of left fi fth toe ([facility]) Type 2 diabetes mellitus wit h diabetic neuropathy, with long-term current use of insulin ([facility] V24, [facility] V28) 02/22/2017 DX:Type 2 diabetes mellitus with diabetic neuropathy, with long-term current use of insulin ([facility]) Diabetes mellitus ([facility] V 24, [facility] [place] DX:Diabetes mellitus ([facility]) Hypertension DX:Hypertension GERD (gastroesophageal reflux disease) Chronic kidney disease Hyperlipidemia Heart disease CAD (coronary artery disease) Osteomyelitis ([facility] V24, [facility] V28) Abdominal aortic atheroscler osis ([facility] V24) LV dysfunction Tubular adenoma of colon Myocardial infarction ([facility] V24, [facility] V28) HL (hearing loss) Diabetic retinopathy ([facility] C V24, [facility] [place] Family History Medical History Relation Name Comments Heart attack Father Lung cancer Mother Relation Name Status Comments Father Mother Social History Tobacco Use Types Packs/Day Years Used Date Smoking Tobacco: Former Cigarettes Q uit: 03/22/1982 Smokeless Tobacco: Never Alcohol Use Standard Drinks/Week Comments Yes 0 (1 standard drink = 0.6 oz pur e alcohol) Interpersonal Safety Answer Date Record ed Physical Abuse 09/27/2024 Verbal Abuse 09/27/2024 Sex and Gender Information Value Date Recorded Sex Assigned at Male 04/10/2024 8:57 PM EST Legal Sex Male 9:56 AM EST Gender Identity Male 04/10/2024 8:57 PM EST Sexual Orientation Straight 04/10/2024 8: 57 PM EST Obstetrics History Last Filed Vital Signs Vital Sign Reading Time Taken Comments Blood Pressure 156/71 10/04/2024 5:08 PM EDT Pulse 64 10/04/2024 5:08 PM EDT Temperature 36.6 C (97.9 F) 10/04/2024 7:00 AM EDT Respiratory Rate 17 10/04/2024 7:00 AM EDT Oxygen Saturation 96% 10/04/2024 7:00 AM EDT Inhaled Oxygen Concentration - - Weight 92.9 kg (204 lb 12.9 oz) 09/27/2024 6:47 PM EDT Height 177.8 cm (5' 10 ) 09/27/2024 6:47 PM EDT Body Mass Index 29.39 09/27/2024 6:47 PM EDT Plan of Treatment Upcoming Encounters Date Type Department Care Team (Late st Contact Info) Description 12/13/2024 1:30 PM EDT Office Visit Infectious Disease - [place] 175 [facility] [address] [place] [phone] Pennie Barksdale MD 175 [facility] [address] [place] [address] 02/21/2025 9:45 AM EST Office Visit Orthopedic Surgery - [place] 250 175 [facility] [address] [place] [phone] Salazar Sanchez DPM [address] [phone] Health Maintenance Due Date Last Done Comments Diabetes: Annual Retina Eye Exam 06/11/1967 Zoster Vaccines (1 of 2) 1976 Hepatitis B Vaccines (2 of 3 - [...] Cancer Screening: Stool Based Tests (FOBT/FIT) 01/26/2024 Social Influencers of Health Screening 01/26/2024 Depression Screening 03/22/2024 Influenza Vaccine (#1) 2024 , 01/14/2017, 03/28/2013, Additional history exists Diabetes: Annual Urine Albumin-Creatinine Ratio (uACR) 03/02/2025 03/02/2024, 11/27/2020, 11/30/2018 Diabetes: Blood Sugar Control Test (HGBA1C) 03/30/2025 09/27/2024, 06/15/2024, 11/18/2022, Additional history exists Diabetes: Annual Foot Exam 09/27/2025 09/27/2024, Diabetes: Annual GFR (Glomerular Filtration Rate) 10/04/2025 10/04/2024, 10/03/2024, 10/02/2024, Additional history exists Falls Risk Assessment 10/04/2025 10/04/2024 Hypertension/CHF/CAD Annual BMP Blood Test 10/04/2025 10/04/2024, 10/03/2024, 10/02/2024, Additional history exists DTaP,Tdap,and Td Vaccines (3 [...] on patient's age to complete this topic Goals Goal Patient Goal Type Associated Problems Recent Progress Patient-Stated? Author Decrease Wound Volume by X% by date (in notes) Care Plan Impaired Tissue Alyson Addison RN Patient and Caregiver Understand Wound Care Education Care Plan Impaired Tissue Alyson Addison RN Wound volume breakdown reduced by X% by week 4 Care Plan Impaired Tissue Alyson Addison RN Wound volume breakdown reduced by X% by week 8 Care Plan Impaired Tissue Alyson Addison RN Wound volume breakdown reduced by X% by week 12 Care Plan Impaired Tissue Alyson Addison RN Quit using tobacco (cigarettes, smokeless, etc) Care Plan Education needed on impact of smoking on wound Alyson Addison RN Reduce tobacco use (cigarettes, smokeless, etc) Care Plan Education needed on impact of smoking on wound Alyson Addison RN Decrease Wound Volume by X% by date (in notes) Care Plan Education needed on impact of smoking on wound Alyson Addison RN Patient and Caregiver Understand Wound Care Education Care Plan Education needed related to ulceration/compr omised skin integrity. Alyson Addison RN Procedures Procedure Name Priority Date/Time Associated Diagnosis Comments XR FOOT 3+ VIEWS RIGHT Routine 3:39 PM EDT Post-operative state POCT GLUCOSE BLOOD Routine 10/04/2024 8: 02 AM EDT CBC WITH AUTO DIFFERENTIAL Routine 10/04/2024 5:14 AM EDT PHOSPHORUS Routine 10/04/2024 5:14 AM EDT MAGNESIUM Routine 10/04/2024 5:14 AM EDT CBC AND DIFFERENTIAL Routine 10/04/2024 5:14 AM EDT BASIC METABOLIC PANEL Routine 10/04/2024 5:14 AM EDT POCT GLUCOSE BLOOD Routine 10/03/2024 7: 50 PM EDT VANCOMYCIN, RANDOM Add-On 10/03/2024 6: 14 AM EDT CBC WITH AUTO DIFFERENTIAL Routine 10/03/2024 6:14 AM EDT PHOSPHORUS Routine 10/03/2024 6:14 AM EDT MAGNESIUM Routine 10/03/2024 6:14 AM EDT CBC AND DIFFERENTIAL Routine 10/03/2024 6:14 AM EDT BASIC METABOLIC PANEL Routine 10/03/2024 6:14 AM EDT POCT GLUCOSE BLOOD Routine 10/02/2024 7: 35 PM EDT POCT GLUCOSE BLOOD Routine 10/02/2024 4: 11 PM EDT CREATININE, SERUM Routine 10/02/2024 2:3 1 PM EDT POCT GLUCOSE BLOOD Routine 10/02/2024 12 :01 PM EDT VANCOMYCIN, TROUGH Timed 10/02/2024 8: 09 AM EDT CBC WITH AUTO DIFFERENTIAL Routine 10/02/2024 8:09 AM EDT CBC AND DIFFERENTIAL Routine 10/02/2024 8:09 AM EDT BASIC METABOLIC PANEL Routine 10/02/2024 8:09 AM EDT POCT GLUCOSE BLOOD Routine 10/02/2024 7: 42 AM EDT POCT GLUCOSE BLOOD Routine 10/01/2024 8: 06 PM EDT POCT GLUCOSE BLOOD Routine 10/01/2024 3: 41 PM EDT POCT GLUCOSE BLOOD Routine 10/01/2024 10 :58 AM EDT POCT GLUCOSE BLOOD Routine 10/01/2024 8: 11 AM EDT POCT GLUCOSE BLOOD Routine 09/30/2024 9: 09 PM EDT POCT GLUCOSE BLOOD Routine 09/30/2024 8: 43 PM EDT POCT GLUCOSE BLOOD Routine 09/30/2024 8: 19 PM EDT POCT GLUCOSE BLOOD Routine 09/30/2024 7: 45 PM EDT POCT GLUCOSE BLOOD Routine 09/30/2024 3: 43 PM EDT POCT GLUCOSE BLOOD Routine 09/30/2024 10 :58 AM EDT POCT GLUCOSE BLOOD Routine 09/30/2024 8: 08 AM EDT CBC WITH AUTO DIFFERENTIAL Routine 09/30/2024 5:29 AM EDT VANCOMYCIN, RANDOM Routine 09/30/2024 5: 29 AM EDT CBC AND DIFFERENTIAL Routine 09/30/2024 5:29 AM EDT BASIC METABOLIC PANEL Routine 09/30/2024 5:29 AM EDT VANCOMYCIN, RANDOM Routine 09/29/2024 8: 12 PM EDT POCT GLUCOSE BLOOD Routine 09/29/2024 8: 08 PM EDT POCT GLUCOSE BLOOD Routine 09/29/2024 3: 47 PM EDT POCT GLUCOSE BLOOD Routine 09/29/2024 1: 53 PM EDT OXYGEN THERAPY, ADULT Routine 09/29/2024 1:41 PM EDT CULTURE WOUND DEEP Routine 09/29/2024 1: 24 PM EDT Osteomyelitis of right foot, unspecified type (CMS/HCC V24, CMS/HCC V28) TISSUE EXAM Routine 09/29/2024 1:22 PM EDT Osteomyelitis of right foot, unspecified type (CMS/HCC V24, CMS/HCC V28) AL INCISION BONE CORTEX FOOT 09/29/2024 12:51 PM EDT Osteomyelitis of right foot, unspecified type (CMS/HCC V24, CMS/HCC V28) POCT GLUCOSE BLOOD Routine 09/29/2024 11 :06 AM EDT VANCOMYCIN, TROUGH Timed 09/29/2024 8: 22 AM EDT BASIC METABOLIC PANEL Routine 09/29/2024 8:22 AM EDT POCT GLUCOSE BLOOD Routine 09/29/2024 7: 34 AM EDT POCT GLUCOSE BLOOD Routine 09/28/2024 7: 58 PM EDT POCT GLUCOSE BLOOD Routine 09/28/2024 4: 23 PM EDT POCT GLUCOSE BLOOD Routine 09/28/2024 11 :23 AM EDT POCT GLUCOSE BLOOD Routine 09/28/2024 8: 39 AM EDT POCT GLUCOSE BLOOD Routine 09/28/2024 8: 03 AM EDT MRSA PCR Routine 09/28/2024 7:22 AM EDT CBC WITH AUTO DIFFERENTIAL Routine 09/28/2024 5:19 AM EDT CBC AND DIFFERENTIAL Routine 09/28/2024 5:19 AM EDT MAGNESIUM Routine 09/28/2024 5:19 AM EDT BASIC METABOLIC PANEL Routine 09/28/2024 5:19 AM EDT POCT GLUCOSE BLOOD Routine 09/27/2024 9: 14 PM EDT MR FOOT WO AND W CONTRAST RIGHT Routine 09/27/2024 8:52 PM EDT HEMOGLOBIN A1C Add-On 09/27/2024 4:40 PM EDT SEDIMENTATION RATE STAT 09/27/2024 4: 40 PM EDT LACTATE STAT 09/27/2024 4:40 PM EDT CULTURE BLOOD STAT 09/27/2024 4:40 PM EDT CBC WITH AUTO DIFFERENTIAL STAT 09/27/2024 12:00 PM EDT BASIC METABOLIC PANEL STAT 09/27/2024 12:00 PM EDT CBC AND DIFFERENTIAL STAT 09/27/2024 12:00 PM EDT DEBRIDEMENT Routine 09/20/2024 12:45 PM EDT Type 2 diabetes mellitus with foot ulcer (CODE) (CMS/HCC V24, CMS/HCC V28) Non-pressure chronic ulcer of other part of right foot with bone involvement without evidence of necrosis (CMS/HCC V24, CMS/HCC V28) Type 2 diabetes mellitus with peripheral neuropathy (CMS/HCC V24, CMS/HCC V28) TISSUE EXAM Routine 09/19/2024 11:57 AM EDT Midfoot ulcer with necrosis of bone, right (CMS/HCC V24, CMS/HCC V28) CULTURE WOUND DEEP Routine 09/19/2024 11 :57 AM EDT Midfoot ulcer with necrosis of bone, right (CMS/HCC V24, CMS/HCC V28) COLONOSCOPY Routine 05/31/2024 1:33 PM EDT Chronic diarrhea HM URINE ALBUMIN CREATININE RATIO Routine 11/30/2018 LIPID PANEL Routine 11/30/2018 HEPATITIS C SCREENING Routine 10/19/2016 from Last 3 Months or Most Recently Relevant to Health Maintenance Results * XR Foot 3+ Views Right (10/11/2024 3:39 PM EDT) Anatomical Region Laterality Modality Lower Extremities, Foot Right Computed Radiography Narrative 10/11/2024 4:56 PM EDT Right foot 3 views Stable postoperative changes from resection of the 2nd, 3rd and 4th metatarsals with improved metatarsal probable Salazar Sanchez DPManjula IMG XR PROCEDURES Final R esult * (ABNORMAL) POCT Glucose, blood (10/04/2024 8:02 AM EDT) Only the most recent of28 resultswithin the time period is included. Glucose POCT 108(H) 70 - 100 mg/dL 10/04/2024 8:04 AM EDT [facility] Blood Capillary blood specimen / Unknown 10/04/2024 8:02 AM EDT 10/04/2024 8:07 AM EDT Erik Moody MD LAB POINT OF C ARE TEST DOCKED DEVICE UNSOLICITED RESULTS Final Result [facility] [address] [place] [address], [place] [phone] * (ABNORMAL) CBC auto differential (10/04/2024 5:14 AM EDT) Only the most recent of6 resultswithin the time period is included. WBC 6.6 4.8 - 10.8 K/mcL LAB HEMETOLOGY METHOD 10/04/2024 6:50 AM [facility] RBC 3.50(L) 4.50 - 5.50 M/mcL LAB HEMETOLOGY METHOD 10/04/2024 6:50 AM [facility] Hemoglobin 9.9(L) 13.5 - 17.5 g/dL LAB HEMETOLOGY METHOD 10/04/2024 6:50 AM [facility] Hematocrit 31.4(L) 42.0 - 54.0 % LAB HEMETOLOGY METHOD 10/04/2024 6:50 AM [facility] MCV 90.5 79.0 - 98.0 FL LAB HEMETOLOGY METHOD 10/04/2024 6:50 AM [facility] MCH 28.5 27.0 - 32.0 pcg LAB HEMETOLOGY METHOD 10/04/2024 6:50 AM [facility] MCHC 31.5(L) 32.0 - 37.0 g/dL LAB HEMETOLOGY METHOD 10/04/2024 6:50 AM [facility] RDW 14.2 11.0 - 15.0 % LAB HEMETOLOGY METHOD 10/04/2024 6:50 AM [facility] Platelets 248 130 - 400 K/mcL LAB HEMETOLOGY METHOD 10/04/2024 6:50 AM [facility] MPV 10.2 7.0 - 11.0 FL LAB HEMETOLOGY METHOD 10/04/2024 6:50 AM [facility] NRBC 0.0 <1.0 % LAB HEMETOLOGY METHOD 10/04/2024 6:50 AM [facility] NRBC Absolute 0.00 <0.10 K/mcL LAB HEMETOLOGY METHOD 10/04/2024 6:50 AM [facility] Neutrophils Relative 52.3 % LAB HEMETOLOGY METHOD 10/04/2024 6:50 AM [facility] Lymphocytes Relative 27.8 % LAB HEMETOLOGY METHOD 10/04/2024 6:50 AM [facility] Monocytes Relative 8.2 % LAB HEMETOLOGY METHOD 10/04/2024 6:50 AM [facility] Eosinophils Relative 10.4 % LAB HEMETOLOGY METHOD 10/04/2024 6:50 AM [facility] Basophils Relative 0.8 % LAB HEMETOLOGY METHOD 10/04/2024 6:50 AM [facility] Immature Granulocytes Relative 0.5 % LAB HEMETOLOGY METHOD 10/04/2024 6:50 AM [facility] Neutrophils Absolute 3.46 1.50 - 7.00 K/mcL LAB HEMETOLOGY METHOD 10/04/2024 6:50 AM [facility] Lymphocytes Absolute 1.84 1.00 - 5.00 K/mcL LAB HEMETOLOGY METHOD 10/04/2024 6:50 AM [facility] Monocytes Absolute 0.54 0.20 - 1.00 K/mcL LAB HEMETOLOGY METHOD 10/04/2024 6:50 AM [facility] Eosinophils Absolute 0.69(H) 0.00 - 0.50 K/mcL LAB HEMETOLOGY METHOD 10/04/2024 6:50 AM [facility] Basophils Absolute 0.05 0.00 - 0.20 K/mcL LAB HEMETOLOGY METHOD 10/04/2024 6:50 AM [facility] Immature Granulocytes Absolute 0.03 0.00 - 0.03 K/mcL LAB HEMETOLOGY METHOD 10/04/2024 6:50 AM [facility] Blood Venous blood specimen / Unknown Venipuncture / Unknown 10/04/2024 5:14 AM EDT 10/04/2024 6:27 AM EDT us Erik Moody MD LAB BLOOD ORDERABLES F inal Result [facility] [address] [place] [address], [place] [phone] * Phosphorus (10/04/2024 5:14 AM EDT) Only the most recent of2 resultswithin the time period is included. Phosphorus 2.9 2.5 - 4.5 mg/dL LAB CHEMISTRY METHOD 10/04/2024 8:30 AM EDT [facility] Blood Venous blood specimen / Unknown Venipuncture / Unknown 10/04/2024 5:14 AM EDT 10/04/2024 6:27 AM EDT us Erik Moody MD LAB BLOOD ORDERABLES F inal Result Performing Organization Address [facility]/ZIP Co de Phone Number [facility] [address] [place] [address], [place] [phone] * Magnesium (10/04/2024 5:14 AM EDT) Only the most recent of3 resultswithin the time period is included. Magnesium 2.1 1.9 - 2.6 mg/dL LAB CHEMISTRY METHOD 10/04/2024 8:30 AM EDT [facility] Blood Venous blood specimen / Unknown Venipuncture / Unknown 10/04/2024 5:14 AM EDT 10/04/2024 6:27 AM EDT us Erik Moody MD LAB BLOOD ORDERABLES F inal Result Performing Organization Address City/[facility]/ZIP Co de Phone Number [facility] [address] [place] [address], [place] [phone] * (ABNORMAL) Basic metabolic panel (10/04/2024 5:14 AM EDT) Only the most recent of7 resultswithin the time period is included. Sodium 140 133 - 145 mmol/L LAB CHEMISTRY METHOD 10/04/2024 8:30 AM [facility] Potassium 3.9 3.5 - 5.5 mmol/L LAB CHEMISTRY METHOD 10/04/2024 8:30 AM [facility] Chloride 110 96 - 110 mmol/L LAB CHEMISTRY METHOD 10/04/2024 8:30 AM [facility] CO2 26 21 - 32 mmol/L LAB CHEMISTRY METHOD 10/04/2024 8:30 AM [facility] Anion Gap 4 3 - 11 LAB CHEMISTRY METHOD 10/04/2024 8:30 AM [facility] Glucose 126(H) 70 - 100 mg/dL LAB CHEMISTRY METHOD 10/04/2024 8:30 AM [facility] BUN 16 5 - 25 mg/dL LAB CHEMISTRY METHOD 10/04/2024 8:30 AM [facility] Creatinine 1.16 0.70 - 1.30 mg/dL LAB CHEMISTRY METHOD 10/04/2024 8:30 AM [facility] eGFR 69 >=60 mL/min/1. 73m2 LAB CHEMISTRY METHOD 10/04/2024 8:30 AM [facility] Comment:Calculation based on the Chronic Kidney Disease Epidemiology Collaboration (CKD-EPI) equation refit without adjustment for race. BUN/Creatinine Ratio 13.8 LAB CHEMISTRY METHOD 10/04/2024 8:30 AM [facility] Calcium 8.4(L) 8.5 - 10.5 mg/dL LAB CHEMISTRY METHOD 10/04/2024 8:30 AM [facility] Blood Venous blood specimen / Unknown Venipuncture / Unknown 10/04/2024 5:14 AM EDT 10/04/2024 6:27 AM EDT us Erik Moody MD LAB BLOOD ORDERABLES F inal Result Performing Organization Address [facility] Co de Phone Number [facility] [address] [place] [address], [place] [phone] * Vancomycin random (10/03/2024 6:14 AM EDT) Only the most recent of3 resultswithin the time period is included. Pathologist [facility] Vancomycin Rm 14.5 mcg/mL LAB CHEMISTRY METHOD 10/03/2024 11:52 AM EDT [facility] Blood Venous blood specimen / Unknown Venipuncture / Unknown 10/03/2024 6:14 AM EDT 10/03/2024 6:48 AM EDT us Erik Moody MD LAB BLOOD ORDERABLES F inal Result Performing Organization Address [facility] de Phone Number [facility] [address] [place] [address], [place] [phone] * (ABNORMAL) Creatinine serum (10/02/2024 2:31 PM EDT) [facility] Creatinine 1.41(H) 0.70 - 1.30 mg/dL LAB CHEMISTRY METHOD 10/02/2024 3:10 PM EDT [facility] eGFR 55(L) >=60 mL/min/1. 73m2 LAB CHEMISTRY METHOD 10/02/2024 3:10 PM EDT [facility] Comment:Calculation based on the Chronic Kidney Disease Epidemiology Collaboration (CKD-EPI) equation refit without adjustment for race. Blood Venous blood specimen / Unknown Venipuncture / Unknown 10/02/2024 2:31 PM EDT 10/02/2024 2:44 PM EDT us Erik Moody MD LAB BLOOD ORDERABLES F inal Result Performing Organization Address [facility]/ZIP Co de Phone Number [facility] [address] [place] [address], * (ABNORMAL) Vancomycin, trough (10/02/2024 8:09 AM EDT) Only the most recent of2 resultswithin the time period is included. [facility] Vancomycin Trough 20.3(H) 10.0 - 20.0 mcg/mL LAB CHEMISTRY METHOD 10/02/2024 9:02 AM EDT [facility] Blood Venous blood specimen / Unknown Venipuncture / Unknown 10/02/2024 8:09 AM EDT 10/02/2024 8:31 AM EDT Jamel Reyes MD LAB BLOOD ORDERABLES Fi nal Result Performing Organization Address [facility]/ZIP Co de Phone Number [facility] [address] [place] [address], [place] [phone] * (ABNORMAL) Culture wound deep (09/29/2024 1:24 PM EDT) Only the most recent of2 resultswithin the time period is included. [facility] Culture, Wound Light Growth Staphylococcus simulans(A) JUSTIN 10/05/2024 7:50 AM EDT [facility] Comment: The organism value for this result has been updated. These results have been appended to the previously preliminary verified report. Edited result: Previously reported as Gram Positive Cocci on 10/03/2024 at 0807 EDT. Culture, Wound Light Growth Staphylococcus epidermidis(A) JUSTIN 10/05/2024 7:50 AM EDT [facility] Comment: The organism value for this result has been updated. These results have been appended to the previously preliminary verified report. Edited result: Previously reported as Gram Positive Cocci on 10/02/2024 at 0922 EDT. Gram Stain Result No polymorphonuclear leukocytes, No epithelial cells, and No organisms noted 10/05/2024 7:50 AM EDT [facility] Swab Structure of right foot / Unknown 09/29/2024 1:24 PM EDT 09/29/2024 2:05 PM EDT Narrative Organism Antibiotic Method Susceptibility Staphylococcus simulans Ciprofloxacin DISK DIFFUSION Susceptible Staphylococcus simulans Clindamycin DISK DIFFUSION Resistant Staphylococcus simulans Erythromycin DISK DIFFUSION Resistant Staphylococcus simulans Gentamicin DISK DIFFUSION Susceptible Staphylococcus simulans Levofloxacin DISK DIFFUSION Susceptible Staphylococcus simulans Oxacillin DISK DIFFUSION Susceptible Staphylococcus simulans Penicillin DISK DIFFUSION Susceptible Staphylococcus simulans Tetracycline DISK DIFFUSION Susceptible Staphylococcus simulans Trimethoprim/Sul famethoxa zole DISK DIFFUSION Susceptible Comment:If Vancomycin result s are required for treatment of the Staphylococcus coagulase negative isolate for this patient, please contact the Microbiology Dept. ([phone]) within 7 days to request alternate test method. Staphylococcus epidermidis Benzylpenicillin JUSTIN >=0.5 ug/ml: Resistant Staphylococcus epidermidis Oxacillin JUSTIN >=4 ug/ml: Resistant Staphylococcus epidermidis Gentamicin JUSTIN <=0.5 ug/ml: Susceptible Staphylococcus epidermidis Ciprofloxacin JUSTIN >=8 ug/ml: Resistant Staphylococcus epidermidis Levofloxacin JUSTIN >=8 ug/ml: Resistant Staphylococcus epidermidis Erythromycin JUSTIN >=8 ug/ml: Resistant Staphylococcus epidermidis Clindamycin JUSTIN >=8 ug/ml: Resistant Staphylococcus epidermidis Quinupristin/Dalfopristin JUSTIN <=0.25 ug/ml: Susceptible Staphylococcus epidermidis Linezolid JUSTIN 2 ug/ml: Susceptible Staphylococcus epidermidis Vancomycin JUSTIN 1 ug/ml: Susceptible Staphylococcus epidermidis Tetracycline JUSTIN >=16 ug/ml: Resistant Staphylococcus epidermidis Rifampin JUSTIN <=0.5 ug/ml: Susceptible us Salazar Sanchez DPM LAB MICROBIOLOGY - GENERA L ORDERABLES Final Result [facility] [address] [place] [address], * Tissue exam (09/29/2024 1:22 PM EDT) Only the most recent of2 resultswithin the time period is included. Final Diagnosis A. Foot, Right, bone margin from 2nd, 3rd, 4th, and 5th metatarsal bone: -VIABLE APPEARING BONE B. Foot, Right, bone from 2nd, 3rd and 4th metatarsal bone: -ACUTE OSTEOMYELITIS 10/03/2024 9:31 AM EDT [facility] Gross Description A. Foot, Right, bone clean margin from 2nd, 3rd, 4th, and 5th metatarsal bone: Labeled foot R, bone nael . Received in formalin is a 1.1 x 0.6 x 0.3 cm aggregate of irregular red-brown disrupted bone fragments which is wrapped in paper and submitted in toto in one cassette following decalcification, multiple pieces. B. Foot, Right, dirty bone from 2nd, 3rd and 4th metatarsal bone: Labeled foot R, dirty bon . Received in formalin are three irregular disrupted portions of bone and rubbery soft tissue, ranging from 1.5 cm to 3.8 cm in greatest dimension. There is moderate attached pink-red rubbery soft tissue. The cartilage covered articular surfaces are calderon-white and smooth to focally grooved and disrupted. The trabecular bone is pink-red to calderon-yellow. Precision Dyer sections are submitted in two cassettes following decalcification, two pieces each. BESSIE 10/03/2024 9:31 AM EDT [facility] Disclaimer Unless otherwise specified, all tissue is 10% NB formalin fixed and paraffin embedded. 10/03/2024 9:31 AM EDT [facility] Bone Structure of right foot / Unknown 09/29/2024 1:22 PM EDT 09/29/2024 2:53 PM EDT Specimen from bone (specimen) Structure of right foot / Unknown 09/29/2024 1:24 PM EDT 09/29/2024 2:53 PM EDT us Salazar Sanchez DPM LAB PATHOLOGY ORDERABLES Final Result [facility] [address] [place] [address], * MRSA molecular study (09/28/2024 7:22 AM EDT) MRSA Screen PCR Not Detected Not Detected LAB MICROBIOLOGY METHOD 09/28/2024 10:23 AM EDT [facility] Swab Nasopharyngeal structure / Unknown Non-blood Collection / Unknown 09/28/2024 7:22 AM EDT 09/28/2024 8:56 AM EDT Lyssa MORAES LAB MICROBIOLOGY - GENERAL OR DERABLES Final Result [facility] [address] [place] [address], [place] [phone] * MR Foot wo and w Contrast Right (09/27/2024 8:52 PM EDT) Anatomical Region Laterality Modality Lower Extremities, Foot Right Magnetic Resonance 09/27/2024 9:44 PM EDT Impressions 09/27/2024 9:44 PM EDT Impression: 1. 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 2. Severe cellulitis of the remaining foot. Small soft tissue wound/ulcer of the plantar foot at the level of the 3rd metatarsal head with fluid collection/abscess extending from the skin surface to the head of the 3rd metatarsal. Osteomyelitis identified in the 2nd, 3rd and 4th metatarsals. Abnormal bone marrow edema and enhancement seen in the remaining portion of the 1st metatarsal is concerning for osteomyelitis as well. 3. Abnormal bone marrow edema and enhancement of the navicular with no osseous erosion. Findings could represent osteomyelitis or stress reaction. No acute fracture. This document has been electronically signed by: Pat Logan MD on 09/27/2024 21:44:11 Narrative 09/27/2024 9:44 PM EDT INDICATION: diabetic foot infection, concern for osteomyelitis Exam: MRI of the right foot with and without contrast. Comparison: 06/15/2024. Clinical history: Diabetic foot infection. Concern for osteomyelitis. Findings: Prior amputation of the 1st and 5th digits as seen on prior x-ray. The 2nd 3rd and 4th toe amputations are new since the prior radiographs. Edema in the subcutaneous fat of the foot consistent with severe cellulitis. Small soft tissue wound/ulcer seen at the plantar aspect of the foot at the level of the 3rd metatarsal head seen on series 4 and 10 images 14-15. Small fluid collection extending from the skin defect to the head of the 3rd metatarsal reflective of soft tissue abscess seen on series 10, image 14. Abnormal bone marrow edema and enhancement of the 2nd, 3rd and 4th metatarsals consistent with osteomyelitis. Abnormal bone marrow edema and enhancement seen at the remaining portion of the 1st metatarsal is concerning for osteomyelitis. 5th metatarsal does not demonstrate osteomyelitis. Abnormal bone marrow edema and enhancement of the navicular with no osseous erosion. Findings could represent osteomyelitis or stress reaction. No acute fracture. Procedure Note Pat Logan MD - 09/27/2024 INDICATION: diabetic foot infection, concern for osteomyelitis Exam: MRI of the right foot with and without contrast. Comparison: 06/15/2024. Clinical history: Diabetic foot infection. Concern for osteomyelitis. Findings: Prior amputation of the 1st and 5th digits as seen on prior x-ray. The 2nd 3rd and 4th toe amputations are new since the prior radiographs. Edema in the subcutaneous fat of the foot consistent with severe cellulitis. Small soft tissue wound/ulcer seen at the plantar aspect of the foot at the level of the 3rd metatarsal head seen on series 4 and 10 [id number]. Small fluid collection extending from the skin defect to the head of the 3rd metatarsal reflective of soft tissue abscess seen on series 10,image 14. Abnormal bone marrow edema and enhancement of the 2nd, 3rd and 4th metatarsals consistent with osteomyelitis. Abnormal bone marrow edema and enhancement seen at the remaining portion of the 1st metatarsal is concerning for osteomyelitis. 5th metatarsal does not demonstrate osteomyelitis. Abnormal bone marrow edema and enhancement of the navicular with no osseous erosion. Findings could represent osteomyelitis or stress reaction. No acute fracture. IMPRESSION: Impression: 1. 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 2. Severe cellulitis of the remaining foot. Small soft tissuewound/ulcer of the plantar foot at the level of the 3rd metatarsal head with fluid collection/abscess extending from the skin surface to the head of the3rd metatarsal. Osteomyelitis identified in the 2nd, 3rd and 4thmetatarsals. Abnormal bone marrow edema and enhancement seen in the remaining portion of the 1st metatarsal is concerning for osteomyelitis as well. 3. Abnormal bone marrow edema and enhancement of the navicular with no osseous erosion. Findings could represent osteomyelitis or stress reaction. No acute fracture. This document has been electronically signed by: Pat Logan MD on 09/27/2024 21:44:11 Lyssa MORAES IMG MRI PROCEDURES Final Resu lt * Blood culture (09/27/2024 4:40 PM EDT) Pathologist [facility] Culture, Blood No growth at 5 days 10/02/2024 6:01 PM EDT [facility] Blood Venous blood specimen / Unknown Venipuncture / Unknown 09/27/2024 4:40 PM EDT 09/27/2024 5:15 PM EDT Aristeo Lawson MD LAB MICROBIOLOGY - GENERAL ORD ERABLES Final Result Performing Organization Address [facility]/ZIP Co de Phone Number [facility] [address] [place] [address], [place] [phone] * (ABNORMAL) Sedimentation rate, automated (09/27/2024 4:40 PM EDT) [facility] Sed Rate 33(H) 0 - 20 mm/hr LAB HEMETOLOGY METHOD 09/27/2024 6:29 PM EDT [facility] Blood Venous blood specimen / Unknown Venipuncture / Unknown 09/27/2024 4:40 PM EDT 09/27/2024 6:21 PM EDT Aristeo Lawson MD LAB BLOOD ORDERABLES Final Res ult Performing Organization Address City/[facility]/ZIP Co de Phone Number [facility] [address] [place] [address], [place] [phone] * Lactate (09/27/2024 4:40 PM EDT) [facility] Lactate 1.4 0.4 - 2.0 mmol/L LAB CHEMISTRY METHOD 09/27/2024 6:46 PM EDT [facility] Blood Venous blood specimen / Unknown Venipuncture / Unknown 09/27/2024 4:40 PM EDT 09/27/2024 5:16 PM EDT us Aristeo Lawson MD LAB BLOOD ORDERABLES Final Res ult Performing Organization Address [facility] de Phone Number [facility] [address] [place] [address], [place] [phone] * (ABNORMAL) Hemoglobin A1c (09/27/2024 4:40 PM EDT) Hemoglobin A1C 7.8(H) <6.5 % LAB CHEMISTRY METHOD 09/28/2024 1:36 PM EDT [facility] Mean Bld Glu Estim. 177 mg/dL LAB CHEMISTRY METHOD 09/28/2024 1:36 PM EDT [facility] Blood Venous blood specimen / Unknown Venipuncture / Unknown 09/27/2024 4:40 PM EDT 09/27/2024 6:21 PM EDT us Lyssa MORAES LAB BLOOD ORDERABLES Final Re sult Performing Organization Address [facility] Co de Phone Number [facility] [address] [place] [address], [place] [phone] * Debridement Diabetic Ulcer Right;Plantar Foot (09/20/2024 12:45 PM EDT) Narrative Aftab Dimas MD - 09/20/2024 12:45 PM EDT ALEISHA Seth 09/20/2024 2:10 PM Debridement Diabetic Ulcer Right;Plantar Foot Performed by: ALEISHA Seth Authorized by: ALEISHA Seth Associated wounds: Wound Diabetic Ulcer Foot Right;Plantar Consent: Consent obtained: Verbal Consent given by: Patient Risks discussed: Yes Time out: Immediately prior to the procedure a time out was called Debridement Details: Performed by: ALEISHA Type: surgical Level: subcutaneous tissue Pain control: Lidocaine 4% Severity of Tissue Pre Debridement: Fat layer exposed Severity of Tissue Post Debridement: Fat layer exposed Time taken: 09/20/2024 12:51 PM Length (cm): 1.1 Width (cm): 0.7 Depth (cm): 1.4 Area (cm^2): 0.77 Time taken: 09/20/2024 12:52 PM Length (cm): 1.1 Width (cm): 0.7 Depth (cm): 1.4 Percent Debrided (%): 100 Surface Area (cm^2): 0.77 Area Debrided (cm^2): 0.77 Volume (cm^3): 1.08 Tissue and other material debrided: dermis, epidermis and subcutaneous tissue Devitalized tissue debrided: biofilm and slough Instrument: Curette Amount of bleeding: none Hemostasis obtained with: Not applicable Procedural pain: 0 Post-procedural pain: 0 Response to treatment: Procedure was tolerated well us Isra MORAES IN CLINIC/BEDSIDE ORDERABLE S Final Result * COLONOSCOPY Anesthesia - MAC; [facility] ENDOSCOPY (05/31/2024 1:33 PM EDT) Anatomical Region Laterality Modality Endoscopy 05/31/2024 1:15 PM EDT Impressions 05/31/2024 1:36 PM EDT - Diverticulosis in the sigmoid colon and in the descending colon. - Internal hemorrhoids. - No specimens collected. Recommendation: - No repeat colonoscopy due to current age (66 years or older). - Use original regular Metamucil one teaspoon PO BID. Narrative 05/31/2024 1:36 PM EDT [facility] Patient Name: Haim Wren Procedure Date: 05/31/2024 1:15 PM Date of : 1955 Age: 68 Gender: Male Note Status: Finalized Attending MD: Katrina Dewitt MD, Procedure Date No Time: 05/31/2024 Procedure: Colonoscopy Indications: Change in bowel habits Providers: Katrina Dewitt MD Referring MD: Traci Mckinnon MD Medicines: Monitored Anesthesia Care Complications: No immediate complications. Estimated blood loss: None. Estimated Blood Loss: Estimated blood loss: none. Procedure: Pre-Anesthesia Assessment: - Prior to the procedure, a History and Physical was performed, and patient medications and allergies were reviewed. The patient is competent. The risks and benefits of the procedure and the sedation options and risks were discussed with the patient. All questions were answered and informed consent was obtained. Patient identification and proposed procedure were verified by the physician, the nurse, the film masker and the darkroom technician in the pre-procedure area in the endoscopy suite. Mental Status Examination: alert and oriented. Airway Examination: normal oropharyngeal airway and neck mobility. Respiratory Examination: clear to auscultation. CV Examination: normal. Prophylactic Antibiotics: The patient does not require prophylactic antibiotics. Prior Anticoagulants: The patient has taken no anticoagulant or antiplatelet agents. ASA Grade Assessment: III - A patient with severe systemic disease. After reviewing the risks and benefits, the patient was deemed in satisfactory condition to undergo the procedure. The anesthesia plan was to use monitored anesthesia care (MAC). Immediately prior to administration of medications, the patient was re-assessed for adequacy to receive sedatives. The heart rate, respiratory rate, oxygen saturations, blood pressure, adequacy of pulmonary ventilation, and response to care were monitored throughout the procedure. The physical status of the patient was re-assessed after the procedure. After I obtained informed consent, the scope was passed under direct vision. Throughout the procedure, the patient's blood pressure, pulse, and oxygen saturations were monitored continuously. The Olympus Colonoscope was introduced through the anus and [...] and descending colon. Internal hemorrhoids were found during retroflexion. The hemorrhoids were Grade II (internal hemorrhoids that prolapse but reduce spontaneously). Procedure Code(s): --- Professional --- 26556, Colonoscopy, flexible; diagnostic, including collection of specimen(s) by brushing or washing, when performed (separate procedure) Diagnosis Code(s): --- Professional --- R19.4, Change in bowel habit CPT copyright 2020 [employer]. All rights reserved. The codes documented in this report are preliminary and upon motion picture actor review may be revised to meet current compliance requirements. Katrina Dewitt MD 05/31/2024 1:36:28 PM This report has been signed electronically.Katrina Dewitt MD Number of Addenda: 0 Note Initiated On: 05/31/2024 1:15 PM Scope Withdrawal Time: 0 hours 8 minutes 12 seconds Scope In: 1:22:11 PM Scope Out: 1:33:23 PM Endoscopy Department at [facility] - [address] [place] [phone] Procedure Note Katrina Dewitt MD - 05/31/2024 [facility] Patient Name: Haim Wren Procedure Date: 05/31/2024 1:15 PM Date [...] the physician, the nurse, theanesthetist and the darkroom technician in the pre-procedure area in the [...] reduce spontaneously). Procedure Code(s): --- Professional --- 71794, Colonoscopy, flexible; diagnostic, including collection of specimen(s) by brushing or washing,when performed (separate procedure) Diagnosis Code(s): --- Professional --- R19.4, Change in bowel habit CPT copyright 2020 [employer]. All rights reserved. The codes documented in this report are preliminary and upon motion picture actor reviewmay be revised to meet current compliance requirements. Katrina Dewitt MD 05/31/2024 1:36:28 PM This report has been signed electronically.Katrina Dewitt MD Number of Addenda: 0 Note Initiated On: 05/31/2024 1:15 PM Scope Withdrawal Time: 0 hours 8 minutes 12 seconds Scope In: 1:22:11 PM Scope Out: 1:33:23 PM Endoscopy Department at [facility] - [address] [place] [phone] IMPRESSION: - Diverticulosis in the sigmoid colon and in the descending colon. - Internal hemorrhoids. - No specimens collected. Recommendation: - No repeat colonoscopy due to current age (66years or older). - Use original regular Metamucil one teaspoon POBID. us Katrina Dewitt MD GI~PROCEDURE ORDERABLES Fin al Result * HM Urine Albumin Creatinine Ratio (11/30/2018) Urine Albumin Creatinine Ratio Abstracted us Historical Provider HEALTH MAINTENANCE Final Result * (ABNORMAL) Lipid panel (11/30/2018) LDL/HDL Ratio 4 0 - 4 Triglycerides 82 0 - 150 mg/dL Cholesterol 154 0 - 200 mg/dL HDL 39(A) >=40 mg/dL LDL Cholesterol 99 0 - 100 mg/dL Blood Venous blood specimen / Unknown Historical Provider LAB BLOOD ORDERABLES Allegra l Result * Hepatitis C Screening (10/19/2016) Hepatitis C Screening Abstracted [facility] Provider HEALTH MAINTENANCE Final Result from Last 3 Months or Most Recently Relevant to Health Maintenance Additional Health Concerns Active Problems Noted Date Diagnosed Date Impaired Tissue 09/20/2024 Education needed on impact of smoking on wound 0 09/20/2024 Education needed related to ulceration/compromised skin integrity. 09/20/[address] [facility] MEDICARE Advance Directives * Full Code - Default (Latest Code Status on File) Date Activated Date Inactivated Comments 09/27/2024 5:41 PM 10/04/2024 8:04 PM This is order is used when code status has not been discussed with the patient, or code status is otherwise unknown/unconfirmed To update the patient's code status, place a code status order. Do not modify or discontinue any currently active code status orders. * Full Code - Default Date Activated Date Inactivated Comments 08/09/2024 3:40 PM 08/09/2024 7:35 PM This is orde r is used when code status has not been discussed with the patient, or code status is otherwise unknown/unconfirmed To update the patient's code status, place a code status order. Do not modify or discontinue any currently active code status orders. * Full Code - Default Date Activated Date Inactivated Comments 08/09/2024 12:49 PM 08/09/2024 3:40 PM This is ord er is used when code status has not been discussed with the patient, or code status is otherwise unknown/unconfirmed To update the patient's code status, place a code status order. Do not modify or discontinue any currently active code status orders. * Full Code - Default Date Activated Date Inactivated Comments 06/15/2024 4:46 [...] White Spouse Health Care Agent Care Teams Warper Tender Relationship Specialty Start Date End Date Traci Mckinnon MD [address] [place] [address] CT PCP - General Internal Medicine 02/10/24
--- OUTSIDE RECORDS SUMMARY | 2024-12-06 16:32 | XMS_ITS | Clinical Summary ---
Author Organization [facility] Address [address] [address] Phone Care Team Providers Care Senior Engineering Specialist Name Role Phone Unavailable Primary Care Provider Unavailabl e Social History Tobacco Use Types Packs/Day Years Used Date Smoking Tobacco: Never Assessed Education Answer Date Recorded Are you interested in more education? Not on chapin e 07/18/2022 Are you concerned about learning? Not on file 07/18/2022 No 07/18/2022 No 07/18/2022 Digital Access Answer Date Recorded No 08/15/2022 No 08/15/2022 No 08/15/2022 Reliable internet access at home? Not on file 08/15/2022 Device with a working camera? Not on file Sex and Gender Information Value Date Recorded Sex Assigned at Not on file Legal Sex Male 2:39 PM EDT Gender Identity Not on file Sexual Orientation Not on file Plan of Treatment Health Maintenance Due Date Last Done Comments Adult Td,Tdap Booster 1955 LIPID PANEL 1955 DEPRESSION SCREENING 1969 SMOKING Hx and SMOKELESS TOBACCO SCREENING 1970 HEPATITIS C SCREENING 06/11/1975 COLOGUARD 2002 COLONOSCOPY 2002 COLORECTAL CANCER SCREENING 2002 FIT TEST 2002 FOBT 2002 SIGMOIDOSCOPY 2002 VIRTUAL COLONOSCOPY 2002 PNEUMOCOCCAL VACCINES (50+ years) (1 of 1 - PCV) 06/11/2007 ZOSTER VACCINES (1 of 2) 06/11/2007 INFLUENZA VACCINE (#1) 2024 2, 01/14/2017, 03/28/2013, Additional history exists COVID-19 VACCINE (2 - season) 2024 02/21/2021 RSV VACCINE (1 - 1-dose 75+ series) 2032 HEPATITIS A VACCINES Aged Out No long er eligible based on patient's age to complete this topic HIB VACCINES Aged Out No longer eligi ble based on patient's age to complete this topic MENINGOCOCCAL VACCINES (ACWY) Aged Out No longer eligible based on patient's age to complete this topic MENINGOCOCCAL VACCINES (B) Aged Out N o longer eligible based on patient's age to complete this topic Medical Devices Not on file Additional Source Comments The information contained in this document represents components of the legal health record. It is not the complete legal health record.[facility]
--- OUTSIDE RECORDS SUMMARY | 2024-12-06 16:33 | XMS_ITS ---
Care Plan Created on: December 06, 2024 Eran Wren : 1955 Sex: Male Author Organization [facility] Address [address] [place] [address] Phone Care Team Providers Care Collection Systems Worker Name Role Phone Tarci Mckinnon MD Primary Care Provide r Active Problems Patient Care Coordination No te Formatting of this note migh t be different from the original. No accepting VNA services, Option care for IV abx. 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 ([facility] V24, [facility] V28) 09/20/2024 Type 2 diabetes mellitus wit h peripheral neuropathy ([facility] V24, [facility] V28) 09/20/2024 Skin ulcer of second toe of left foot with fat layer exposed ([facility] V24, [facility] V28) 07/13/2024 Osteomyelitis of second toe of left foot ([facility] V24, [facility] V28) 07/13/2024 Diabetic foot infection ([facility] V24, [facility] V2 8) 06/15/2024 Osteomyelitis ([facility] V24, [facility] V28) 025 Osteomyelitis of great toe o f right foot ([facility] V24, [facility] V28) 04/10/2024 Type 2 diabetes mellitus wit h diabetic neuropathy, with long-term current use of insulin ([facility] V24, [facility] V28) 01/27/2024 CAD (coronary artery disease) 03/01/2017 Overview (01/27/2024): CABG 2014 Obesity (BMI 30.0-34.9) 03/01/2017 Diabetic ulcer of left fifth toe ([facility] V24, [facility] V28) 02/16/2017 Osteomyelitis of toe of left foot ([facility] V24, [facility] V28) 12/14/2016 Old SD (myocardial infarction) 10/05/2014 Overview (01/27/2024): nstemi Type II diabetes mellitus wi th renal manifestations ([facility] V24, [facility] V28) 11/26/2011 Hyperlipidemia 04/02/2011 Hypertension 04/02/2011 Additional Health Concerns Active Problems Noted Date Diagnosed Date Impaired Tissue 09/20/2024 Education needed on impact of smoking on wound 0 09/20/2024 Education needed related to ulceration/compromised skin integrity. 09/20/2024 Goals Goal Patient Goal Type Associated Problems [...] ulceration/compr omised skin integrity. Alyson Addison RN Interventions Care Plan Interventions Intervention Entry Date Outcome Provide caregiver with wound care procedure information 09/20/2024 Educate caregiver on proper wound care procedures 09/20/2024 Give provider list of wound care supplies 09/20/2024 Refill wound care supplies 09/20/2024 Send Wound Care Supplies 09/20/2024 Give provider list of wound care supplies 09/20/2024 Refill wound care supplies 09/20/2024 Send Wound Care Supplies 09/20/2024 Provide caregiver with wound care procedure information 09/20/2024 Educate caregiver on proper wound care procedures 09/20/2024 Document patient eligibility for HBO 09/20/2024 Assess patient for HBO treatment 09/20/2024 Record wound depth 09/20/2024 Record total wound area 09/20/2024 Measure wound progress 09/20/2024 Create an action plan identifying patient strengths and supports 09/20/2024 Establish quit date with patient 09/20/2024 Discuss prior cessation attempts 09/20/2024 Discuss preferred method of cessation and plan 09/20/2024 Discuss barriers to smoking cessation 09/20/2024 Discuss smoking status with patient 09/20/2024 Create an action plan identifying patient strengths and supports 09/20/2024 Establish quit date with patient 09/20/2024 Discuss prior cessation attempts 09/20/2024 Discuss preferred method of cessation and plan 09/20/2024 Discuss barriers to smoking cessation 09/20/2024 Discuss smoking status with patient 09/20/2024 Provide caregiver with wound care procedure information 09/20/2024 Educate caregiver on proper wound care procedures 09/20/2024 Document patient eligibility for HBO 09/20/2024 Assess patient for HBO treatment 09/20/2024 Record wound depth 09/20/2024 Record total wound area 09/20/2024 Measure wound progress 09/20/2024 Provide caregiver with wound care procedure information 09/20/2024 Educate caregiver on proper wound care procedures 09/20/2024 Document patient eligibility for HBO 09/20/2024 Assess patient for HBO treatment 09/20/2024 Record wound depth 09/20/2024 Record total wound area 09/20/2024 Measure wound progress 09/20/2024 Provide caregiver with wound care procedure information 09/20/2024 Educate caregiver on proper wound care procedures 09/20/2024 Document patient eligibility for HBO 09/20/2024 Assess patient for HBO treatment 09/20/2024 Record wound depth 09/20/2024 Record total wound area 09/20/2024 Measure wound progress 09/20/2024 Provide caregiver with wound care procedure information 09/20/2024 Educate caregiver on proper wound care procedures 09/20/2024 Give provider list of wound care supplies 09/20/2024 Refill wound care supplies 09/20/2024 Give provider list of wound care supplies 09/20/2024 Refill wound care supplies 09/20/2024 Provide caregiver with wound care procedure information 09/20/2024 Educate caregiver on proper wound care procedures 09/20/2024 Record wound depth 09/20/2024 Record total wound area 09/20/2024 Measure wound progress 09/20/2024 Related Goals and Interventions Goal Associated Intervent ions Decrease Wound Volume by X% by date (in notes) Give provider list of wound care supplie s; Refill wound care supplies; Provide caregiver with wound care procedure information; Educate caregiver on proper wound care procedures; Record wound depth; Record total wound area; Measure wound progress Patient and Caregiver Unders tand Wound Care Education Provide caregiver with wound care proced ure information; Educate caregiver on proper wound care procedures; Give provider list of wound care supplies; Refill wound care supplies Wound volume breakdown reduc ed by X% by week 4 Provide caregiver with wound care proced ure information; Educate caregiver on proper wound care procedures; Document patient eligibility for HBO; Assess patient for HBO treatment; Record wound depth; Record total wound area; Measure wound progress Wound volume breakdown reduc ed by X% by week 8 Provide caregiver with wound care proced ure information; Educate caregiver on proper wound care procedures; Document patient eligibility for HBO; Assess patient for HBO treatment; Record wound depth; Record total wound area; Measure wound progress Wound volume breakdown reduc ed by X% by week 12 Provide caregiver with wound care proced ure information; Educate caregiver on proper wound care procedures; Document patient eligibility for HBO; Assess patient for HBO treatment; Record wound depth; Record total wound area; Measure wound progress Quit using tobacco (cigarett es, smokeless, etc) Create an action plan identifying patien t strengths and supports; Establish quit date with patient; Discuss prior cessation attempts; Discuss preferred method of cessation and plan; Discuss barriers to smoking cessation; Discuss smoking status with patient Reduce tobacco use (cigarett es, smokeless, etc) Create an action plan identifying patien t strengths and supports; Establish quit date with patient; Discuss prior cessation attempts; Discuss preferred method of cessation and plan; Discuss barriers to smoking cessation; Discuss smoking status with patient Decrease Wound Volume by X% by date (in notes) Give provider list of wound care supplie s; Refill wound care supplies; Send Wound Care Supplies; Provide caregiver with wound care procedure information; Educate caregiver on proper wound care procedures; Document patient eligibility for HBO; Assess patient for HBO treatment; Record wound depth; Record total wound area; Measure wound progress Patient and Caregiver Unders tand Wound Care Education Provide caregiver with wound care proced ure information; Educate caregiver on proper wound care procedures; Give provider list of wound care supplies; Refill wound care supplies; Send Wound Care Supplies
== END 2024-12-06 13:46 | disposition home or self-care (01) ==
LOC: HO.ENCR 13:03
PROVIDERS: PCP Internal Medicine; Visit Provider Internal Medicine Endocrinology, Diabetes & Metabolism
DX: E11.9 Type 2 diabetes mellitus without complications (principal)
CPT/HCPCS: 99214; G2211

== ENCOUNTER → 2024-12-06 13:03 | Outpatient (BNVA) | payer OTHER, SELFPAY | PROVIDERS: PCP Internal Medicine; Visit Provider Internal Medicine Endocrinology, Diabetes & Metabolism | DX: E11.9 Type 2 diabetes mellitus without complications (principal); Z79.4 Long term (current) use of insulin; Z79.84 Long term (current) use of oral hypoglycemic drugs; Z79.85 Long-term (current) use of injectable non-insulin antidiabetic drugs; Z96.41 Presence of insulin pump (external) (internal) | CPT/HCPCS: 82947; 83036 ==